=== PATIENT | male | born 1955 | race Caucasian/White ===

== ENCOUNTER → 2017-12-11 07:17 | Outpatient (CLI) | payer OTHER, SELFPAY ==
[2017-12-11 08:03] LABS: Hemoglobin A1c 7.7 % (4.2-6.3)
[2017-12-11 08:09] LABS: AST(SGOT) 19 U/L (15-37); Alanine Aminotransfer ALT/SGPT 29 U/L (16-61); Albumin, Serum 3.3 g/dL (3.2-5.0); Alkaline Phosphatase 48 U/L (45-117); Bilirubin, Direct 0.07 mg/dL (0.00-0.30); Cholesterol 149 mg/dL (200); Globulin 4.1 g/dL (2.2-4.2); High Density Lipoprotein 34 mg/dL; Protein, Total 7.4 g/dL (6.4-8.2); Triglycerides 118 mg/dL; Very Low Density Lipoprotein 24 mg/dL (5-40)
[2017-12-11 08:12] LABS: ALB/GLOB Ratio 0.8 RATIO (0.9-2.4); AST(SGOT) 16 U/L (15-37); Alanine Aminotransfer ALT/SGPT 27 U/L (16-61); Albumin, Serum 3.3 g/dL (3.2-5.0); Alkaline Phosphatase 49 U/L (45-117); Anion Gap 3 (5-15); BUN 14 mg/dL (7-18); BUN/Creat Ratio 13.7 RATIO (10-20); Calcium,Total 8.9 mg/dL (8.5-10.1); Chloride 97 mmol/L (98-107); Creatinine, Serum 1.02 mg/dL (0.70-1.30); EST Glomerular Filtration Rate 79 mL/min (>60); Est Glom Filt Rate - Afr Amer 96 mL/min (>60); Globulin 4.2 g/dL (2.2-4.2); Glucose 164 mg/dL (74-106); Potassium 4.8 mmol/L (3.5-5.1); Protein, Total 7.5 g/dL (6.4-8.2); Sodium Level 135 mmol/L (136-145)
[2017-12-11 08:54] LABS: Microalbumin,Random Urine 8.9 mg/L (NO RANGE EST.); Microalbumin:Creatinine Ratio 5.1 mg/g CRE (<30 mg/g CRE)
== END ==
PROVIDERS: Nurse Practitioner; Family Provider Nurse Practitioner Adult Health; PCP Nurse Practitioner Adult Health; Visit Provider Internal Medicine Cardiovascular Disease
DX: E11.9 Type 2 diabetes mellitus without complications (principal); E78.00 Pure hypercholesterolemia, unspecified
CPT/HCPCS: 36415; 80053; 80061; 80076; 82043; 82570; 83036

== ENCOUNTER → 2018-03-24 08:54 | Outpatient (CLI) | payer OTHER, SELFPAY ==
[2018-03-24 09:36] LABS: AST(SGOT) 15 U/L (15-37); Alanine Aminotransfer ALT/SGPT 29 U/L (16-61); Albumin, Serum 3.3 g/dL (3.2-5.0); Alkaline Phosphatase 52 U/L (45-117); Bilirubin, Direct 0.14 mg/dL (0.00-0.30); Cholesterol 150 mg/dL (200); Globulin 4.3 g/dL (2.2-4.2); High Density Lipoprotein 32 mg/dL; Protein, Total 7.6 g/dL (6.4-8.2); Triglycerides 122 mg/dL; Very Low Density Lipoprotein 24 mg/dL (5-40)
== END ==
PROVIDERS: Family Provider Nurse Practitioner Adult Health; PCP Nurse Practitioner Adult Health; Referring Provider Nurse Practitioner Family; Visit Provider Nurse Practitioner Family
DX: I25.10 Atherosclerotic heart disease of native coronary artery without angina pectoris (principal); E78.00 Pure hypercholesterolemia, unspecified; I10 Essential (primary) hypertension; R06.09 Other forms of dyspnea
CPT/HCPCS: 36415; 80061; 80076; 83880

== ENCOUNTER → 2018-04-07 06:11 | Outpatient (CLI) | payer OTHER, SELFPAY ==
--- NOTE | 2018-04-07 06:14 | ECHOD_ITS ---
Reason For Study: Dyspnea/SOB Procedure This was a 2D Doppler, Color Flow transthoracic echocardiogram. Exam performed in department. Left Ventricle Normal LV size. Left ventricular systolic function is normal. The estimated ejection fraction is 65 %. Stage 1 diastolic dysfunction. No regional wall motion abnormalities noted. Right Ventricle Normal RV size. Normal systolic function. Atria Normal left atrium. Normal right atrium. Mitral Valve Normal mitral valve. Mild (1+) eccentric mitral valve insufficiency. Tricuspid Valve Normal tricuspid valve. Mild tricuspid valve insufficiency. Aortic Valve Trisinus/trileaflet aortic valve. Mild focal aortic valve calcification. Mild (1+) eccentric aortic valve insufficiency. Pulmonic Valve Normal pulmonic valve. Great Vessels Normal aortic root. The pulmonary artery is normal size. Normal inferior vena cava. Pericardium/Pleural No pericardial effusion. MMode/2D Measurements & Calculations LVIDd: 4.8 cm IVSd: 1.8 cm LVOT diam: 2.1 cm LVIDs: 3.1 cm LVPWd: 1.1 cm LVOT area: 3.6 cm2 RVDd: 4.3 cm FS: 35.5 % Ao root diam: 3.7 cm LAV(MOD-bp): 54.4 ml LVAd ap4: 33.5 cm2 LAV(MOD-bp) Indexed: 19.5 ml/m2 EDV(MOD-sp4): 100.6 ml LAV(MOD-sp2): 62.5 ml EDV(sp4-el): 102.6 ml LAV(MOD-sp4): 45.4 ml LVAs ap4: 18.4 cm2 ESV(MOD-sp4): 39.8 ml ESV(sp4-el): 37.7 ml EF(MOD-sp4): 60.4 % EF(sp4-el): 63.2 % SV(MOD-sp4): 60.7 ml SV(sp4-el): 64.8 ml LA A4 area: 17.9 cm2 LA dimension(2D): 4.1 cm RA A4 area: 19.6 cm2 Doppler Measurements & Calculations MV E max brett: 80.0 cm/sec Lat Peak E' Brett: 6.8 cm/sec Med Peak E' Brett: 4.6 cm/sec MV A max brett: 104.6 cm/sec E/E' lat: 11.7 E/E' med: 17.5 MV E/A: 0.76 Ao V2 max: 193.6 cm/sec LV V1 max: 119.8 cm/sec SV(LVOT): 102.1 ml Ao max P.0 mmHg LV V1 max P.7 mmHg Ao V2 mean: 136.4 cm/sec LV V1 mean P.9 mmHg Ao mean P.2 mmHg LV V1 mean: 94.5 cm/sec Ao V2 VTI: 43.6 cm LV V1 VTI: 28.5 cm DANIELLA(I,D): 2.3 cm2 DANIELLA(V,D): 2.2 cm2 PA V2 max: 108.6 cm/sec TR max brett: 215.3 cm/sec TR max P.6 mmHg Interpretation Summary Normal LV size. Left ventricular systolic function is normal. The estimated ejection fraction is 65 %. Stage 1 diastolic dysfunction. Mild focal aortic valve calcification. Mild (1+) eccentric aortic valve insufficiency. Ordering Physician: Yadiel Karimi Referring Physician: Winsome Lorenzo Performed By: Sharmila Karimi, SADA, RVT
--- NOTE | 2018-04-07 09:05 | STRESSREP ---
Stress Test Report Pharmacologic myocardial perfusion stress test. 62-year-old male with a history of coronary disease. Stress protocol: Resting EKG demonstrates normal sinus rhythm with a rate of 68 bpm normal intervals and noted resting blood pressure 144/90 mmHg. 0.4 mg of regadenoson was infused per usual protocol followed by rapid intravenous and flush injection continuous EKG monitoring was performed. The maximum heart rate attained was 91 bpm which was 56% of maximum predicted heart rate the maximum workload was 1 metabolic equivalent. At rest there were no ST or T wave changes noted suggest ischemia at peak infusion no ST or T wave changes were noted suggest ischemia. The resting blood pressure 144/90 with a final blood pressure 142/84 mmHg. Myocardial perfusion protocol. 14.8 mCi of technetium 99m sestamibi was injected at rest. 0.4 mg regadenoson was infused per usual protocol peak infusion 44.7 mCi of technetium 99m sestamibi was injected stress images were obtained stress and rest images were reconstructed and compared in the short axis vertical long horizontal long axis. Gated images were also obtained next Perfusion SPECT analysis: Review of the stress images demonstrate normal uptake of tracer noted in all areas of the myocardium. Is a small area towards the apex with mildly reduced perfusion. The resting images similarly demonstrate normal uptake of tracer noted in all areas of myocardium. Is also a small area towards the apex with mildly reduced perfusion. No areas of reversibility are noted suggest ischemia. Gated SPECT analysis: The gated ejection fraction is noted to be 53%. Conclusion: Normal pharmacologic myocardial perfusion stress test. Preserved ejection fraction.
== END ==
LOC: CVS 06:12
PROVIDERS: Family Provider Nurse Practitioner Adult Health; PCP Nurse Practitioner Adult Health; Referring Provider Nurse Practitioner Family; Visit Provider Nurse Practitioner Family
DX: I25.10 Atherosclerotic heart disease of native coronary artery without angina pectoris (principal); I10 Essential (primary) hypertension; R06.09 Other forms of dyspnea; Z95.5 Presence of coronary angioplasty implant and graft; E78.00 Pure hypercholesterolemia, unspecified
CPT/HCPCS: 78452; 93017; 93306; A9500; A4216; J2785

== ENCOUNTER 2020-10-20 17:18 | Inpatient (IN) | payer OTHER, SELFPAY ==
[2020-10-20 17:18] VITALS: BP 151/79; PULSE 75; RESP 20; TEMP 36.8; O2SAT 90; O2SAT 92; BMI 49.9
--- NOTE | 2020-10-20 17:29 | EKG12_ITS ---
Test Reason : Blood Pressure : / mmHG Vent. Rate : 063 BPM Atrial Rate : 063 BPM P-R Int : 190 ms QRS Dur : 136 ms QT Int : 446 ms P-R-T Axes : 067 089 037 degrees QTc Int : 456 ms Normal sinus rhythm Right bundle branch block Abnormal ECG Confirmed by MISAEL RIVER, EUGENE ([id number]), advertising editor VERONICA ZAMORA ([id number]) on 10/23/2020 9:33:35 AM Referred By: Carmencita Rodriguez Confirmed By:EUGENE DOUGLAS MD
--- NOTE | 2020-10-20 17:32 | EDS_ITS ---
HPI History of Present Illness Chief Complaint: Chest Pain Detail of Chief Complaint: Burning in chest and arm pain and mild shortness of breath x1 hour Informant: patient Onset/Context/Timing Current Severity: 0/10 Narrative Narrative: Patient presents to the emergency department with discomfort in his chest that he thought was may be indigestion that started about an hour ago. Patient states that he ate a lot of jalapenos. Patient also had some aching in the arms bilaterally. And he felt mildly short of breath. He had similar symptoms last weekend that were short-lived. Patient was concerned because he does have a history of a cardiac stent 9 years ago. He denies fever cough or recent illness. He is a long distance heavy truck driver. No history of PE or DVT. Prior Similar Symptoms: Yes CVD Risk Factors: Positive for Hypertension, Diabetes and Hypercholesterolemia PE Risk Factors: Positive for Recent Travel/Surgery TAD Risk Factors: Positive for Hypertension; Negative for Marfan's Syndrome and Family History [facility] Medical History (Updated 10/20/20 @ 18:[address] Leeanna Hernandez, ) Atherosclerosis of [place] coronary artery of [place] heart without angina pectoris COPD (chronic obstructive pulmonary disease) DM type 2 (diabetes mellitus, type 2) Dyspnea on exertion Essential hypertension Obesity Pure hypercholesterolemia Home Medications aspirin 81 mg tablet,delayed release 81 mg PO QDAY 05/19/17 [History Last Taken Unknown] metformin 500 mg tablet See Rx Instructions PO TID #150 tab 12/07/17 [Rx Last Taken Unknown] blood sugar diagnostic #180 ea 08/23/18 [Rx Last Taken Unknown] blood-glucose meter #1 ea 08/23/18 [Rx Last Taken Unknown] lancets 30 gauge #180 ea 08/23/18 [Rx Last Taken Unknown] albuterol sulfate 90 mcg/actuation aerosol inhaler 2 puff INHALATION Q4H PRN gm 08/20/20 [History Last Taken Unknown] amlodipine 5 mg tablet 5 mg PO DAILY #90 tab 08/20/20 [Rx Last Taken Unknown] carvedilol 25 mg tablet 25 mg PO BID #180 tab 08/20/20 [Rx Last Taken Unknown] clopidogrel 75 mg tablet 75 mg PO DAILY #90 tab 08/20/20 [Rx Last Taken Unknown] clotrimazole-betamethasone 1 %-0.05 % topical cream 1 applic TOPICAL BID PRN 08/20/20 [History Last Taken Unknown] coenzyme Q10 100 mg capsule 200 mg PO DAILY cap 08/20/20 [History Last Taken Unknown] dulaglutide 0.75 mg/0.5 mL subcutaneous pen injector 0.75 mg SC QWEEK ml 08/20/20 [History Last Taken Unknown] enalapril maleate 20 mg tablet 20 mg PO BID #180 tab 08/20/20 [Rx Last Taken Unknown] glimepiride 2 mg tablet 2 mg PO BIDWMEAL tablet 08/20/20 [History Last Taken Unknown] hydrochlorothiazide 25 mg tablet 25 mg PO QDAY #90 tab 08/20/20 [Rx Last Taken Unknown] nitroglycerin 0.4 mg sublingual tablet 0.4 mg SUBLINGUAL Q5-15M PRN #25 tab 08/20/20 [Rx Last Taken Unknown] rosuvastatin 10 mg tablet 10 mg PO DAILY #90 tab 08/20/20 [Rx Last Taken Unknown] Allergy/AdvReac Type Severity Reaction Status Date / Time lovastatin Allergy Severe Unknown Verified 10/20/20 17:18 pravastatin Allergy Severe Unknown Verified 10/20/20 17:18 atorvastatin AdvReac Severe myalgias Verified 10/20/20 17:18 Family History Brother Diabetes Father COPD (chronic obstructive pulmonary disease) Surgical History History of coronary artery stent placement (08/27/11) Social History (Updated 08/20/20 @ 10:15 by Yadiel Karimi CUBE CUTTER, CUBE CUTTER-C) Smoking Status: Former smoker second hand exposure: No alcohol intake: never substance use type: does not use ROS ROS ED Review of Systems ROS Unobtainable: other Constitutional Constitutional ED: Reports lethargy; Denies chills, fever(s), sweats or weight loss Eyes Eyes: Denies blurry vision, change in vision or diplopia ENT ENT ED: Denies rhinorrhea or sore throat Cardiovascular Cardiovascular: Reports chest pain Respiratory/Chest Respiratory/Chest: Reports dyspnea Gastrointestinal Gastrointestinal: Denies abdominal pain, diarrhea, nausea or vomiting Genitourinary Genitourinary ED: Denies dysuria, hematuria or urinary frequency Musculoskeletal Musculoskeletal: Denies arthralgias, back pain, myalgias or neck pain Integumentary Denies abscess, Abrasions or rash Neurologic Neurologic: Denies headache(s) or weakness Psychiatric Psychiatric: Denies anxiety, depression or suicidal thoughts Endocrine Endocrinology: Denies polydipsia, polyphagia or polyuria Hematologic/Lymphatic Hematologic/Lymphatic: Denies easy bleeding, easy bruising or lymphadenopathy Allergic/Immunologic Allergic/Immunologic ED: Denies mouth swelling, tongue swelling or urticaria EXAM Physical Exam Const Vital Signs: 10/20/20 17:18 10/20/20 17:48 Temperature 98.2 F Temperature Source Temporal Pulse Rate 75 Respiratory Rate 20 H Blood Pressure 151/79 H Blood Pressure Mean 103 Pulse Ox 92 83 Oxygen Delivery Method Room Air Room Air Positive well nourished and well developed General Appearance ED: well developed and NAD HEENT Reports TM's clear and moist mucous membranes normocephalic and atraumatic; Negative for trauma or tenderness Tympanic Membrane ED: Yes TM's clear Eyes PERRL and EOMs intact bilaterally General Eye ED: Negative for pale conjunctiva or scleral icterus Neck no lymphadenopathy, supple and no JVD General: Negative for tenderness Chest Wall inspection of chest normal and palpation of chest normal Chest: Negative for tenderness Resp normal respiratory effort and clear to auscultation bilaterally Effort and Inspection: Negative for respiratory distress or pain with movement Auscultation: Negative for rhonchi, wheezes or diminished lung sounds Cardio regular rate, regular rhythm, S1 normal heart sound, S2 normal heart sound and no murmurs Peripheral Pulses: pulses 2+ throughout GI normal to inspection, nondistended, normoactive bowel sounds, soft to palpation, non-tender, non-distended and no masses Back/Spine no CVA tenderness and no thoracic nor lumbar tenderness Extremity normal to inspection General Extremety ED: Negative for edema General Extremity: Negative for edema Neuro oriented x3, CN's II-XII intact bilaterally, no sensory deficits noted and gait normal Sensorium / Orientation: awake, alert, oriented to person, oriented to place and oriented to time Motor Exam: strength 5/5 throughout and strength abnormal Psych mental status grossly normal Skin no rashes or lesions noted and no wounds Heart Score History: Moderately Suspicious ECG: Nonspecific Repolarization Age: >45 - <65 years Risk Factors: >/= 3 Risk Factors or History of CAD Troponin: >1 - <3 Normal Limit Score: 6 MDM MDM MDM Narrative Medical decision making narrative: Patient currently asymptomatic. He does have a elevated troponin of 0.483. No old values available. Recommended admission for concern of acute coronary syndrome and non-ST elevation AL. Case will be discussed with hospitalist. Lab Data Labs: Laboratory Results - last 24 hr 10/20/20 10/20/20 10/20/20 17:55 17:55 17:55 WBC 12.1 H RBC 4.80 Hgb 13.5 Hct 42.5 MCV 88.5 MCH 28.1 MCHC 31.8 L RDW Std Deviation 43.5 RDW Coeff of Cedric 13.3 Plt Count 214 MPV 9.9 Immature Gran % (Auto) 0.700 Neut % (Auto) 77.8 H Lymph % (Auto) 14.2 L [place] % (Auto) 4.9 Eos % (Auto) 2.1 Baso % (Auto) 0.3 Absolute Neuts (auto) 9.5 H Absolute Lymphs (auto) 1.72 Nucleated RBC % 0 D-Dimer Quant (PE/DVT) 0.51 H* Sodium 137 Potassium 3.8 Chloride 99 Carbon Dioxide 33.0 H Anion Gap 5 BUN 19 H Creatinine 0.90 Estim Creat Clear Calc 92.21 Est GFR (MDRD) Af Amer 110 Est GFR (MDRD) Non-Af 91 BUN/Creatinine Ratio 21.2 H Glucose 155 H Calcium 9.3 Troponin I 0.483 H Radiography Diagnostic Testing: Radiology Impression Chest X-Ray 10/20/20 17:46 IMPRESSION: Stable, nonacute portable x-ray examination of the chest. Electronically Signed: Byron Whipple MD ([place]) at 18:09 EDT , Service support , EKG Initial EKG: Comments: Sinus rhythm with a ventricular rate of 63 bpm with a right bundle branch block. Discharge Plan Triage Chief Complaint: Chest Pain ED Provider: Leeanna Hernandez Dx/Rx/DC Orders Clinical Impression: ACS (acute coronary syndrome), Non-ST elevated myocardial infarction Prescriptions: No Action aspirin [Adult Low Dose Aspirin] 81 mg tablet,delayed release (DR/EC) 81 mg PO QDAY RF: 0 coenzyme Q10 [Co Q-10] 100 mg capsule 200 mg PO DAILY RF: 0 clotrimazole-betamethasone 1-0.05 % cream 1 applic TOPICAL BID PRNRF: 0 albuterol sulfate 90 mcg/actuation HFA aerosol inhaler 2 puff INHALATION Q4H PRNRF: 0 dulaglutide 0.75 mg/0.5 mL pen injector 0.75 mg SC QWEEK RF: 0 glimepiride 2 mg tablet 2 mg PO BIDWMEAL RF: 0 amlodipine 5 mg tablet 5 mg PO DAILY Qty: 90 RF: 3 carvedilol [Coreg] 25 mg tablet 25 mg PO BID Qty: 180 RF: 3 clopidogrel 75 mg tablet 75 mg PO DAILY Qty: 90 RF: 3 enalapril maleate 20 mg tablet 20 mg PO BID Qty: 180 RF: 3 rosuvastatin [Crestor] 10 mg tablet 10 mg PO DAILY Qty: 90 RF: 3 hydrochlorothiazide 25 mg tablet 25 mg PO QDAY Qty: 90 RF: 3 nitroglycerin 0.4 mg tablet, sublingual 0.4 mg SUBLINGUAL Q5-15M PRN (Reason: chest pain) Qty: 25 RF: 6 metformin 500 mg tablet See Rx Instructions PO TID Qty: 150 RF: 11 (DME) Blood Glucose Test strip See Dose Instructions .ROUTE .MEDSUPPLY Qty: 180 RF: 5 (DME) blood-glucose meter misc See Dose Instructions .ROUTE .MEDSUPPLY Qty: 1 RF: 0 (DME) lancets 30 gauge misc See Dose Instructions .ROUTE .MEDSUPPLY Qty: 180 RF: 5 Primary Care Provider: Ti Ferreira Referrals: Ti Ferreira MD [Primary Care Provider] - Disposition Disposition: Acute Care Hospital [facility]
--- NOTE | 2020-10-20 17:46 | RAD_ITS ---
STUDY: X-RAY CHEST REASON FOR EXAM: Male, 65 years old. chest pain TECHNIQUE: AP COMPARISON: 10/14/2012 FINDINGS: Coarsened interstitial lung markings (likely fibrotic) but no airspace consolidation. Overall similar appearance since prior study. There is no demonstrated pleural abnormality. Normal size heart. Normal mediastinum and lyle. Normal visualized pulmonary arteries. Normal visualized aortic arch and descending thoracic aorta. No acute bony process. There is no demonstrated abnormality of the visualized soft tissue structures of the upper abdomen. RAD/Chest 1 View (Portable) IMPRESSION: Stable, nonacute portable x-ray examination of the chest. Electronically Signed: Byron Whipple MD ([place]) at 18:09 EDT , Service support ,
[2020-10-20 17:48] VITALS: O2SAT 83
[2020-10-20] MEDS: Aspirin 81 MG TAB.CHEW 324 MG PO (17:55)
[2020-10-20] MEDS: 0.9% Normal Saline 1,000 ML 150 ML IV (17:59)
[2020-10-20 18:11] LABS: Absolute Lymphocyte Count 1.72 X10^3/uL (0.83-4.51); Absolute Neutrophil Count 9.5 X10^3/uL (2.0-7.7); Basophil# 0.04 X10^3/uL; Basophil% 0.3 % (0-1); Eosinophil# 0.25 X10^3/uL; Eosinophils% 2.1 % (0-5); Hematocrit 42.5 % (40-54); Hemoglobin 13.5 g/dL (13.0-16.5); Lymphocyte # 1.72 X10^3/ul (0.83-4.51); Lymphocyte % 14.2 % (19-41); Mean Corp Hgb Conc 31.8 g/dL (32-36); Mean Corpuscular Hgb 28.1 pg (27.0-32.0); Mean Corpuscular Volume 88.5 fL (80-94); Mean Platelet Vol. 9.9 fl (6.2-12.0); Monocyte# 0.59 X10^3/uL; Monocyte% 4.9 % (0-10); NRBC Flagged by Analyzer 0 % (0-5); Neutrophil # 9.46 X10^3/uL (2.7-7.7); Neutrophil % 77.8 % (47-70); Platelet Count 214 K/mm3 (150-450); RBC Distribution Width CV 13.3 % (11.6-14.6); RBC Distribution Width SD 43.5 fl (35.1-43.9); White Blood Count 12.1 K/mm3 (4.4-11.0)
[2020-10-20 18:20] VITALS: BP 138/63; PULSE 66; RESP 14; O2SAT 98
[2020-10-20 18:21] LABS: D-Dimer Quantitative (DVT/PE) 0.51 FEU/ug/m (0.27-0.49)
[2020-10-20 18:29] LABS: Anion Gap 5 (5-15); BUN 19 mg/dL (7-18); BUN/Creat Ratio 21.2 RATIO (10-20); Calcium,Total 9.3 mg/dL (8.5-10.1); Chloride 99 mmol/L (98-107); EST Glomerular Filtration Rate 91 mL/min (>60); Est Glom Filt Rate - Afr Amer 110 mL/min (>60); Estimated Creatinine Clearance 92.21 ml/min; Glucose 155 mg/dL (74-106); Potassium 3.8 mmol/L (3.5-5.1); Sodium Level 137 mmol/L (136-145)
[2020-10-20 19:25] VITALS: BP 151/73; PULSE 70; RESP 14; TEMP 36.9; O2SAT 99
[2020-10-20] MEDS: HEPARIN/D5w 25,000 UNITS 25,000 UNITS/250 ML IV.SOLN. 20 UNITS IV (19:25)
[2020-10-20] MEDS: Heparin Injection (Vial) 5,000 UNIT/ML VIAL 13000 UNIT IV (19:26)
[2020-10-20 19:37] LABS: Partial Thromboplast Time 30.2 Seconds (24.1-36.2)
--- NOTE | 2020-10-20 20:48 | PN.HOSP_ITS ---
Hospitalist Note Physical Examination: General: awake, alert, oriented x 3 and cooperative, seated upright in bed in no apparent distress. Skin: normal color, turgor, no icterus, cyanosis. HEENT: AT/NC, EOMI, PERRLA, MMM, no carotid bruits or JVD noted. Lungs: CTA bilaterally, no rales, ronchi or wheezing. Heart: regular rate and rhythm; no gallop, rub audible. Abdomen: soft, NTTP, ND, normal BS, no HSM. Extremities: no cyanosis, clubbing, or edema. Neurological: patient awake, alert, oriented x 3, cognitive function intact; pupils equally reactive to light and accommodation, cranial nerves II-XII grossly normal, moving all 4 extremities, no focal deficits, strength preserved. Psychiatric: affect appears normal, no acute evidence of depressive or anxiety feelings. Admission Review of Systems: CONSTITUTIONAL: No weight loss, fever, chills, weakness or fatigue. HEENT: Eyes: No visual loss, blurred vision, double vision or yellow sclerae. Ears, Nose, Throat: No hearing loss, sneezing, congestion, runny nose or sore throat. SKIN: No rash or itching, lesions, wounds. CARDIOVASCULAR: No chest pain, chest pressure or chest discomfort, palpitations, edema, orthopnea, syncopal events. RESPIRATORY: No shortness of breath, cough or sputum, wheezing, hemoptysis. GASTROINTESTINAL: No anorexia, nausea, vomiting or diarrhea, abdominal pain, melena, BRBPR. GENITOURINARY: No dysuria, frequency, urgency or retention. NEUROLOGICAL: No headache, dizziness, syncope, paralysis, ataxia, numbness or tingling in the extremities, focal weakness, change in bowel or bladder control, seizure. MUSCULOSKELETAL: No muscle, back pain, joint pain or stiffness. HEMATOLOGIC: No anemia, bleeding or bruising. LYMPHATICS: No enlarged nodes. No history of splenectomy. PSYCHIATRIC: No history of depression or anxiety. ENDOCRINOLOGIC: No reports of sweating, cold or heat intolerance. No polyuria or polydipsia. ALLERGIES: No history of asthma, hives, eczema or rhinitis. ATTENDING PHYSICIAN NOTE: I have seen and examined the patient independently and agree with the assessment, plan, history per [] as noted. Chief Complaint: [] The patient is a [] y/o [] w/ PMHx: [] who presents to the [facility] ED on [] w/ history of []. Labs, Allergies, Home medications, Social Hx, PSurgHx, Family Hx per note below. Admission Review of Systems: CONSTITUTIONAL: No weight loss, fever, chills, weakness or fatigue. HEENT: Eyes: No visual loss, blurred vision, double vision or yellow sclerae. Ears, Nose, Throat: No hearing loss, sneezing, congestion, runny nose or sore throat. SKIN: No rash or itching, lesions, wounds. CARDIOVASCULAR: No chest pain, chest pressure or chest discomfort, palpitations, edema, orthopnea, syncopal events. RESPIRATORY: No shortness of breath, cough or sputum, wheezing, hemoptysis. GASTROINTESTINAL: No anorexia, nausea, vomiting or diarrhea, abdominal pain, melena, BRBPR. GENITOURINARY: No dysuria, frequency, urgency or retention. NEUROLOGICAL: No headache, dizziness, syncope, paralysis, ataxia, numbness or tingling in the extremities, focal weakness, change in bowel or bladder control, seizure. MUSCULOSKELETAL: No muscle, back pain, joint pain or stiffness. HEMATOLOGIC: No anemia, bleeding or bruising. LYMPHATICS: No enlarged nodes. No history of splenectomy. PSYCHIATRIC: No history of depression or anxiety. ENDOCRINOLOGIC: No reports of sweating, cold or heat intolerance. No polyuria or polydipsia. ALLERGIES: No history of asthma, hives, eczema or rhinitis. Admission VS: As noted below. Physical Examination: General: awake, alert, oriented x 3 and cooperative, seated upright in bed in no apparent distress. Skin: normal color, turgor, no icterus, cyanosis. HEENT: AT/NC, EOMI, PERRLA, MMM, no carotid bruits or JVD noted. Lungs: CTA bilaterally, no rales, ronchi or wheezing. Heart: regular rate and rhythm; no gallop, rub audible. Abdomen: soft, NTTP, ND, normal BS, no HSM. Extremities: no cyanosis, clubbing, or edema. Neurological: patient awake, alert, oriented x 3; cognitive function intact; pupils equally reactive to light and accommodation; cranial nerves II-XII grossly normal, moving all 4 extremities, no focal deficits, strength preserved. Psychiatric: affect appears normal, no acute evidence of depressive or anxiety feelings. Assessment and Plan: The patient is a [] y/o [] w/ PMHx: [] who presents to the [facility] ED on [] w/ history of []. (1) [] Additional Co-morbidities: [] [] [] ATTENDING PHYSICIAN DISCHARGE NOTE: I have seen and examined the patient independently and agree with the assessment, plan, history per [] as noted. Discharge Diagnoses: [] Discharge Summary: The patient is a [] y/o [] w/ PMHx: [] who presents to the [facility] ED on [] w/ []. Discharge Time: [] 35 Minutes DAY OF DISCHARGE PROGRESS NOTE: Subjective: Patient without acute event overnight per self and nursing report. Patient denies fever, chills, nausea, emesis, abdominal pain, chest pain or dyspnea. Patient agreeable to discharge to []. Patient will be discharged with follow-up with primary care physician within 3-5 days in addition to []. Objective: [] Physical Examination: General: awake, alert, oriented x 3 and cooperative, seated upright in the bed, NAD. Skin: normal color, turgor, no icterus, cyanosis. HEENT: AT/NC, EOMI, PERRLA, MMM. Lungs: CTA bilaterally, no rales, ronchi or wheezing; Heart: Regular rate and rhythm; no gallop, rub audible. Abdomen: soft, NTTP, ND, normal BS. Extremities: no cyanosis, clubbing, or edema. Neurological: patient awake, alert, oriented x 3; cognitive function appears intact upon questioning,; pupils equally reactive to light and accomodation; cranial nerves II-XII grossly normal, moving all 4 extremities, strength appropriate. Psychiatric: affect appears normal, no acute evidence of depressive or anxiety feelings. Assessment and Plan: Please see hospital summary above. ATTENDING PHYSICIAN NOTE: I have seen and examined the patient independently and agree with the assessment, plan, history per [] as noted. I have independently interviewed, examined and reviewed pertinent historical, laboratory and other data. Please refer to [] note for details on the patient presentation, findings and recommendations. I have reviewed []'s note and concur fully with documented findings with the following additions []. The patient is a [] y/o [] w/ PMHx: [] who presents to the [facility] ED on [] w/ history of []. Physical Examination: General: awake, alert, oriented x 3 and cooperative, seated upright in bed in no apparent distress. Skin: normal color, turgor, no icterus, cyanosis. HEENT: AT/NC, EOMI, PERRLA, MMM, no carotid bruits or JVD noted. Lungs: CTA bilaterally, moderate effort, mild decrease BL bases, no rales, ronch i or wheezing. Heart: regular rate and rhythm; no gallop, rub audible. Abdomen: soft, NTTP, ND, normal BS, no HSM. Extremities: no cyanosis, clubbing, or edema. Neurological: patient awake, alert, oriented x 3; cognitive function intact; pupils equally reactive to light and accomodation; cranial nerves II-XII grossly normal, moving all 4 extremities, no focal deficits, strength preserved. Psychiatric: affect appears normal, no acute evidence of depressive or anxiety feelings. Assessment and Plan: The patient is a [] y/o [] w/ PMHx: [] who presents to the [facility] ED on [] w/ history of []. (1) [] Additional Co-morbidities: [] [] []
--- NOTE | 2020-10-20 20:57 | EKG12_ITS ---
Test Reason : SHOULDER PAIN Blood Pressure : / mmHG Vent. Rate : 090 BPM Atrial Rate : 090 BPM P-R Int : 176 ms QRS Dur : 134 ms QT Int : 406 ms P-R-T Axes : 078 100 032 degrees QTc Int : 496 ms Normal sinus rhythm Right bundle branch block Abnormal ECG Confirmed by SAMPSON RIVER, OG ([id number]), newspaper or periodical editor VERONICA ZAMORA ([id number]) on 10/24/2020 9:49:14 AM Referred By: Carmencita Rodriguez Confirmed By:OG BRADEN MD
[2020-10-20 21:03] VITALS: PULSE 78
[2020-10-20 21:05] VITALS: BMI 49.6
[2020-10-20 21:10] VITALS: BP 168/74; PULSE 71; RESP 20; RESP 22; TEMP 37.3; O2SAT 94; O2SAT 95
--- NOTE | 2020-10-20 21:23 | PCM.HP.STD ---
[facility] - General General Date of Admission: 10/20/20 HPI Narrative BYRON COKER, is a 65 M who presented to the emergency department at [facility] on 10/20/2020 with a chief complaint of chest discomfort. The patient reported on admission that he felt like he was having indigestion as he did recently eat a lot of jalapenos. He also complained of bilateral aching in his arms and felt mildly shortness of breath but denied any nausea, vomiting, or diaphoresis. He reports he had similar episodes last weekend. He had a stent placed approximately 9 years ago and indicates that he had other noted areas of atherosclerosis that were nonintervenable at the time. His indicates on admission that he snores and does stop breathing but has never been diagnosed with obstructive sleep apnea. He also has a history of hypertension, hyperlipidemia, and type 2 diabetes. In the emergency department he was noted to be hypertensive but other vital signs were stable. Blood pressure was 168/74 at admission. His CBC showed a mildly elevated white count at 12.1. His D-dimer was mildly elevated at 0.51 but when age corrected is negative. His CMP shows an elevated serum bicarbonate but this appears to be at baseline, and elevated glucose at 154. His initial troponin was elevated at 0.483 and there are no other troponins in the system to compare. The patient is currently pain-free. He is EKG shows a chronic right bundle branch block but no signs of acute ST-T wave changes. See department he was loaded with aspirin and started on a heparin drip. The patient indicates he follows with Dr. Romo in the outpatient office. His last visit with cardiology was in July 2020. PENDING SALE TO [facility] Medical History (Updated 10/20/20 @ 21:[address] Carmencita Rodriguez, ) Atherosclerosis of [place] coronary artery of [place] heart without angina pectoris COPD (chronic obstructive pulmonary disease) DM type 2 (diabetes mellitus, type 2) Dyspnea on exertion Essential hypertension Obesity Pure hypercholesterolemia Home Medications aspirin 81 mg tablet,delayed release 81 mg PO QDAY 05/19/17 [History Last Taken Unknown] metformin 500 mg tablet See Rx Instructions PO TID #150 tab 12/07/17 [Rx Last Taken Unknown] blood sugar diagnostic #180 ea 08/23/18 [Rx Last Taken Unknown] blood-glucose meter #1 ea 08/23/18 [Rx Last Taken Unknown] lancets 30 gauge #180 ea 08/23/18 [Rx Last Taken Unknown] albuterol sulfate 90 mcg/actuation aerosol inhaler 2 puff INHALATION Q4H PRN gm 08/20/20 [History Last Taken Unknown] amlodipine 5 mg tablet 5 mg PO DAILY #90 tab 08/20/20 [Rx Last Taken Unknown] carvedilol 25 mg tablet 25 mg PO BID #180 tab 08/20/20 [Rx Last Taken Unknown] clopidogrel 75 mg tablet 75 mg PO DAILY #90 tab 08/20/20 [Rx Last Taken Unknown] coenzyme Q10 100 mg capsule 200 mg PO PRN PRN cap 08/20/20 [History Last Taken Unknown] dulaglutide 0.75 mg/0.5 mL subcutaneous pen injector 0.75 mg SC QWEEK ml 08/20/20 [History Last Taken Unknown] enalapril maleate 20 mg tablet 20 mg PO BID #180 tab 08/20/20 [Rx Last Taken Unknown] glimepiride 2 mg tablet 4 mg PO BIDWMEAL tablet 08/20/20 [History Last Taken Unknown] hydrochlorothiazide 25 mg tablet 25 mg PO QDAY #90 tab 08/20/20 [Rx Last Taken Unknown] nitroglycerin 0.4 mg sublingual tablet 0.4 mg SUBLINGUAL Q5-15M PRN #25 tab 08/20/20 [Rx Last Taken Unknown] rosuvastatin 10 mg tablet 10 mg PO DAILY #90 tab 08/20/20 [Rx Last Taken Unknown] Allergy/AdvReac Type Severity Reaction Status Date / Time lovastatin Allergy Severe Unknown Verified 10/20/20 17:18 pravastatin Allergy Severe Unknown Verified 10/20/20 17:18 atorvastatin AdvReac Severe myalgias Verified 10/20/20 17:18 Family History Brother Diabetes Father COPD (chronic obstructive pulmonary disease) Surgical History History of coronary artery stent placement (08/27/11) Social History (Updated 08/20/20 @ 10:15 by Yadiel Karimi [employer]ING [employer]ATION ENGINE[employer], [employer]ING [employer]ATION [employer]INE[employer]-C) Smoking Status: Former smoker second hand exposure: No alcohol intake: never substance use type: does not use ROS Review of Systems ROS Unobtainable: Denies due to encephalopathy, due to endotracheal tube, due to mental condition, due to mental status or other Constitutional Constitutional: Denies anorexia, change in weight, chills, fatigue, fever(s), malaise, night sweats, weakness or other Eyes Eyes: Denies blurry vision, change in eye color, change in vision, discharge from eye(s), double vision, erythema, eye pain, loss of vision or other ENT HEENT: Denies abnormal hearing, dysphagia, ear pain, epistaxis, headache(s), hearing loss, nasal congestion, nasal discharge, post nasal drip, sinus pressure, sore throat or other Cardiovascular Cardiovascular: Reports chest pain, dyspnea on exertion and edema; Denies claudication, lightheadedness, orthopnea, palpitations, paroxysmal nocturnal dyspnea, rapid heart rate, syncope or other Respiratory/Chest Respiratory/Chest: Reports shortness of breath at rest; Denies cough, dyspnea, excessive phlegm production, hemoptysis, productive cough, shortness of breath with exertion, wheezing or other Gastrointestinal Gastrointestinal: Reports dyspepsia and other; Denies abdominal pain, coffee ground emesis, constipation, diarrhea, hematemesis, hematochezia, loose stools, melena, nausea or vomiting Genitourinary Genitourinary: Denies burning urination, difficulty urinating, dysuria, hematuria, nocturia, urinary frequency, urinary hesitancy, urinary incontinence, urinary urgency or other Musculoskeletal Musculoskeletal: Denies arthralgias, back pain, joint pain, joint stiffness, joint swelling, myalgias, neck pain or other Neurologic Neurologic: Denies abnormal gait, abnormal speech, confusion, disequilibrium, dizziness, focal weakness, headache(s), numbness, paresthesias, seizure-like activity, seizures, syncope, tingling, tremor(s) or other Psychiatric Psychiatric: Denies anxiety, depression, homicidal ideation, suicidal ideation or other Endocrine Endocrinology: Denies change in body appearance, cold intolerance, excessive sweating, heat intolerance, polydipsia, polyuria or other Hematologic/Lymphatic Hematologic/Lymphatic: Denies anemia, easy bleeding, easy bruising, lymphadenopathy or other Allergic/Immunologic Allergic/Immunologic: Denies rhinitis, hives, eczemia, asthma or other Vital Signs Vital Signs Vital Signs: 10/20/20 17:18 10/20/20 17:48 10/20/20 18:20 Temperature 98.2 F Temperature Source Temporal Pulse Rate 75 66 Respiratory Rate 20 H 14 Respiratory Effort Respiratory Pattern Blood Pressure 151/79 H 138/63 H Blood Pressure Mean 103 88 Blood Pressure Source Blood Pressure Position Blood Pressure Location Pulse Ox 92 83 98 Oxygen Delivery Method Room Air Room Air Venturi Mask Oxygen Flow Rate (L/min) 2 10/20/20 19:25 10/20/20 21:10 Temperature 98.4 F 99.1 F Temperature Source Temporal Oral Pulse Rate 70 71 Respiratory Rate 14 22 H Respiratory Effort Normal Non-Labored Respiratory Pattern Tachypnea Blood Pressure 151/73 H 168/74 H Blood Pressure Mean 99 105 Blood Pressure Source Monitor Blood Pressure Position Semi-Fowlers Blood Pressure Location Right Forearm Pulse Ox 99 95 Oxygen Delivery Method Nasal Cannula Nasal Cannula Oxygen Flow Rate (L/min) 2 2 Physical Exam Const alert, oriented x3, no apparent distress, average body habitus, healthy appearing and well nourished Constitutional Narrative: Morbidly obese white male, sitting up in bed, at bedside General Appearance: cooperative; Negative for uncooperative Orientation / Consciousness: Negative for confused, disoriented or lethargic HEENT normocephalic, head/scalp atraumatic, hearing grossly normal bilaterally, moist oral mucous membranes and oropharynx normal HEENT Narrative: Fair dentition, Mallampati 3, no thrush Mouth: oral and palatal mucosa normal Eyes PERRL, EOMs intact bilaterally and conjunctivae normal Neck no lymphadenopathy, supple, no JVD and no carotid bruits Resp normal respiratory effort, no retractions, no use of accessory muscles and clear to auscultation bilaterally Auscultation: Negative for crackles, rales, rhonchi or wheezes Cardio regular rate, regular rhythm, S1 normal heart sound, S2 normal heart sound, no murmurs, no rub, no gallops, no clicks and no JVD GI normal to inspection, nondistended, normoactive bowel sounds, soft to palpation, non-tender and non-distended; Negative for hepatosplenomegaly GI Narrative: Obese Auscultation: Negative for hyperactive bowel sounds or hypoactive bowel sounds Palpation: Negative for tender, guarding or hernia Extremity full ROM Extremity Narrative: No cyanosis or clubbing, 1+ pitting edema-Per this is chronic Peripheral Pulses: Yes pulses 2+ throughout Skin no rashes or lesions noted, no wounds, skin turgor normal, no jaundice, no petechiae and no mottling Neuro oriented x3, CN's II-XII intact bilaterally, moves all extremities and no focal motor deficits Sensorium / Orientation: awake, alert, oriented to person, oriented to place and oriented to time Speech: speech normal Motor Exam: strength 5/5 throughout Psych affect normal Mood & Affect: Negative for depressed or anxious Lab / Micro Data Attestation: I reviewed the patient's lab results. Result Diagrams: 10/20/20 17:55 10/20/20 17:55 Labs: Laboratory Results - last 24 hr 10/20/20 10/20/20 10/20/20 17:55 17:55 17:55 WBC 12.1 H RBC 4.80 Hgb 13.5 Hct 42.5 MCV 88.5 MCH 28.1 MCHC 31.8 L RDW Std Deviation 43.5 RDW Coeff of Cedric 13.3 Plt Count 214 MPV 9.9 Immature Gran % (Auto) 0.700 Neut % (Auto) 77.8 H Lymph % (Auto) 14.2 L [place] % (Auto) 4.9 Eos % (Auto) 2.1 Baso % (Auto) 0.3 Absolute Neuts (auto) 9.5 H Absolute Lymphs (auto) 1.72 Nucleated RBC % 0 APTT D-Dimer Quant (PE/DVT) 0.51 H* Sodium 137 Potassium 3.8 Chloride 99 Carbon Dioxide 33.0 H Anion Gap 5 BUN 19 H Creatinine 0.90 Estim Creat Clear Calc 92.21 Est GFR (MDRD) Af Amer 110 Est GFR (MDRD) Non-Af 91 BUN/Creatinine Ratio 21.2 H Glucose 155 H Calcium 9.3 Troponin I 0.483 H 10/20/20 17:55 WBC RBC Hgb Hct MCV MCH MCHC RDW Std Deviation RDW Coeff of Cedric Plt Count MPV Immature Gran % (Auto) Neut % (Auto) Lymph % (Auto) [place] % (Auto) Eos % (Auto) Baso % (Auto) Absolute Neuts (auto) Absolute Lymphs (auto) Nucleated RBC % APTT 30.2 D-Dimer Quant (PE/DVT) Sodium Potassium Chloride Carbon Dioxide Anion Gap BUN Creatinine Estim Creat Clear Calc Est GFR (MDRD) Af Amer Est GFR (MDRD) Non-Af BUN/Creatinine Ratio Glucose Calcium Troponin I Radiology Impression Chest X-Ray 10/20/20 17:46 IMPRESSION: Stable, nonacute portable x-ray examination of the chest. Electronically Signed: Byron Whipple MD (Brooks) at 18:09 EDT , Service support , Assessment & Plan Assessment/Plan (1) Non-ST elevated myocardial infarction: (2) Essential hypertension: (3) Pure hypercholesterolemia: (4) Morbid obesity: (5) DM type 2 (diabetes mellitus, type 2): QUALIFIERS: Diabetes mellitus nursing home insulin use: without salvage determiner use Diabetes mellitus complication status: with unspecified complications Qualified Code(s): E11.8 - Type 2 diabetes mellitus with unspecified complications (6) ACS (acute coronary syndrome): (7) Atherosclerosis of [place] coronary artery of [place] heart without angina pectoris: (8) History of coronary artery stent placement: PLAN: ACS/NSTEMI -LHC done in 07/2011 -No lesions in the left main, LAD showed 60 to 70% stenosis proximally and 60% stenosis mid vessel with 90% stenosis at the proximal first diagonal, the left circumflex showed 60% stenosis proximally and less than 10% diffuse disease distally, RCA showed 90% stenosis and it was felt that this was the culprit lesion PCI to the RCA was performed at that time -Initial cardiac enzyme was elevated--> cycle -EKG shows no specific current findings consistent with acute ischemia -Continue heparin drip initiated in the emergency department -Continue aspirin/Plavix -Continue Crestor -As needed nitroglycerin -We will consult cardiology as I suspect cardiac catheterization will be needed DM-2 -Hold Metformin -Hold glipizide -SSI -Before meals and at bedtime BGT -Check hemoglobin A1c CAD/HTN/HPL -Continue Plavix and aspirin as above -Continue statin -Continue HCTZ -Continue enalapril -Continue carvedilol -Check lipids Morbid obesity -BMI is 49.6 -Recommend weight loss -This complicates overall prognosis and expected outcomes Suspected COURTNEY -Recommend outpatient polysomnography DVT prophylaxis -Patient is currently on heparin drip CODE STATUS -Full code
[2020-10-20] MEDS: Carvedilol 25 MG Tablet PO (22:45)
[2020-10-20] MEDS: Lisinopril 20 MG Tablet PO (22:45)
[2020-10-20 22:56] LABS: Bedside Glucose 147 mg/dL (70-110)
[2020-10-21] VITALS (10 sets, daily range): BP systolic 129–153; BP diastolic 56–94; PULSE 42–88; RESP 18–20; TEMP 36.4–36.8; O2SAT 92–95
[2020-10-21 01:48] LABS: Absolute Lymphocyte Count 1.93 X10^3/uL (0.83-4.51); Absolute Neutrophil Count 6.9 X10^3/uL (2.0-7.7); Basophil# 0.04 X10^3/uL; Basophil% 0.4 % (0-1); Eosinophil# 0.22 X10^3/uL; Eosinophils% 2.3 % (0-5); Hematocrit 41.8 % (40-54); Hemoglobin 13.1 g/dL (13.0-16.5); Lymphocyte # 1.93 X10^3/ul (0.83-4.51); Lymphocyte % 19.9 % (19-41); Mean Corp Hgb Conc 31.3 g/dL (32-36); Mean Corpuscular Hgb 28.1 pg (27.0-32.0); Mean Corpuscular Volume 89.5 fL (80-94); Mean Platelet Vol. 9.8 fl (6.2-12.0); Monocyte# 0.51 X10^3/uL; Monocyte% 5.3 % (0-10); NRBC Flagged by Analyzer 0 % (0-5); Neutrophil # 6.93 X10^3/uL (2.7-7.7); Neutrophil % 71.5 % (47-70); Platelet Count 205 K/mm3 (150-450); RBC Distribution Width CV 13.5 % (11.6-14.6); RBC Distribution Width SD 43.8 fl (35.1-43.9); Red Blood Count 4.67 M/mm3 (4.6-6.2); White Blood Count 9.7 K/mm3 (4.4-11.0)
[2020-10-21 02:04] LABS: Partial Thromboplast Time 99.3 Seconds (24.1-36.2)
[2020-10-21 02:09] LABS: Hemoglobin A1c 6.6 % (3.8-5.6)
[2020-10-21 02:13] LABS: ALB/GLOB Ratio 0.8 RATIO (0.9-2.4); AST(SGOT) 16 U/L (15-37); Alanine Aminotransfer ALT/SGPT 22 U/L (16-61); Albumin, Serum 3.1 g/dL (3.2-5.0); Alkaline Phosphatase 46 U/L (45-117); Anion Gap 4 (5-15); BUN 15 mg/dL (7-18); BUN/Creat Ratio 18.6 RATIO (10-20); Calcium,Total 8.9 mg/dL (8.5-10.1); Chloride 101 mmol/L (98-107); Cholesterol 114 mg/dL (200); Creatinine, Serum 0.81 mg/dL (0.70-1.30); EST Glomerular Filtration Rate 103 mL/min (>60); Est Glom Filt Rate - Afr Amer 124 mL/min (>60); Estimated Creatinine Clearance 102.46 ml/min; Globulin 3.9 g/dL (2.2-4.2); Glucose 159 mg/dL (74-106); High Density Lipoprotein 30 mg/dL; Potassium 3.8 mmol/L (3.5-5.1); Sodium Level 136 mmol/L (136-145); Thyroid Stim Hormone (TSH) 2.33 uIU/mL (0.358-3.74); Triglycerides 167 mg/dL; Very Low Density Lipoprotein 33 mg/dL (5-40)
[2020-10-21] MEDS: 0.9% Normal Saline 1,000 ML 150 ML IV ×3 (02:15→15:22)
--- NOTE | 2020-10-21 05:20 | EKG12_ITS ---
Test Reason : DYSRHYTHMIA Blood Pressure : / mmHG Vent. Rate : 073 BPM Atrial Rate : 073 BPM P-R Int : 222 ms QRS Dur : 138 ms QT Int : 430 ms P-R-T Axes : 058 094 044 degrees QTc Int : 473 ms Sinus rhythm with 1st degree A-V block Right bundle branch block Abnormal ECG Confirmed by SAMPSON RIVER, OG ([id number]), editor at large VERONICA ZAMORA ([id number]) on 10/24/2020 9:53:19 AM Referred By: Carmencita Rodriguez Confirmed By:OG BRADEN MD
--- NOTE | 2020-10-21 05:55 | ECHOCS_ITS ---
Reason For Study: NSTEMI Procedure This was a 2D Doppler, Color Flow transthoracic echocardiogram. Very technically difficult study. Patient scanned post cath and elevated due to discomfort. Contrast injection was used to cupola liner helper in the image quality of exam. Exam performed portable in patient room. Left Ventricle Normal LV size. Left ventricular systolic function is normal. The estimated ejection fraction is 60 %. No regional wall motion abnormalities noted. Right Ventricle Normal RV size. Normal systolic function. Atria Normal left atrium. Normal right atrium. Mitral Valve Normal mitral valve. Tricuspid Valve Normal tricuspid valve. Aortic Valve The aortic valve is not well visualized. Mild aortic stenosis. Pulmonic Valve The pulmonic valve is not well visualized. Great Vessels Normal aortic root. The pulmonary artery is normal size. Normal inferior vena cava. Pericardium/Pleural No pericardial effusion. Medication Diluted definity 5ml given slow IV push to enhance endocardial definition. MMode/2D Measurements & Calculations LVOT diam: 2.1 cm LA dimension: 3.9 cm LAV(MOD-bp): 46.0 ml LVOT area: 3.4 cm2 LAV(MOD-bp) Indexed: 16.7 ml/m2 LAV(MOD-sp2): 40.4 ml LAV(MOD-sp4): 54.7 ml LA A4 area: 18.3 cm2 RA A4 area: 18.9 cm2 Time Measurements MV dec time: 0.22 sec Doppler Measurements & Calculations MV E max brett: 85.2 cm/sec Lat Peak E' Brett: 10.3 cm/sec Med Peak E' Brett: 5.3 cm/sec MV A max brett: 74.9 cm/sec E/E' lat: 8.3 E/E' med: 16.0 MV E/A: 1.1 MV V2 max: 127.1 cm/sec MV P1/2t max brett: 129.0 cm/sec Ao V2 max: 173.1 cm/sec MV max P.5 mmHg MV P1/2t: 99.3 msec Ao max P.0 mmHg MV V2 mean: 75.4 cm/sec Ao V2 mean: 109.1 cm/sec MV mean P.7 mmHg MV dec slope: 380.8 cm/sec2 Ao mean P.6 mmHg MV V2 VTI: 35.6 cm MVA(P1/2t): 2.2 cm2 Ao V2 VTI: 33.1 cm MVA(VTI): 2.2 cm2 DANIELLA(I,D): 2.4 cm2 DANIELLA(V,D): 2.0 cm2 LV V1 max: 103.7 cm/sec SV(LVOT): 79.3 ml PA V2 max: 147.3 cm/sec LV V1 max P.3 mmHg LV V1 mean P.1 mmHg LV V1 mean: 67.6 cm/sec LV V1 VTI: 23.3 cm ECHO/Echo Complete W/ Contrast Interpretation Summary Normal LV size. Left ventricular systolic function is normal. The estimated ejection fraction is 60 %. Contrast injection was performed. Ordering Physician: Lisa Wells Referring Physician: Michael, Carmencita Performed By: Deepak Aaron RCS
[2020-10-21] MEDS: Albuterol 2.5 MG/3 ML VIAL.NEB. INHALATION (06:50)
[2020-10-21 07:25] LABS: Bedside Glucose 137 mg/dL (70-110)
[2020-10-21] MEDS: HEPARIN/D5w 25,000 UNITS 25,000 UNITS/250 ML IV.SOLN. 18 UNITS IV (08:58)
[2020-10-21] MEDS: hydroCHLOROthiazide 25 MG Tablet PO (09:01)
[2020-10-21] MEDS: amLODIPine 5 MG Tablet PO (09:01)
[2020-10-21] MEDS: Clopidogrel Bisulfate 75 MG Tablet PO (09:01)
[2020-10-21] MEDS: Aspirin E.C. 81 MG Tablet PO (09:01)
[2020-10-21] MEDS: Carvedilol 25 MG Tablet PO ×2 (09:01→21:15)
[2020-10-21] MEDS: Lisinopril 20 MG Tablet PO ×2 (09:01→21:15)
[2020-10-21 09:57] LABS: Partial Thromboplast Time 44.5 Seconds (24.1-36.2)
[2020-10-21] MEDS: Heparin Injection (Vial) 5,000 UNIT/ML VIAL IV ×2 (10:17→15:24)
--- NOTE | 2020-10-21 10:59 | PN.HOSP_ITS ---
Documented by User: Riddhi Blancas NP, [employer] 10/21/20 11:07 Subjective Subjective Patient seen and examined. Denies chest pain, shortness of breath at rest. States he has dyspnea on exertion which has been ongoing. Denies other associated symptoms or complaints. Objective Data Objective Data Vital Signs: Vital Signs Temp Pulse Resp BP Pulse Ox 98.3 F 76 20 H 139/83 H 92 10/21/20 09:09 10/21/20 09:09 10/21/20 09:09 10/21/20 09:09 10/21/20 09:09 Oxygen Flow Rate (L/min) 2 Oxygen Delivery Method Room Air Weight: 365 lb 11.95 oz Body Mass Index (BMI) 49.6 Intake & Output: Intake and Output for Last 24 Hours 10/19/20 10/20/20 10/21/20 23:59 23:59 23:59 Intake Total 2259.33 / 2259.33 Balance 2259.33 / 2259.33 Lab / Micro Data Result Diagrams: 10/21/20 01:35 10/21/20 01:35 Labs: Laboratory Results - last 24 hr 10/20/20 10/20/20 10/20/20 17:55 17:55 17:55 WBC 12.1 H RBC 4.80 Hgb 13.5 Hct 42.5 MCV 88.5 MCH 28.1 MCHC 31.8 L RDW Std Deviation 43.5 RDW Coeff of Cedric 13.3 Plt Count 214 MPV 9.9 Immature Gran % (Auto) 0.700 Neut % (Auto) 77.8 H Lymph % (Auto) 14.2 L [place] % (Auto) 4.9 Eos % (Auto) 2.1 Baso % (Auto) 0.3 Absolute Neuts (auto) 9.5 H Absolute Lymphs (auto) 1.72 Nucleated RBC % 0 APTT D-Dimer Quant (PE/DVT) 0.51 H* Sodium 137 Potassium 3.8 Chloride 99 Carbon Dioxide 33.0 H Anion Gap 5 BUN 19 H Creatinine 0.90 Estim Creat Clear Calc 92.21 Est GFR (MDRD) Af Amer 110 Est GFR (MDRD) Non-Af 91 BUN/Creatinine Ratio 21.2 H Glucose 155 H Hemoglobin A1c Calcium 9.3 Phosphorus Magnesium Total Bilirubin AST ALT Alkaline Phosphatase Troponin I 0.483 H Total Protein Albumin Globulin Albumin/Globulin Ratio Triglycerides Cholesterol LDL Cholesterol VLDL Cholesterol HDL Cholesterol TSH POC Glucose 10/20/20 10/20/20 10/20/20 17:55 21:25 22:47 WBC RBC Hgb Hct MCV MCH MCHC RDW Std Deviation RDW Coeff of Cedric Plt Count MPV Immature Gran % (Auto) Neut % (Auto) Lymph % (Auto) [place] % (Auto) Eos % (Auto) Baso % (Auto) Absolute Neuts (auto) Absolute Lymphs (auto) Nucleated RBC % APTT 30.2 D-Dimer Quant (PE/DVT) Sodium Potassium Chloride Carbon Dioxide Anion Gap BUN Creatinine Estim Creat Clear Calc Est GFR (MDRD) Af Amer Est GFR (MDRD) Non-Af BUN/Creatinine Ratio Glucose Hemoglobin A1c Calcium Phosphorus Magnesium Total Bilirubin AST ALT Alkaline Phosphatase Troponin I 0.618 H* Total Protein Albumin Globulin Albumin/Globulin Ratio Triglycerides Cholesterol LDL Cholesterol VLDL Cholesterol HDL Cholesterol TSH POC Glucose 147 H 10/20/20 10/21/20 10/21/20 23:58 01:35 01:35 WBC 9.7 RBC 4.67 Hgb 13.1 Hct 41.8 MCV 89.5 MCH 28.1 MCHC 31.3 L RDW Std Deviation 43.8 RDW Coeff of Cedric 13.5 Plt Count 205 MPV 9.8 Immature Gran % (Auto) 0.600 Neut % (Auto) 71.5 H Lymph % (Auto) 19.9 [place] % (Auto) 5.3 Eos % (Auto) 2.3 Baso % (Auto) 0.4 Absolute Neuts (auto) 6.9 Absolute Lymphs (auto) 1.93 Nucleated RBC % 0 APTT D-Dimer Quant (PE/DVT) Sodium 136 Potassium 3.8 Chloride 101 Carbon Dioxide 31.0 Anion Gap 4 L BUN 15 Creatinine 0.81 Estim Creat Clear Calc 102.46 Est GFR (MDRD) Af Amer 124 Est GFR (MDRD) Non-Af 103 BUN/Creatinine Ratio 18.6 Glucose 159 H Hemoglobin A1c Calcium 8.9 Phosphorus 4.0 Magnesium 2.0 Total Bilirubin 0.30 AST 16 ALT 22 Alkaline Phosphatase 46 Troponin I 0.790 H* Total Protein 7.0 Albumin 3.1 L Globulin 3.9 Albumin/Globulin Ratio 0.8 L Triglycerides 167 Cholesterol 114 LDL Cholesterol 51 VLDL Cholesterol 33 HDL Cholesterol 30 L TSH 2.33 POC Glucose 10/21/20 10/21/20 10/21/20 01:35 01:35 06:38 WBC RBC Hgb Hct MCV MCH MCHC RDW Std Deviation RDW Coeff of Cedric Plt Count MPV Immature Gran % (Auto) Neut % (Auto) Lymph % (Auto) [place] % (Auto) Eos % (Auto) Baso % (Auto) Absolute Neuts (auto) Absolute Lymphs (auto) Nucleated RBC % APTT 99.3 H* D-Dimer Quant (PE/DVT) Sodium Potassium Chloride Carbon Dioxide Anion Gap BUN Creatinine Estim Creat Clear Calc Est GFR (MDRD) Af Amer Est GFR (MDRD) Non-Af BUN/Creatinine Ratio Glucose Hemoglobin A1c 6.6 H Calcium Phosphorus Magnesium Total Bilirubin AST ALT Alkaline Phosphatase Troponin I Total Protein Albumin Globulin Albumin/Globulin Ratio Triglycerides Cholesterol LDL Cholesterol VLDL Cholesterol HDL Cholesterol TSH POC Glucose 137 H 10/21/20 09:12 WBC RBC Hgb Hct MCV MCH MCHC RDW Std Deviation RDW Coeff of Cedric Plt Count MPV Immature Gran % (Auto) Neut % (Auto) Lymph % (Auto) [place] % (Auto) Eos % (Auto) Baso % (Auto) Absolute Neuts (auto) Absolute Lymphs (auto) Nucleated RBC % APTT 44.5 H D-Dimer Quant (PE/DVT) Sodium Potassium Chloride Carbon Dioxide Anion Gap BUN Creatinine Estim Creat Clear Calc Est GFR (MDRD) Af Amer Est GFR (MDRD) Non-Af BUN/Creatinine Ratio Glucose Hemoglobin A1c Calcium Phosphorus Magnesium Total Bilirubin AST ALT Alkaline Phosphatase Troponin I Total Protein Albumin Globulin Albumin/Globulin Ratio Triglycerides Cholesterol LDL Cholesterol VLDL Cholesterol HDL Cholesterol TSH POC Glucose Radiography Diagnostic Testing: Radiology Impression Chest X-Ray 10/20/20 17:46 IMPRESSION: Stable, nonacute portable x-ray examination of the chest. Electronically Signed: Byron Whipple MD (Brooks) at 18:09 EDT , Service support , Physical Exam Const alert, oriented x3 and no apparent distress Orientation / Consciousness: awake, oriented to person, oriented to place and oriented to time HEENT normocephalic and moist oral mucous membranes Eyes PERRL, EOMs intact bilaterally and conjunctivae normal Neck no lymphadenopathy Resp normal respiratory effort and clear to auscultation bilaterally Cardio regular rate, regular rhythm and no murmurs Peripheral Pulses: pulses 2+ throughout GI normal to inspection, nondistended, normoactive bowel sounds, non-tender and non-distended Extremity normal to inspection Skin no rashes or lesions noted Lesions: no lesions Rashes: no rashes Trauma: no lacerations or abrasions Neuro CN's II-XII intact bilaterally, no focal motor deficits, no sensory deficits noted and deep tendon reflexes 2+ bilaterally Psych mental status grossly normal and affect normal Assessment & Plan Assessment/Plan (1) Non-ST elevated myocardial infarction: PLAN: 1. NSTEMI-on heparin drip. Continue aspirin, Plavix, statin. As needed nitrate. Cardiology consulted. Anticipate heart cath in a.m. 2. CAD with history of PCI-on aspirin, statin, Plavix, beta-karena. 3. Type 2 diabetes mellitus-oral regimen on hold. Continue Accu-Cheks with sliding scale insulin. 4. Hypertension-stable, continue enalapril, carvedilol, HCTZ. 5. Hyperlipidemia-continue statin. 6. Morbid obesity-encouraged diet and lifestyle modifications. 7. Suspected COURTNEY-recommend outpatient PSG. DVT prophylaxis-Heparin drip This patient was seen by KERA Canela under the supervision of Dr. Coyne. Documented by User: Dr. Scott Coyne MD 10/21/20 11:16 Objective Data Lab / Micro Data Result Diagrams: 10/21/20 01:35 10/21/20 01:35 Assessment & Plan Addt'l Comments This patient was seen in conjunction with KERA Canela . I have independently interviewed and examined the patient and reviewed pertinent historical, laboratory, and other data. Please refer to KERA Canela note for details of this patient's presentation, findings, and recommendations. I have reviewed KERA Canela note and concur with documented fi ndings. In brief, patient is a 65-year-old gentleman with multiple comorbidities admitted with chest discomfort and shortness of breath and assessment of acute non-STEMI Physical Examination: GENERAL: cooperative HEENT: Atraumatic; EYES; Anicteric, Normal Conjunctiva NECK; supple, normal thyroid, RESPIRATORY: Diminished to auscultation CARDIOVASCULAR: Regular S1 S2, GI: soft, normoactive bowel sounds, : No Renal angle tenderness; EXTREMITIES: No edema, no clubbing, MUSCULOSKELETAL: no muscle waisting NEURO: Awake; no lateralizing signs. SKIN: No Rash PSYCH; Flat affect Assessment: 1. Acute non-STEMI 2. Essential potential 3. Morbid obesity with BMI of 49.6 4. Diabetes mellitus type 2 5. Coronary artery disease with previous PCI 6. Dyslipidemia 7. Suspected obstructive sleep apnea 8. DVT prophylaxis?heparin Recommendations: 1. I have discussed the results of my overview and impressions with the patient 2. Options for management were reviewed Visit Charges Inpatient E&M: [id number] [facility] L3
[2020-10-21] MEDS: Insulin Lispro 100 UNIT/ML INSULN.PEN SC (11:49)
[2020-10-21 11:51] LABS: Bedside Glucose 186 mg/dL (70-110)
[2020-10-21] MEDS: DULAGLUTIDE 0.75 MG/0.5 ML PEN.INJCTR SC (13:34)
--- NOTE | 2020-10-21 15:03 | PCM.CONS.C ---
Assessment & Plan Assessment/Plan (1) ACS (acute coronary syndrome): PLAN: Patient has presented with non-STEMI. We will proceed with coronary angiography tomorrow. Patient understands risks and benefits and wishes to proceed. Agree with continuing aspirin, Plavix, statin, beta-karena. Agree with continuing heparin drip. (2) Non-ST elevated myocardial infarction: (3) History of coronary artery stent placement: HPI Consult Data Date of Consult: 10/21/20 Attending Care Provider: Non-STEMI HPI Narrative Reason for Consultation: Non-STEMI HPI Narrative: RUMA COKER, is a 65 M who presents with chest pain. His troponin went up to 0.79. He has a history of non-ST elevation myocardial infarction with bare-metal stenting to his right coronary artery in 2011. He also has a history hypertension and diabetes mellitus and obesity. Review of systems: All systems reviewed. All else is negative except as in HPI PFSH Medical History Atherosclerosis of [place] coronary artery of [place] heart without angina pectoris Chest pain COPD (chronic obstructive pulmonary disease) Coronary artery disease DM type 2 (diabetes mellitus, type 2) Dyspnea on exertion Essential hypertension Obesity Pure hypercholesterolemia Home Medications aspirin 81 mg tablet,delayed release 81 mg PO QDAY 05/19/17 [History Last Taken 10/20/20] metformin 500 mg tablet See Rx Instructions PO TID #150 tab 12/07/17 [Rx Last Taken Unknown] blood sugar diagnostic #180 ea 08/23/18 [Rx Last Taken Unknown] blood-glucose meter #1 ea 08/23/18 [Rx Last Taken Unknown] lancets 30 gauge #180 ea 08/23/18 [Rx Last Taken Unknown] albuterol sulfate 90 mcg/actuation aerosol inhaler 2 puff INHALATION Q4H PRN gm 08/20/20 [History Last Taken 10/20/20] amlodipine 5 mg tablet 5 mg PO DAILY #90 tab 08/20/20 [Rx Last Taken 10/20/20] carvedilol 25 mg tablet 25 mg PO BID #180 tab 08/20/20 [Rx Last Taken 10/20/20 10:00] clopidogrel 75 mg tablet 75 mg PO DAILY #90 tab 08/20/20 [Rx Last Taken 10/20/20] coenzyme Q10 100 mg capsule 200 mg PO PRN PRN cap 08/20/20 [History Last Taken Unknown] dulaglutide 0.75 mg/0.5 mL subcutaneous pen injector 0.75 mg SC QWEEK ml 08/20/20 [History Last Taken Unknown] enalapril maleate 20 mg tablet 20 mg PO BID #180 tab 08/20/20 [Rx Last Taken 10/20/20 10:00] glimepiride 2 mg tablet 4 mg PO BIDWMEAL tablet 08/20/20 [History Last Taken 10/20/20 10:00] hydrochlorothiazide 25 mg tablet 25 mg PO QDAY #90 tab 08/20/20 [Rx Last Taken 10/20/20] nitroglycerin 0.4 mg sublingual tablet 0.4 mg SUBLINGUAL Q5-15M PRN #25 tab 08/20/20 [Rx Last Taken 10/20/20] rosuvastatin 10 mg tablet 10 mg PO DAILY #90 tab 08/20/20 [Rx Last Taken 10/19/20] Allergy/AdvReac Type Severity Reaction Status Date / Time lovastatin Allergy Severe Unknown Verified 10/20/20 17:18 pravastatin Allergy Severe Unknown Verified 10/20/20 17:18 atorvastatin AdvReac Severe myalgias Verified 10/20/20 17:18 Family History Brother Diabetes Father COPD (chronic obstructive pulmonary disease) Surgical History H/O cardiac catheterization History of coronary artery stent placement (08/27/11) Social History (Updated 08/20/20 @ 10:15 by Yadiel Karimi RN INTAKE, RN INTAKE-C) Smoking Status: Former smoker second hand exposure: No alcohol intake: never substance use type: does not use Physical Exam Const alert and oriented x3 Orientation / Consciousness: awake HEENT normocephalic Eyes no scleral icterus Neck no JVD Chest inspection of chest normal Resp normal respiratory effort Cardio regular rate Extremity no pedal edema Skin no rashes or lesions noted Neuro oriented x3 Psych mental status grossly normal
[2020-10-21 16:51] LABS: Bedside Glucose 98 mg/dL (70-110)
[2020-10-21 21:25] LABS: Bedside Glucose 129 mg/dL (70-110)
[2020-10-21] MEDS: HEPARIN/D5w 25,000 UNITS 25,000 UNITS/250 ML IV.SOLN. 20 UNITS IV (21:25)
[2020-10-22] VITALS (19 sets, daily range): BP systolic 141–171; BP diastolic 48–89; PULSE 70–135; RESP 19–24; TEMP 36.7–37.7; O2SAT 77–94
[2020-10-22] MEDS: Mag Hydrox/Al Hydrox/Simeth 30 ML UDC PO ×2 (02:49→14:09)
[2020-10-22 03:35] LABS: Absolute Lymphocyte Count 1.55 X10^3/uL (0.83-4.51); Absolute Neutrophil Count 10.1 X10^3/uL (2.0-7.7); Basophil# 0.05 X10^3/uL; Basophil% 0.4 % (0-1); Eosinophil# 0.23 X10^3/uL; Eosinophils% 1.8 % (0-5); Hematocrit 43.2 % (40-54); Hemoglobin 13.8 g/dL (13.0-16.5); Lymphocyte # 1.55 X10^3/ul (0.83-4.51); Lymphocyte % 12.4 % (19-41); Mean Corp Hgb Conc 31.9 g/dL (32-36); Mean Corpuscular Hgb 28.5 pg (27.0-32.0); Mean Corpuscular Volume 89.3 fL (80-94); Mean Platelet Vol. 9.4 fl (6.2-12.0); Monocyte# 0.51 X10^3/uL; Monocyte% 4.1 % (0-10); NRBC Flagged by Analyzer 0 % (0-5); Neutrophil % 80.8 % (47-70); Platelet Count 206 K/mm3 (150-450); RBC Distribution Width CV 13.2 % (11.6-14.6); RBC Distribution Width SD 43.3 fl (35.1-43.9); Red Blood Count 4.84 M/mm3 (4.6-6.2); White Blood Count 12.5 K/mm3 (4.4-11.0)
[2020-10-22 03:40] LABS: Partial Thromboplast Time 76.1 Seconds (24.1-36.2)
[2020-10-22 03:45] LABS: Anion Gap 4 (5-15); BUN 11 mg/dL (7-18); BUN/Creat Ratio 12.4 RATIO (10-20); Chloride 98 mmol/L (98-107); Creatinine, Serum 0.89 mg/dL (0.70-1.30); EST Glomerular Filtration Rate 92 mL/min (>60); Est Glom Filt Rate - Afr Amer 111 mL/min (>60); Estimated Creatinine Clearance 93.25 ml/min; Glucose 153 mg/dL (74-106); Sodium Level 135 mmol/L (136-145)
--- NOTE | 2020-10-22 05:55 | EKG12_ITS ---
Test Reason : AM EKG Blood Pressure : / mmHG Vent. Rate : 072 BPM Atrial Rate : 072 BPM P-R Int : 196 ms QRS Dur : 138 ms QT Int : 422 ms P-R-T Axes : 071 096 032 degrees QTc Int : 462 ms Sinus rhythm with marked sinus arrhythmia Right bundle branch block Abnormal ECG Confirmed by SAMPSON RIVER, OG ([id number]), manager editorial VERONICA ZAMORA ([id number]) on 10/24/2020 9:48:09 AM Referred By: Carmencita Rodriguez Confirmed By:OG BRADEN MD
[2020-10-22] MEDS: Lisinopril 20 MG Tablet PO (06:42)
[2020-10-22] MEDS: Carvedilol 25 MG Tablet PO (06:42)
[2020-10-22] MEDS: Clopidogrel Bisulfate 75 MG Tablet PO (06:42)
[2020-10-22] MEDS: Aspirin E.C. 81 MG Tablet PO (06:43)
[2020-10-22] MEDS: amLODIPine 5 MG Tablet PO (06:43)
[2020-10-22 06:50] LABS: Bedside Glucose 143 mg/dL (70-110)
[2020-10-22] MEDS: 0.9% Saline Lock 10 ML Syringe IV ×3 (07:05→15:30)
[2020-10-22] MEDS: 0.9% Normal Saline 1,000 ML 15 ML IV (07:07)
--- NOTE | 2020-10-22 08:53 | PCM.PN.CARD ---
Subjective Subjective Patient seen and evaluated. Underwent cardiac catheterization today. Objective Data Vital Signs: Vital Signs Temp Pulse Resp BP Pulse Ox 98.4 F 73 19 H 141/48 H 93 10/22/20 06:39 10/22/20 06:58 10/22/20 06:39 10/22/20 06:39 10/22/20 07:32 Oxygen Flow Rate (L/min) 2 Oxygen Delivery Method Nasal Cannula Weight: 365 lb 11.95 oz Body Mass Index (BMI) 49.6 Intake & Output: Intake and Output for Last 24 Hours 10/20/20 10/21/20 10/22/20 23:59 23:59 23:59 Intake Total 5241.88 / 5241.88 243 / 243 Balance 5241.88 / 5241.88 243 / 243 Lab / Micro Data Result Diagrams: 10/22/20 03:16 10/22/20 03:16 Labs: Laboratory Results - last 24 hr 10/21/20 10/21/20 10/21/20 09:12 11:45 14:49 WBC RBC Hgb Hct MCV MCH MCHC RDW Std Deviation RDW Coeff of Cedric Plt Count MPV Immature Gran % (Auto) Neut % (Auto) Lymph % (Auto) [place] % (Auto) Eos % (Auto) Baso % (Auto) Absolute Neuts (auto) Absolute Lymphs (auto) Nucleated RBC % APTT 44.5 H 51.0 H Sodium Potassium Chloride Carbon Dioxide Anion Gap BUN Creatinine Estim Creat Clear Calc Est GFR (MDRD) Af Amer Est GFR (MDRD) Non-Af BUN/Creatinine Ratio Glucose Calcium POC Glucose 186 H 10/21/20 10/21/20 10/21/20 16:43 21:09 21:10 WBC RBC Hgb Hct MCV MCH MCHC RDW Std Deviation RDW Coeff of Cedric Plt Count MPV Immature Gran % (Auto) Neut % (Auto) Lymph % (Auto) [place] % (Auto) Eos % (Auto) Baso % (Auto) Absolute Neuts (auto) Absolute Lymphs (auto) Nucleated RBC % APTT 61.0 H Sodium Potassium Chloride Carbon Dioxide Anion Gap BUN Creatinine Estim Creat Clear Calc Est GFR (MDRD) Af Amer Est GFR (MDRD) Non-Af BUN/Creatinine Ratio Glucose Calcium POC Glucose 98 129 H 10/22/20 10/22/20 10/22/20 03:16 03:16 03:16 WBC 12.5 H RBC 4.84 Hgb 13.8 Hct 43.2 MCV 89.3 MCH 28.5 MCHC 31.9 L RDW Std Deviation 43.3 RDW Coeff of Cedric 13.2 Plt Count 206 MPV 9.4 Immature Gran % (Auto) 0.500 Neut % (Auto) 80.8 H Lymph % (Auto) 12.4 L [place] % (Auto) 4.1 Eos % (Auto) 1.8 Baso % (Auto) 0.4 Absolute Neuts (auto) 10.1 H Absolute Lymphs (auto) 1.55 Nucleated RBC % 0 APTT 76.1 H Sodium 135 L Potassium 4.0 Chloride 98 Carbon Dioxide 33.0 H Anion Gap 4 L BUN 11 Creatinine 0.89 Estim Creat Clear Calc 93.25 Est GFR (MDRD) Af Amer 111 Est GFR (MDRD) Non-Af 92 BUN/Creatinine Ratio 12.4 Glucose 153 H Calcium 9.0 POC Glucose 10/22/20 06:45 WBC RBC Hgb Hct MCV MCH MCHC RDW Std Deviation RDW Coeff of Cedric Plt Count MPV Immature Gran % (Auto) Neut % (Auto) Lymph % (Auto) [place] % (Auto) Eos % (Auto) Baso % (Auto) Absolute Neuts (auto) Absolute Lymphs (auto) Nucleated RBC % APTT Sodium Potassium Chloride Carbon Dioxide Anion Gap BUN Creatinine Estim Creat Clear Calc Est GFR (MDRD) Af Amer Est GFR (MDRD) Non-Af BUN/Creatinine Ratio Glucose Calcium POC Glucose 143 H Cardiology Labs/Tests 10/21/20 09:12: APTT 44.5 H 10/21/20 14:49: APTT 51.0 H 10/21/20 21:10: APTT 61.0 H 10/22/20 03:16: WBC 12.5 H, RBC 4.84, Hgb 13.8, Hct 43.2, MCV 89.3, MCH 28.5, MCHC 31.9 L, Plt Count 206, MPV 9.4, Immature Gran % (Auto) 0.500, Neut % (Auto) 80.8 H, Lymph % (Auto) 12.4 L, [place] % (Auto) 4.1, Eos % (Auto) 1.8, Baso % (Auto) 0.4, Absolute Neuts (auto) 10.1 H, Nucleated RBC % 0 10/22/20 03:16: Sodium 135 L, Potassium 4.0, Chloride 98, Carbon Dioxide 33.0 H, Anion Gap 4 L, BUN 11, Creatinine 0.89, Est GFR (MDRD) Af Amer 111, Est GFR (MDRD) Non-Af 92, BUN/Creatinine Ratio 12.4, Glucose 153 H, Calcium 9.0 10/22/20 03:16: APTT 76.1 H Rhythm: EKG: ECHO: Stress Test: Cardiac Cath: PCI: CT Surgery: Holter monitor: EPS: PPM: CXR: Chest CT Scan: Physical Exam Const oriented x3 and healthy appearing Orientation / Consciousness: awake HEENT normocephalic Eyes PERRL and conjunctivae normal Neck supple, no JVD and no carotid bruits Chest inspection of chest normal Resp normal respiratory effort and clear to auscultation bilaterally Cardio Palpation: normal PMI Rate: regular rate Rhythm: regular rhythm Heart Sounds: S1 normal and S2 normal Peripheral Pulses: pulses 2+ throughout GI normal to inspection, nondistended, normoactive bowel sounds Extremity normal to inspection and no clubbing, cyanosis or edema Psych mental status grossly normal Assessment & Plan Assessment/Plan (1) Non-ST elevated myocardial infarction: PLAN: Patient presents with a non-ST elevation myocardial infarction and is noted to have high-grade left circumflex artery disease, moderately severe left anterior descending artery disease, and moderate right coronary artery disease. His ejection fraction is preserved. Would consider high risk multivessel angioplasty with fixing the culprit lesion at this time versus considering coronary artery bypass surgery. After discussing with stockroom supervisor it would be preferable to pursue coronary artery bypass surgery. Arrangements will be made to transfer the patient to a tertiary care center. (2) History of coronary artery stent placement: PLAN: Patient has a history of previous right coronary artery stenting. . There is however moderately severe stenosis noted in this area. (3) Essential hypertension: PLAN: He does have a history of hypertension. His intra-arterial blood pressure appears to be well controlled. Would suggest continuing the hydrochlorothiazide. Continue carvedilol , Continue amlodipine but would increase dose to 10 mg a day Continue lisinopril 20 mg twice a day Thank you for allowing me to participate in the care of your patient. Please don't hesitate to call if any issues arise.
--- NOTE | 2020-10-22 08:54 | CL.D_ITS ---
Patient Name: RUMA COKER Study Date: 10/22/2020 Performing: Ti Ferreira MD Ht: 72.04 inches 183 cm : 1955 Wt: 365.97 lbs 166 kg Age: 65 Gender: male BSA: 2.76 PROCEDURE(S) PERFORMED [id number]/COR/LV CLINICAL PROFILE AND INDICATIONS Indications: Suspected CAD Heart Failure: None Stress/Imaging Stress/Image Study Performed: No CAD Presentations: Unstable angina. CONCLUSIONS Triple-vessel disease with preserved left ventricular ejection fraction RECOMMENDATIONS Would consider multivessel PCI versus coronary artery bypass surgery DESCRIPTION OF PROCEDURE The patient arrived to the procedure lab. The risks and benefits of the procedure as well as a full d escription of our services here and current unavailability of surgical backup were fully explained to the patient and/or their significant other prior to the catheterization. The Timeout was completed, verifying the correct patient and procedure. The patient's procedural site was prepped and draped in the usual fashion. Local anesthetic was given subcutaneously to right radial region with Lidocaine 2% . Using a modified Seldinger technique, arterial access was obtained via the right radial artery, a 6 Fr sheath was inserted. Left Coronary Artery selective angiography was performed in multiple views u sing a 5 Fr. 4.0 [place] catheter. Right Coronary Artery selective angiography was then performed in mu ltiple views using a 5 Fr. 4.0 [place] catheter. Left Coronary Artery selective angiography was perform ed in multiple views using a 5 Fr. 4.0 [place] catheter. Right Coronary Artery selective angiography was then performed in multiple views using a 5 Fr. JR 5 catheter. Left Ventriculography w as performed in PARTIDA projection using a 5 Fr. Pigtail catheter. LV to AO pullback pressures were then recorded. CORONARY ANGIOGRAPHY DOMINANCE: Right Dominant LEFT HEART ASSESSMENT Left Ventricular Ejection Fraction: by LV Gram 60 % Normal LV wall motion Normal Left Ventricular systolic function LEFT MAIN: Mild calcification, No significant disease noted LEFT ANTERIOR DESCENDING ARTERY: PROX LAD: Long proximal 70 to 80% stenosis CIRCUMFLEX ARTERY: Mild luminal irregularities MID CIRC: 90 % Stenosis RIGHT CORONARY ARTERY: Large aberrant vessel from the right ventricular branch coursing over to the a babita of the sinoatrial node PROX RCA: Proximal 70% stenosis with post stenotic dilatation and diffuse distal disease COMPLICATIONS PROCEDURE MEDICATIONS Fentanyl 50 mcg IV Versed 1 mg IV Oxygen: 2 L/min via nasal cannula Oxygen: 4 L/min via nasal cannula Heparin given IA 10/22/2020 08:27:32 Verapamil 2.5mg, Ntg 100mcgs, 3000 units of Heparin given IA 10/22/2020 08:27:32 SUMMARY OF HEMODYNAMIC DATA Time AIR REST ECG 07:53:23 AO 117/77 (96) SA 08:29:29 LV 133/17, 27 08:45:51 LV 132/11, 26 08:45:58 LV 129/20, 28 08:46:43 LVp 128/16, 28 08:46:46 AOp 128/77 (103) 08:46:51 Signed By Ti Ferreira MD On 10/22/2020 8:53:29 AM Ti Ferreira MD
--- NOTE | 2020-10-22 09:17 | CASEMGMT ---
According to the [facility] website, the following are in-network tertiary facilities: [facility], [place], [facility], [facility], [facility], [facility], [place], [facility], and . Bahman RODRÍGUEZ CM
[2020-10-22] MEDS: 0.9% Normal Saline 1,000 ML 75 ML IV (09:30)
--- NOTE | 2020-10-22 10:09 | NURSING ---
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 Pt's HOB elevated in bed. Pt placed on 4L N/C at this time. Pt c/o increased SOB.
--- NOTE | 2020-10-22 10:15 | DS.PCM_ITS ---
Documented by User: Riddhi Blancas NP, [employer] 10/22/20 10:28 Providers Date of Admission: 10/20/20 Date of Discharge: 10/22/20 Primary Care Physician: Dr. Ti Ferreira MD Consultations 10/20/20 19:08 Consult: Cardiology Routine Consulting Provider: Avinash Duarte Reason for Consult: NSTEMI EMERGENT Consult: No MD Notified: Yes Date Notified:: 10/21/20 Time Notified: 07:43 Method of Notification: Text Reason For Visit: NSTEMI Diagnosis Discharge Diagnosis (1) Non-ST elevated myocardial infarction: Status: Acute Code(s): I21.4 - Non-ST elevation (NSTEMI) myocardial infarction (2) History of coronary artery stent placement: Status: Resolved Code(s): Z95.5 - Presence of coronary angioplasty implant and graft (3) Essential hypertension: Status: Chronic Code(s): I10 - Essential (primary) hypertension Medications at Discharge Home Medications aspirin 81 mg tablet,delayed release 81 mg PO QDAY 05/19/17 metformin 500 mg tablet See Rx Instructions PO TID #150 tab 12/07/17 blood sugar diagnostic #180 ea 08/23/18 blood-glucose meter #1 ea 08/23/18 lancets 30 gauge #180 ea 08/23/18 albuterol sulfate 90 mcg/actuation aerosol inhaler 2 puff INHALATION Q4H PRN gm 08/20/20 amlodipine 5 mg tablet 5 mg PO DAILY #90 tab 08/20/20 carvedilol 25 mg tablet 25 mg PO BID #180 tab 08/20/20 clopidogrel 75 mg tablet 75 mg PO DAILY #90 tab 08/20/20 coenzyme Q10 100 mg capsule 200 mg PO PRN PRN cap 08/20/20 dulaglutide 0.75 mg/0.5 mL subcutaneous pen injector 0.75 mg SC QWEEK ml 08/20/20 enalapril maleate 20 mg tablet 20 mg PO BID #180 tab 08/20/20 glimepiride 2 mg tablet 4 mg PO BIDWMEAL tablet 08/20/20 hydrochlorothiazide 25 mg tablet 25 mg PO QDAY #90 tab 08/20/20 nitroglycerin 0.4 mg sublingual tablet 0.4 mg SUBLINGUAL Q5-15M PRN #25 tab 08/20/20 rosuvastatin 10 mg tablet 10 mg PO DAILY #90 tab 08/20/20 Hospital Course Operations None Procedures Cardiac catheterization Summary of Care Provided Minutes Spent on Discharge: 35 Hospital Course: Patient is a 65-year-old male admitted 10/20/2020 due to chest pain and dyspnea on exertion. 1. NSTEMI-Cardiology consulted. Patient underwent cardiac catheterization which demonstrated high-grade left circumflex artery disease, moderately severe left anterior descending artery disease and moderate right coronary artery disease. Cardiology recommending transfer to tertiary center for evaluation for CABG. Transferred to [facility] for ongoing evaluation and management. 2. CAD with history of PCI-on aspirin, statin, Plavix, beta-tenisha. 3. Type 2 diabetes mellitus-oral regimen on hold. Continue Accu-Cheks with sliding scale insulin. 4. Hypertension-stable, continue enalapril, carvedilol, HCTZ, amlodipine. 5. Hyperlipidemia-continue statin. 6. Morbid obesity-encouraged diet and lifestyle modifications. 7. Suspected COURTNEY-recommend outpatient PSG. Physical Exam Const alert, oriented x3 and no apparent distress Orientation / Consciousness: awake, oriented to person, oriented to place and oriented to time HEENT normocephalic and moist oral mucous membranes Eyes PERRL, EOMs intact bilaterally and conjunctivae normal Neck no lymphadenopathy Resp normal respiratory effort and clear to auscultation bilaterally Cardio regular rate, regular rhythm and no murmurs Peripheral Pulses: pulses 2+ throughout GI normal to inspection, nondistended, normoactive bowel sounds, non-tender and non-distended Extremity normal to inspection Skin no rashes or lesions noted Lesions: no lesions Rashes: no rashes Trauma: no lacerations or abrasions Neuro CN's II-XII intact bilaterally, no focal motor deficits, no sensory deficits noted and deep tendon reflexes 2+ bilaterally Psych mental status grossly normal and affect normal Patient seen and examined prior to discharge. Physical assessment as noted above. Transfer to tertiary facility as noted above. This patient was seen by KERA Canela under the supervision of Dr. Rodriguez. ABG / Lab / Microbiology Data Result Diagrams: 10/22/20 03:16 10/22/20 03:16 Laboratory: Laboratory Results - last 24 hr 10/21/20 10/21/20 10/21/20 11:45 14:49 16:43 WBC RBC Hgb Hct MCV MCH MCHC RDW Std Deviation RDW Coeff of Cedric Plt Count MPV Immature Gran % (Auto) Neut % (Auto) Lymph % (Auto) [place] % (Auto) Eos % (Auto) Baso % (Auto) Absolute Neuts (auto) Absolute Lymphs (auto) Nucleated RBC % APTT 51.0 H Sodium Potassium Chloride Carbon Dioxide Anion Gap BUN Creatinine Estim Creat Clear Calc Est GFR (MDRD) Af Amer Est GFR (MDRD) Non-Af BUN/Creatinine Ratio Glucose Calcium POC Glucose 186 H 98 10/21/20 10/21/20 10/22/20 21:09 21:10 03:16 WBC 12.5 H RBC 4.84 Hgb 13.8 Hct 43.2 MCV 89.3 MCH 28.5 MCHC 31.9 L RDW Std Deviation 43.3 RDW Coeff of Cedric 13.2 Plt Count 206 MPV 9.4 Immature Gran % (Auto) 0.500 Neut % (Auto) 80.8 H Lymph % (Auto) 12.4 L [place] % (Auto) 4.1 Eos % (Auto) 1.8 Baso % (Auto) 0.4 Absolute Neuts (auto) 10.1 H Absolute Lymphs (auto) 1.55 Nucleated RBC % 0 APTT 61.0 H Sodium Potassium Chloride Carbon Dioxide Anion Gap BUN Creatinine Estim Creat Clear Calc Est GFR (MDRD) Af Amer Est GFR (MDRD) Non-Af BUN/Creatinine Ratio Glucose Calcium POC Glucose 129 H 10/22/20 10/22/20 10/22/20 03:16 03:16 06:45 WBC RBC Hgb Hct MCV MCH MCHC RDW Std Deviation RDW Coeff of Cedric Plt Count MPV Immature Gran % (Auto) Neut % (Auto) Lymph % (Auto) [place] % (Auto) Eos % (Auto) Baso % (Auto) Absolute Neuts (auto) Absolute Lymphs (auto) Nucleated RBC % APTT 76.1 H Sodium 135 L Potassium 4.0 Chloride 98 Carbon Dioxide 33.0 H Anion Gap 4 L BUN 11 Creatinine 0.89 Estim Creat Clear Calc 93.25 Est GFR (MDRD) Af Amer 111 Est GFR (MDRD) Non-Af 92 BUN/Creatinine Ratio 12.4 Glucose 153 H Calcium 9.0 POC Glucose 143 H Meaningful Use Info Meaningful Use Diagnoses (Choose all that apply): AMI AMI/Post PCI/Angioplasty Aspirin given w/in 24hrs of arrival?: Yes ASA at discharge?: Yes Antiplatelet Therapy at Discharge:: Yes Statins at discharge?: Yes Juancarlos/ARB at discharge?: Yes Beta Tenisha at discharge?: Yes Done w/ Acute SD measure.: Yes Discharge Plan Admission Admit Date/Time: 10/20/20 19:08 Primary Reason for Your Visit: Chest Pain Attending Provider: aCrmencita Rodriguez Primary Care Provider: Ti Ferreira Consulting Providers: Avinash Duarte Discharge Orders/Prescriptions Prescriptions: No Action aspirin [Adult Low Dose Aspirin] 81 mg tablet,delayed release (DR/EC) 81 mg PO QDAY RF: 0 coenzyme Q10 [Co Q-10] 100 mg capsule 200 mg PO PRN PRN (Reason: general health) RF: 0 albuterol sulfate 90 mcg/actuation HFA aerosol inhaler 2 puff INHALATION Q4H PRN (Reason: Wheezing) RF: 0 dulaglutide 0.75 mg/0.5 mL pen injector 0.75 mg SC QWEEK RF: 0 glimepiride 2 mg tablet 4 mg PO BIDWMEAL RF: 0 amlodipine 5 mg tablet 5 mg PO DAILY Qty: 90 RF: 3 carvedilol [Coreg] 25 mg tablet 25 mg PO BID Qty: 180 RF: 3 clopidogrel 75 mg tablet 75 mg PO DAILY Qty: 90 RF: 3 enalapril maleate 20 mg tablet 20 mg PO BID Qty: 180 RF: 3 rosuvastatin [Crestor] 10 mg tablet 10 mg PO DAILY Qty: 90 RF: 3 hydrochlorothiazide 25 mg tablet 25 mg PO QDAY Qty: 90 RF: 3 nitroglycerin 0.4 mg tablet, sublingual 0.4 mg SUBLINGUAL Q5-15M PRN (Reason: chest pain) Qty: 25 RF: 6 metformin 500 mg tablet See Rx Instructions PO TID Qty: 150 RF: 11 (DME) Blood Glucose Test strip See Dose Instructions .ROUTE .MEDSUPPLY Qty: 180 RF: 5 (DME) blood-glucose meter misc See Dose Instructions .ROUTE .MEDSUPPLY Qty: 1 RF: 0 (DME) lancets 30 gauge misc See Dose Instructions .ROUTE .MEDSUPPLY Qty: 180 RF: 5 Referrals / Follow Up: Ti Ferreira MD [Primary Care Provider] - Disposition Disposition (needs filled in before D/C Order can be placed): Acute Care [facility] Documented by User: Dr. Carmencita Rodriguez DO 10/22/20 14:18 Providers Date of Admission: 10/20/20 Reason For Visit: NSTEMI Diagnosis Discharge Diagnosis (1) Essential hypertension: Status: Chronic Code(s): I10 - Essential (primary) hypertension (2) DM type 2 (diabetes mellitus, type 2): Status: Chronic Code(s): E11.9 - Type 2 diabetes mellitus without complications Qualifiers: Diabetes mellitus predatory animal exterminator insulin use: without predatory animal exterminator use Diabetes mellitus complication status: with unspecified complications Qualified Code(s): E11.8 - Type 2 diabetes mellitus with unspecified complications (3) Morbid obesity: Status: Acute Code(s): E66.01 - Morbid (severe) obesity due to excess calories (4) Pure hypercholesterolemia: Status: Chronic Code(s): E78.00 - Pure hypercholesterolemia, unspecified Medications at Discharge Home Medications aspirin 81 mg tablet,delayed release 81 mg PO QDAY 05/19/17 metformin 500 mg tablet See Rx Instructions PO TID #150 tab 12/07/17 blood sugar diagnostic #180 ea 08/23/18 blood-glucose meter #1 ea 08/23/18 lancets 30 gauge #180 ea 08/23/18 albuterol sulfate 90 mcg/actuation aerosol inhaler 2 puff INHALATION Q4H PRN gm 08/20/20 amlodipine 5 mg tablet 5 mg PO DAILY #90 tab 08/20/20 carvedilol 25 mg tablet 25 mg PO BID #180 tab 08/20/20 clopidogrel 75 mg tablet 75 mg PO DAILY #90 tab 08/20/20 coenzyme Q10 100 mg capsule 200 mg PO PRN PRN cap 08/20/20 dulaglutide 0.75 mg/0.5 mL subcutaneous pen injector 0.75 mg SC QWEEK ml 08/20/20 enalapril maleate 20 mg tablet 20 mg PO BID #180 tab 08/20/20 glimepiride 2 mg tablet 4 mg PO BIDWMEAL tablet 08/20/20 hydrochlorothiazide 25 mg tablet 25 mg PO QDAY #90 tab 08/20/20 nitroglycerin 0.4 mg sublingual tablet 0.4 mg SUBLINGUAL Q5-15M PRN #25 tab 08/20/20 rosuvastatin 10 mg tablet 10 mg PO DAILY #90 tab 08/20/20 Hospital Course Operations None Procedures Cardiac catheterization Summary of Care Provided Minutes Spent on Discharge: 39 Hospital Course: I agree with the above and the following is representation of my independent history and physical examination. RUMA COKER, is a 65 M who presented to the emergency department at [facility] on 10/20/2020 with the chief complaint of chest discomfort.? The patient reported on admission that he felt like he was having indigestion as he did recently eat a lot of jalapenos.? He also complained of bilateral aching in his arms and felt mildly shortness of breath but denied any nausea, vomiting, or diaphoresis.? He reported he had similar episodes the weekend prior to admission.? He had a stent placed approximately 9 years ago and indicates that he had other noted areas of atherosclerosis that were nonintervenable at the time.? His indicated as well on admission that he snores and does stop breathing but has never been diagnosed with obstructive sleep apnea.? He has a history of hypertension, hyperlipidemia, and type 2 diabetes.? In the emergency department he was noted to be hypertensive but other vital signs were stable.? Blood pressure was 168/74 at admission.? His CBC showed a mildly elevated white count at 12.1.? His D-dimer was mildly elevated at 0.51 but when age corrected is negative.? His CMP shows an elevated serum bicarbonate but this appears to be at baseline, and elevated glucose at 154.? His initial troponin was elevated at 0.483 and trended up to 0.790. He is EKG shows a chronic right bundle branch block but had no signs of acute ST-T wave changes.? In the emergency department he was loaded with aspirin and started on a heparin drip. He was admitted to telemetry floor and evaluated by cardiology. The decision was made to take the patient to the Certified Nurse Operating Room and this was done on 10/22/2020. C showed severe triple-vessel disease with a preserved ejection fraction. Dr. Ferreira discussed the case with cardiovascular surgeon at [facility], Dr. Ibarra, and he has accepted the patient for transfer. The patient was discharged in stable condition. Physical Exam Const alert, oriented x3, no apparent distress and well nourished Constitutional Narrative: Morbidly obese white male sitting up in bed watching television, appears comfortable General Appearance: cooperative and comfortable Orientation / Consciousness: awake, oriented to person, oriented to place and oriented to time Exam Limitations: no limitations Nutritional Appearance: morbidly obese HEENT normocephalic, head/scalp atraumatic, hearing grossly normal bilaterally, moist oral mucous membranes, oropharynx normal and gingiva normal Mouth: oral and palatal mucosa normal Eyes PERRL, EOMs intact bilaterally and conjunctivae normal Neck no lymphadenopathy, supple, no JVD and no carotid bruits Resp normal respiratory effort, no retractions and no use of accessory muscles Resp Narrative: Diffusely diminished, exam limited secondary to body habitus Cardio regular rate, regular rhythm, S1 normal heart sound, S2 normal heart sound, no murmurs, no rub, no gallops, no clicks and no JVD GI normal to inspection, nondistended, normoactive bowel sounds, soft to palpation, non-tender and non-distended Extremity normal to inspection, full ROM and no clubbing, cyanosis or edema Skin no rashes or lesions noted and no wounds Neuro oriented x3, CN's II-XII intact bilaterally and moves all extremities Sensorium / Orientation: awake, alert, oriented to person, oriented to place and oriented to time Motor Exam: strength 5/5 throughout Psych affect normal ABG / Lab / Microbiology Data Result Diagrams: 10/22/20 03:16 10/22/20 03:16 Discharge Plan Admission Admit Date/Time: 10/20/20 19:08 Primary Reason for Your Visit: Chest Pain Attending Provider: Carmencita Rodriguez Primary Care Provider: Ti Ferreira Consulting Providers: Avinash Duarte Discharge Orders/Prescriptions Prescriptions: No Action aspirin [Adult Low Dose Aspirin] 81 mg tablet,delayed release (DR/EC) 81 mg PO QDAY RF: 0 coenzyme Q10 [Co Q-10] 100 mg capsule 200 mg PO PRN PRN (Reason: general health) RF: 0 albuterol sulfate 90 mcg/actuation HFA aerosol inhaler 2 puff INHALATION Q4H PRN (Reason: Wheezing) RF: 0 dulaglutide 0.75 mg/0.5 mL pen injector 0.75 mg SC QWEEK RF: 0 glimepiride 2 mg tablet 4 mg PO BIDWMEAL RF: 0 amlodipine 5 mg tablet 5 mg PO DAILY Qty: 90 RF: 3 carvedilol [Coreg] 25 mg tablet 25 mg PO BID Qty: 180 RF: 3 clopidogrel 75 mg tablet 75 mg PO DAILY Qty: 90 RF: 3 enalapril maleate 20 mg tablet 20 mg PO BID Qty: 180 RF: 3 rosuvastatin [Crestor] 10 mg tablet 10 mg PO DAILY Qty: 90 RF: 3 hydrochlorothiazide 25 mg tablet 25 mg PO QDAY Qty: 90 RF: 3 nitroglycerin 0.4 mg tablet, sublingual 0.4 mg SUBLINGUAL Q5-15M PRN (Reason: chest pain) Qty: 25 RF: 6 metformin 500 mg tablet See Rx Instructions PO TID Qty: 150 RF: 11 (DME) Blood Glucose Test strip See Dose Instructions .ROUTE .MEDSUPPLY Qty: 180 RF: 5 (DME) blood-glucose meter misc See Dose Instructions .ROUTE .MEDSUPPLY Qty: 1 RF: 0 (DME) lancets 30 gauge misc See Dose Instructions .ROUTE .MEDSUPPLY Qty: 180 RF: 5 Referrals / Follow Up: Ti Ferreira MD [Primary Care Provider] - Disposition Disposition (needs filled in before D/C Order can be placed): Acute Care Hospital Visit Charges Inpatient E&M: 49460 Disch Hosp
[2020-10-22] MEDS: Furosemide 40 MG/4 ML Vial IV (10:40)
--- NOTE | 2020-10-22 10:56 | PHA.DC.MR ---
Pharmacy Service has performed discharge medication reconciliation for this patient. The patient's discharge medication list was reviewed for discrepancies and discrepancies were resolved. Home Medications aspirin 81 mg tablet,delayed release 81 mg PO QDAY 05/19/17 metformin 500 mg tablet See Rx Instructions PO TID #150 tab 12/07/17 blood sugar diagnostic #180 ea 08/23/18 blood-glucose meter #1 ea 08/23/18 lancets 30 gauge #180 ea 08/23/18 albuterol sulfate 90 mcg/actuation aerosol inhaler 2 puff INHALATION Q4H PRN gm 08/20/20 amlodipine 5 mg tablet 5 mg PO DAILY #90 tab 08/20/20 carvedilol 25 mg tablet 25 mg PO BID #180 tab 08/20/20 clopidogrel 75 mg tablet 75 mg PO DAILY #90 tab 08/20/20 coenzyme Q10 100 mg capsule 200 mg PO PRN PRN cap 08/20/20 dulaglutide 0.75 mg/0.5 mL subcutaneous pen injector 0.75 mg SC QWEEK ml 08/20/20 enalapril maleate 20 mg tablet 20 mg PO BID #180 tab 08/20/20 glimepiride 2 mg tablet 4 mg PO BIDWMEAL tablet 08/20/20 hydrochlorothiazide 25 mg tablet 25 mg PO QDAY #90 tab 08/20/20 nitroglycerin 0.4 mg sublingual tablet 0.4 mg SUBLINGUAL Q5-15M PRN #25 tab 08/20/20 rosuvastatin 10 mg tablet 10 mg PO DAILY #90 tab 08/20/20
[2020-10-22 11:25] LABS: Bedside Glucose 163 mg/dL (70-110)
[2020-10-22] MEDS: Insulin Lispro 100 UNIT/ML INSULN.PEN SC (11:34)
[2020-10-22] MEDS: Ondansetron 4 MG/2 ML Vial IV (15:30)
[2020-10-22 17:05] LABS: Bedside Glucose 167 mg/dL (70-110)
--- NOTE | 2020-10-22 17:19 | EKG12_ITS ---
Test Reason : CP ADMISSION Blood Pressure : / mmHG Vent. Rate : 072 BPM Atrial Rate : 072 BPM P-R Int : 210 ms QRS Dur : 138 ms QT Int : 436 ms P-R-T Axes : 076 093 031 degrees QTc Int : 477 ms Sinus rhythm with 1st degree A-V block Right bundle branch block Abnormal ECG Confirmed by SAMPSON RIVER, OG ([id number]), image editor VERONICA ZAMORA ([id number]) on 10/24/2020 9:54:03 AM Referred By: Carmencita Rodriguez Confirmed By:OG BRADEN MD
[2020-10-22] MEDS: proCHLORPERazine 10 MG/2 ML Vial IV (18:05)
--- NOTE | 2020-10-22 19:27 | NURSING ---
Called report to [facility], spoke with Rubina. Pt to go to [address] [place] [address], [address]. Transport to be here within the half hour.
== END 2020-10-22 20:00 | disposition short-term general hospital (02) | DRG 282 ==
LOC: ED 18:51 → PCU 19:41
PROVIDERS: Internal Medicine; Nurse Practitioner Family; Admitting Provider Internal Medicine; Emergency Provider Emergency Medicine; PCP Internal Medicine Cardiovascular Disease; Referring Provider Internal Medicine; Visit Provider Internal Medicine
DX: I21.4 Non-ST elevation (NSTEMI) myocardial infarction (principal); E11.65 Type 2 diabetes mellitus with hyperglycemia; J44.9 Chronic obstructive pulmonary disease, unspecified; I25.110 Atherosclerotic heart disease of native coronary artery with unstable angina pectoris; E66.01 Morbid (severe) obesity due to excess calories; I10 Essential (primary) hypertension; E78.5 Hyperlipidemia, unspecified; G47.33 Obstructive sleep apnea (adult) (pediatric); I25.2 Old myocardial infarction; Z79.82 Long term (current) use of aspirin; Z79.84 Long term (current) use of oral hypoglycemic drugs; Z79.899 Other long term (current) drug therapy; Z87.891 Personal history of nicotine dependence; Z95.5 Presence of coronary angioplasty implant and graft
CPT/HCPCS: 36415; 71045; 80048; 80053; 80061; 82962; 83036; 83735; 84100; 84443; 84484; 85025; 85379; 85730; 93005; 93306; 93458; 94640; 99152; 99153; 99251; 99285; J7030; Q9957; Q9967; A4216; C1769; C1894; C8929; G0463; J1940; J2405; J3490

== ENCOUNTER 2022-04-25 10:27 | Inpatient (IN) | payer OTHER, SELFPAY ==
[2022-04-25] VITALS (14 sets, daily range): BP systolic 97–157; BP diastolic 60–89; PULSE 70–88; RESP 18–22; TEMP 36.3–36.7; O2SAT 91–97; BMI 52.1
--- NOTE | 2022-04-25 09:39 | ECHOCS_ITS ---
Reason For Study: Dyspnea/SOB Procedure This was a 2D Doppler, Color Flow transthoracic echocardiogram. The study was technically difficult. Contrast injection was performed. Exam performed portable in patient room. Left Ventricle Normal LV size. Left ventricular systolic function is normal. The estimated ejection fraction is 55 %. No regional wall motion abnormalities noted. Right Ventricle Normal RV size. Normal systolic function. Atria Normal left atrium. Normal right atrium. Mitral Valve Mitral valve not well visualized. Tricuspid Valve The tricuspid valve is not well visualized. Pericardium/Pleural No pericardial effusion. Medication Diluted definity 2.5ml given slow IV push to enhance endocardial definition. MMode/2D Measurements & Calculations LVIDd: 4.9 cm IVSd: 1.7 cm LVOT diam: 2.0 cm LVIDs: 3.1 cm LVPWd: 1.6 cm LVOT area: 3.2 cm2 RVDd: 5.4 cm FS: 38.1 % Ao root diam: 4.0 cm LAV(MOD-bp): 56.2 ml LA dimension: 4.0 cm LA A4 area: 21.6 cm2 LAV(MOD-bp) Indexed: 20.0 ml/m2 LAV(MOD-sp2): 40.0 ml LAV(MOD-sp4): 68.6 ml RA A4 area: 24.2 cm2 Time Measurements MV dec time: 0.17 sec Doppler Measurements & Calculations MV E max brett: 112.8 cm/sec Lat Peak E' Brett: 10.0 cm/sec Med Peak E' Brett: 6.9 cm/sec MV A max brett: 86.9 cm/sec E/E' lat: 11.3 E/E' med: 16.4 MV E/A: 1.3 MV V2 max: 140.8 cm/sec MV P1/2t max brett: 141.8 cm/sec Ao V2 max: 195.4 cm/sec MV max P.9 mmHg MV P1/2t: 63.6 msec Ao max P.3 mmHg MV V2 mean: 76.2 cm/sec Ao V2 mean: 121.2 cm/sec MV mean P.7 mmHg MV dec slope: 652.7 cm/sec2 Ao mean P.0 mmHg MV V2 VTI: 36.7 cm MVA(P1/2t): 3.5 cm2 Ao V2 VTI: 37.3 cm MVA(VTI): 2.3 cm2 DANIELLA(I,D): 2.3 cm2 DANIELLA(V,D): 2.0 cm2 LV V1 max: 122.6 cm/sec SV(LVOT): 84.2 ml PA V2 max: 98.5 cm/sec LV V1 max P.0 mmHg LV V1 mean P.8 mmHg LV V1 mean: 76.9 cm/sec LV V1 VTI: 26.6 cm ECHO/Echo Complete W/ Contrast Interpretation Summary Normal LV size. Left ventricular systolic function is normal. The estimated ejection fraction is 55 %. Contrast injection was performed. The study was technically limited. The study was technically difficult. Ordering Physician: Olimpia Ortiz Performed By: Deepak Aaron RCS
--- NOTE | 2022-04-25 09:44 | HP.PCM.HOS_ITS ---
HPI - General General Date of Admission: 04/25/22 Date of Service: 04/25/22 Chief Complaint: SOB HPI Narrative RUMA COKER, is a 66 M who presents with the above. Patient stated that he has been have been shortness of breath since he got COVID in November 2021 however in the last couple of weeks, his shortness of breath has gotten worse. He is typically on 4 L of oxygen at baseline. He felt very short of breath yesterday and went to [place] [facility]. Patient has past medical history of CAD status post stents to the RCA in 2011, status post stent to his left circumflex and LAD in 2020, hypertension, hyperlipidemia, chronic hypoxic respiratory failure on 4 L of oxygen, type II DM. Patient denied any chest pain or dizziness or palpitations. He admits to orthopnea with 2 pillows, denies PND, admits to bilateral leg swelling and weight gain. He denied any recent sick contacts. His drove him to [facility] yesterday in the afternoon. He was unable to get out of the car and the ED staff help him out. In the emergency room, his blood pressure was 141/75, heart rate was 74, respiratory rate 18, he was saturating 64% on room air improved to 76% on 5 L of oxygen, then transition to BiPAP and later saturating 97% on BiPAP 50% FiO2. His rapid COVID-19 PCR, influenza, RSV was negative. His CMP on 04/02/2022 showed sodium of 134, potassium 4.8, chloride 91, bicarb 36, high-sensitivity troponin was 22, proBNP was 1007. WBC count was 8.74, hemoglobin 13.2, platelet count 175, D-dimer was 1090, INR 1.2. CTA of the chest was negative for acute PE. It showed right greater than left small bilateral pleural effusions and bilateral lower lobe compressive atelectasis, bilateral multifocal interstitial and groundglass opacity secondary to either edema or infection, enlarged metastatic lymph node, reactive, cardiomegaly. Chest x-ray showed bilateral perihilar and bilateral diffuse hazy interstitial and mild patchy expiratory opacities. [facility] Medical History ACS (acute coronary syndrome) (10/20/20) Atherosclerosis of [place] coronary artery of [place] heart without angina pectoris COPD (chronic obstructive pulmonary disease) Coronary artery disease Diabetic neuropathy DM type 2 (diabetes mellitus, type 2) Dyspnea on exertion Essential hypertension History of non-ST elevation myocardial infarction (NSTEMI) (10/20/20) Obesity Pure hypercholesterolemia Home Medications aspirin 81 mg tablet,delayed release (Adult Low Dose Aspirin) 81 mg PO QDAY heart health 05/19/17 [History Last Taken 04/24/22 08:00] blood-glucose meter #1 ea 08/23/18 [Rx Last Taken Unknown] coenzyme Q10 100 mg capsule (Co Q-10) 200 mg PO PRN PRN general health 08/20/20 [History Last Taken Unknown] albuterol sulfate 90 mcg/actuation aerosol inhaler 2 puff inhalation Q4H PRN Wheezing #8.5 grams 07/01/21 [Rx Last Taken 04/24/22 22:00] blood sugar diagnostic (Blood Glucose Test strips) #200 ea 07/01/21 [Rx Last Taken Unknown] lancets 30 gauge #200 ea 07/01/21 [Rx Last Taken Unknown] enalapril maleate 20 mg tablet 20 mg PO BID #180 tabs 08/20/21 [Rx Last Taken 04/24/22 20:00] nitroglycerin 0.4 mg sublingual tablet 0.4 mg sublingual Q5-15M PRN chest pain #25 tabs 11/12/21 [Rx Last Taken Unknown] amlodipine 5 mg tablet 5 mg PO DAILY blood pressure 04/25/22 [History Last Taken Unknown] carvedilol 25 mg tablet (Coreg) 25 mg PO BID heart 04/25/22 [History Last Taken 04/24/22 20:00] clopidogrel 75 mg tablet 75 mg PO DAILY antiplatlet 04/25/22 [History Last Taken 04/24/22 08:00] glimepiride 4 mg tablet 4 mg PO BID diabetes 04/25/22 [History Last Taken 04/24/22 17:00] hydrochlorothiazide 25 mg tablet 25 mg PO QDAY diuretic 04/25/22 [History Last Taken 04/24/22 08:00] metformin 500 mg tablet 1,000 mg PO BID diabetes 04/25/22 [History Last Taken 04/24/22 17:00] rosuvastatin 20 mg tablet 20 mg PO DAILY lowers cholesterol 04/25/22 [History Last Taken 04/24/22 22:00] Allergy/AdvReac Type Severity Reaction Status Date / Time lovastatin Allergy Severe Unknown Verified 08/20/21 08:34 pravastatin Allergy Severe Unknown Verified 08/20/21 08:34 atorvastatin AdvReac Severe myalgias Verified 08/20/21 08:34 Family History Brother Diabetes Father COPD (chronic obstructive pulmonary disease) Surgical History H/O cardiac catheterization (10/22/20) History of coronary artery stent placement (11/01/20) Social History Smoking Status: Former smoker second hand exposure: No alcohol intake: never substance use type: does not use ROS ROS Narrative Constitutional: Denies: Anorexia, Chills, Fever, Night Sweats, Weight Change Eyes: Denies: Blurred vision, Cataracts, Conjunctivae Inflammation, Pain, Redness, Vision Change HEENT: Denies: Difficulty Hearing, Difficulty Swallowing, Head Aches, Hearing Changes, Sinus Congestion, Sinus Drainage Cardiovascular: See HPI Respiratory: See HPI Gastrointestinal: Denies: Abdominal Pain, Nausea, Vomiting Genitourinary: Denies: Dysuria Musculoskeletal: Denies: Joint Pain, Joint stiffness, Joint swelling, Joint Tenderness Skin: Denies: Rash, Wounds Neurological: Denies: Numbness, Tingling, Focal weakness Vital Signs Vital Signs Vital Signs: 04/25/22 09:25 04/25/22 09:27 04/25/22 09:32 Temperature 97.4 F L 97.4 F L Temperature Source Oral Oral Pulse Rate 82 82 Respiratory Rate 22 H 22 H Respiratory Effort Short of Breath Labored Respiratory Depth Normal Respiratory Pattern Tachypnea Blood Pressure 157/89 H 157/89 H Blood Pressure Mean 111 111 Blood Pressure Source Monitor Blood Pressure Position Sitting Blood Pressure Location Left Arm Pulse Ox 94 94 Oxygen Delivery Method Nasal Cannula Nasal Cannula Nasal Cannula Oxygen Flow Rate (L/min) 7 7 7 Weight Weight: 174.3 kg Body Mass Index (BMI) 52.1 Physical Exam Narrative Physical exam: General: Alert, Oriented x3, Cooperative, morbidly obese, on 7 L of oxygen HEENT: Atraumatic Oral: Moist Mucosa Neck: Supple Lungs: Diminished to auscultation, scattered wheezes Cardiovascular: HS I+II, regular, no murmurs Abdomen: Bowel Sounds Present, Soft, Non Tender Extremities: Bilateral leg edema +3-4, left anterior rodríguez had yellowish crusting Skin: No rashes, No breakdown Neurological: Grossly intact Psych/Mental Status: Appropriate Assessment & Plan Assessment/Plan (1) DM type 2 (diabetes mellitus, type 2): QUALIFIERS: Diabetes mellitus superintendent container terminal insulin use: without jail use Diabetes mellitus complication status: with unspecified complications Qualified Code(s): E11.8 - Type 2 diabetes mellitus with unspecified complications PLAN: Plan 1. Acute on chronic hypoxic respiratory failure secondary to acute exacerbation of CHF with preserved EF Patient is on 4 L of oxygen chronically; he was on BiPAP in the hospital, that has improved to 7 L of oxygen Acute PE ruled out with a negative CTA of the chest done in [place] Will continue CHF management, wean off oxygen for SPO2 more than 94% 2. Acute exacerbation heart failure with preserved EF, EF 60% Patient presented with a BNP of more than 1000; started on Lasix IV We will continue on Lasix 40 mg every 8h, CHF protocol Trend troponins, cardiology consult, repeat 2D echo 3. CAD status post stents,. The EKG is unchanged from previous, troponin is 22 in [place] Continue with aspirin, Plavix, statin, enalapril Will trend troponins 4. Type II DM, patient is on metformin and glimepiride We will continue to monitor blood sugars with insulin sliding scale with blood glucose checks 5. Hypertension, fairly controlled, Will hold hydrochlorothiazide, continue on enalapril, Coreg Patient should probably be off amlodipine on account of bilateral leg edema -we will monitor 6. Morbid obesity, BMI 52.1, lifestyle modification recommended 7. DVT prophylaxis?Lovenox BID 8. I discussed and explained in details the various types of CODE STATUS-full code, DNR CCA, DNR CC. Patient chose full code Time spent discussing CODE STATUS 16 minutes Charges/Coding Visit Charges Inpatient E&M: 55659 Init Hosp L3 Procedures Hospitalists Procedures: 97474 Advncd Care Plan 30 Min
--- NOTE | 2022-04-25 09:50 | EKG12_ITS ---
Test Reason : Blood Pressure : / mmHG Vent. Rate : 083 BPM Atrial Rate : 083 BPM P-R Int : 174 ms QRS Dur : 138 ms QT Int : 402 ms P-R-T Axes : 061 096 040 degrees QTc Int : 472 ms Normal sinus rhythm Right bundle branch block Abnormal ECG When compared with ECG of 22-OCT-2020 17:30, No significant change was found Confirmed by MISAEL RIVER, EUGENE ([id number]), multimedia editor VERONICA ZAMORA ([id number]) on 04/28/2022 11:27:01 AM Referred By: KENDRA Confirmed By:EUGENE DOUGLAS MD
[2022-04-25 10:48] LABS: Absolute Lymphocyte Count 0.38 X10^3/uL (0.83-4.51); Absolute Neutrophil Count 6.1 X10^3/uL (2.0-7.7); Basophil# 0.01 X10^3/uL; Basophil% 0.2 % (0-1); Hematocrit 45.5 % (40-54); Lymphocyte # 0.38 X10^3/ul (0.83-4.51); Lymphocyte % 5.8 % (19-41); Mean Corp Hgb Conc 30.8 g/dL (32-36); Mean Corpuscular Hgb 28.2 pg (27.0-32.0); Mean Corpuscular Volume 91.5 fL (80-94); Mean Platelet Vol. 9.1 fl (6.2-12.0); Monocyte# 0.12 X10^3/uL; Monocyte% 1.8 % (0-10); NRBC Flagged by Analyzer 0 % (0-5); Neutrophil # 6.05 X10^3/uL (2.7-7.7); Neutrophil % 91.6 % (47-70); POSITIVE DIFFERENTIAL YES; Platelet Count 185 K/mm3 (150-450); RBC Distribution Width CV 14.2 % (11.6-14.6); Red Blood Count 4.97 M/mm3 (4.6-6.2); White Blood Count 6.6 K/mm3 (4.4-11.0)
[2022-04-25 10:53] LABS: Differential Indicated SCAN CRITERIA MET
[2022-04-25] MEDS: Ipratropium/Albuterol Sulfate 3 ML AMPUL.NEB INHALATION ×3 (10:53→20:07)
[2022-04-25 11:03] LABS: BNP,B-Type NATRIURETIC PEPTIDE 175.8 pg/mL (0-100)
[2022-04-25 11:05] LABS: ALB/GLOB Ratio 0.6 RATIO (0.9-2.4); AST(SGOT) 9 U/L (15-37); Alanine Aminotransfer ALT/SGPT 17 U/L (16-61); Albumin, Serum 2.9 g/dL (3.2-5.0); Alkaline Phosphatase 55 U/L (45-117); Anion Gap 3 (5-15); BUN 17 mg/dL (7-18); BUN/Creat Ratio 22.3 RATIO (10-20); Calcium,Total 9.2 mg/dL (8.5-10.1); Chloride 93 mmol/L (98-107); Creatinine, Serum 0.76 mg/dL (0.70-1.30); EST Glomerular Filtration Rate 109 mL/min (>60); Est Glom Filt Rate - Afr Amer 132 mL/min (>60); Estimated Creatinine Clearance 107.78 ml/min; Globulin 4.9 g/dL (2.2-4.2); Glucose 190 mg/dL (74-106); Potassium 4.7 mmol/L (3.5-5.1); Protein, Total 7.8 g/dL (6.4-8.2); Sodium Level 135 mmol/L (136-145)
[2022-04-25 11:29] LABS: Troponin-I HS 153 pg/mL (3.0-78.0)
[2022-04-25] MEDS: Furosemide 40 MG/4 ML Vial IV ×3 (11:34→22:30)
[2022-04-25] MEDS: 0.9% Saline Lock 10 ML Syringe IV ×3 (11:34→22:30)
[2022-04-25] MEDS: Carvedilol 25 MG Tablet PO ×2 (11:35→22:29)
[2022-04-25] MEDS: Aspirin E.C. 81 MG Tablet PO (11:35)
[2022-04-25] MEDS: Clopidogrel Bisulfate 75 MG Tablet PO (11:35)
[2022-04-25] MEDS: amLODIPine 5 MG Tablet PO (11:35)
[2022-04-25] MEDS: Lisinopril 20 MG Tablet PO ×2 (11:35→22:29)
--- NOTE | 2022-04-25 11:38 | CON.PCM.CA_ITS ---
Assessment & Plan Assessment/Plan (1) Dyspnea on exertion: PLAN: He does have a history of dyspnea on exertion which appears to be worse at this time. His natruretic peptide level is elevated suggesting that he may have evidence of diastolic heart failure. He did have an echocardiogram performed which demonstrated preserved left ventricular systolic function estimated at 55% plus. No valvular abnormalities are noted. I would recommend diuresis at this time. (2) History of coronary artery stent placement: PLAN: He is status post previous angioplasty and stenting as noted above. Depending on the trending of the troponin further recommendations will be made as to whether he would require further reevaluation of his coronary anatomy. (3) Essential hypertension: PLAN: He does have a history of hypertension his blood pressure is under fair control. He is on adequate guideline directed medical therapy and this will be continued. (4) Morbid obesity: PLAN: He is morbidly obese and this may be contributing to some of his underlying problem. Risk factor modification has been emphasized. Thank you for allowing me to participate in the care of your patient. Please don't hesitate to call if any issues arise. HPI Consult Data Date of Consult: 04/25/22 HPI Narrative HPI Narrative: RUMA COKER, is a 66 M who presented to [facility] with complaints of shortness of breath which has been ongoing for few months. He said that he got COVID in the spring of this year and ever since then he has been short of breath.? He does have a history of coronary artery disease with stenting to his right coronary artery in 2011.? He also has a history of hypertension and diabetes.? He presented to the hospital in September 2020 with a non-ST myocardial infarction.? He did undergo a diagnostic heart catheterization which he was noted to have high-grade left circumflex disease, moderately severe LAD disease and moderate disease of his RCA.? His ejection fraction was well-preserved.? It was felt that the patient would benefit being transferred to a tertiary hospital for consideration of bypass surgery. Patient was transferred to [facility].? He did undergo evaluation by a CT surgeon it was felt that he would benefit from a PCI, so he did undergo stenting to his left circumflex and LAD.He does not have any chest pain.? 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 He does not have any palpitations.? He does not have any lightheadedness/dizziness.? He does have some pedal edema. He says that he has really not felt well since his COVID. He presented to [facility] and was transferred here. His EKG demonstrated nonspecific ST changes high-sensitivity troponin was initially normal and now mildly abnormal. He specifically denies any chest pain whatsoever. [facility] Medical History (Updated 04/25/22 @ 12:[address] Ti Ferreira MD) ACS (acute coronary syndrome) (10/20/20) Atherosclerosis of [place] coronary artery of [place] heart without angina pectoris COPD (chronic obstructive pulmonary disease) Coronary artery disease Diabetic neuropathy DM type 2 (diabetes mellitus, type 2) Dyspnea on exertion Essential hypertension History of non-ST elevation myocardial infarction (NSTEMI) (10/20/20) Obesity Pure hypercholesterolemia Home Medications aspirin 81 mg tablet,delayed release (Adult Low Dose Aspirin) 81 mg PO QDAY [facility] 05/19/17 [History Last Taken 04/24/22 08:00] blood-glucose meter #1 ea 08/23/18 [Rx Last Taken Unknown] coenzyme Q10 100 mg capsule (Co Q-10) 200 mg PO PRN PRN [facility] 08/20/20 [History Last Taken Unknown] albuterol sulfate 90 mcg/actuation aerosol inhaler 2 puff inhalation Q4H PRN Wheezing #8.5 grams 07/01/21 [Rx Last Taken 04/24/22 22:00] blood sugar diagnostic (Blood Glucose Test strips) #200 ea 07/01/21 [Rx Last Taken Unknown] lancets 30 gauge #200 ea 07/01/21 [Rx Last Taken Unknown] enalapril maleate 20 mg tablet 20 mg PO BID #180 tabs 08/20/21 [Rx Last Taken 04/24/22 20:00] nitroglycerin 0.4 mg sublingual tablet 0.4 mg sublingual Q5-15M PRN chest pain #25 tabs 11/12/21 [Rx Last Taken Unknown] amlodipine 5 mg tablet 5 mg PO DAILY blood pressure 04/25/22 [History Last Taken Unknown] carvedilol 25 mg tablet (Coreg) 25 mg PO BID heart 04/25/22 [History Last Taken 04/24/22 20:00] clopidogrel 75 mg tablet 75 mg PO DAILY antiplatlet 04/25/22 [History Last Taken 04/24/22 08:00] glimepiride 4 mg tablet 4 mg PO BID diabetes 04/25/22 [History Last Taken 04/24/22 17:00] hydrochlorothiazide 25 mg tablet 25 mg PO QDAY diuretic 04/25/22 [History Last Taken 04/24/22 08:00] metformin 500 mg tablet 1,000 mg PO BID diabetes 04/25/22 [History Last Taken 04/24/22 17:00] rosuvastatin 20 mg tablet 20 mg PO DAILY lowers cholesterol 04/25/22 [History Last Taken 04/24/22 22:00] Allergy/AdvReac Type Severity Reaction Status Date / Time lovastatin Allergy Severe Unknown Verified 08/20/21 08:34 pravastatin Allergy Severe Unknown Verified 08/20/21 08:34 atorvastatin AdvReac Severe myalgias Verified 08/20/21 08:34 Family History Brother Diabetes Father COPD (chronic obstructive pulmonary disease) Surgical History H/O cardiac catheterization (10/22/20) History of coronary artery stent placement (11/01/20) Social History Smoking Status: Former smoker second hand exposure: No alcohol intake: never substance use type: does not use ROS Constitutional Constitutional: Denies fever(s) or weight loss Eyes Eyes: Reports systems reviewed and no addt'l complaints, except as documented ENT HEENT: Reports systems reviewed and no addt'l complaints, except as documented Cardiovascular Cardiovascular: Reports dyspnea at rest and dyspnea on exertion; Denies chest pain at rest, chest pain with activity, edema, palpitations or paroxysmal nocturnal dyspnea Respiratory/Chest Respiratory/Chest: Denies dyspnea on exertion, productive cough, shortness of breath at rest or shortness of breath with exertion Gastrointestinal Gastrointestinal: Denies change in bowel habits, nausea, vomiting or weight changes Genitourinary Genitourinary: Denies difficulty urinating Musculoskeletal Musculoskeletal: Denies joint stiffness or muscle weakness Integumentary Integumentary: Denies lesions Neurologic Neurologic: Denies dizziness or syncope Psychiatric Psychiatric: Denies anxiety Endocrine Endocrinology: Denies excessive sweating or fatigue Hematologic/Lymphatic Hematologic/Lymphatic: Denies anemia Allergic/Immunologic Allergic/Immunologic: Denies seasonal rhinorrhea Physical Exam Const alert, oriented x3 and no apparent distress General Appearance: cooperative HEENT hearing grossly normal bilaterally Head and Scalp: atraumatic Eyes EOMs intact bilaterally Neck General: normal visual inspection Chest inspection of chest normal and palpation of chest normal Resp normal respiratory effort Auscultation: clear to auscultation bilaterally Cardio regular rate, regular rhythm, S1 normal heart sound and S2 normal heart sound Jugular Venous Distention: JVD GI normal to inspection, nondistended, normoactive bowel sounds Extremity normal capillary refill General Extremity: edema bilateral Peripheral Pulses: Yes pulses 2+ throughout and femoral pulses present Skin no rashes or lesions noted Neuro oriented x3 and CN's II-XII intact bilaterally Psych Appearance: grossly normal and appropriate Risk Stratification Risk Stratification Applicable: No Objective Data Vital Signs: Vital Signs Temp Pulse Resp BP Pulse Ox O2 Del Method O2 Flow Rate 97.4 F L 82 22 H 157/89 H 91 High Flow 7 04/25/22 09:32 04/25/22 10:03 04/25/22 09:32 04/25/22 09:32 04/25/22 10:00 04/25/22 10:00 04/25/22 10:00 Oxygen Flow Rate (L/min) 7 Oxygen Delivery Method High Flow Weight: 384 lb 4.251 oz Body Mass Index (BMI) 52.1 Lab / Micro Data Result Diagrams: 04/25/22 10:40 04/25/22 10:40 Labs: Laboratory Results - last 24 hr 04/25/22 10:40: WBC 6.6, RBC 4.97, Hgb 14.0, Hct 45.5, MCV 91.5, MCH 28.2, MCHC 30.8 L, RDW Std Deviation 48.0 H, RDW Coeff of Cedric 14.2, Plt Count 185, MPV 9.1, Immature Gran % (Auto) 0.600, Neut % (Auto) 91.6 H, Lymph % (Auto) 5.8 L, [place] % (Auto) 1.8, Eos % (Auto) 0.0, Baso % (Auto) 0.2, Absolute Neuts (auto) 6.1, Absolute Lymphs (auto) 0.38 L, Nucleated RBC % 0, Differential Comment COMMENT 04/25/22 10:40: Sodium 135 L, Potassium 4.7, Chloride 93 L, Carbon Dioxide 39.0 H, Anion Gap 3 L, BUN 17, Creatinine 0.76, Estim Creat Clear Calc 107.78, Est GFR (MDRD) Af Amer 132, Est GFR (MDRD) Non-Af 109, BUN/Creatinine Ratio 22.3 H, Glucose 190 H, Calcium 9.2, Total Bilirubin 1.00, AST 9 L, ALT 17, Alkaline Phosphatase 55, Total Protein 7.8, Albumin 2.9 L, Globulin 4.9 H, Albumin/ Globulin Ratio 0.6 L 04/25/22 10:40: B-Natriuretic Peptide 175.8 H 04/25/22 10:40: Troponin I High Sens 153 H* Cardiology Labs/Tests 04/25/22 10:40: WBC 6.6, RBC 4.97, Hgb 14.0, Hct 45.5, MCV 91.5, MCH 28.2, MCHC 30.8 L, Plt Count 185, MPV 9.1, Immature Gran % (Auto) 0.600, Neut % (Auto) 91.6 H, Lymph % (Auto) 5.8 L, [place] % (Auto) 1.8, Eos % (Auto) 0.0, Baso % (Auto) 0.2, Absolute Neuts (auto) 6.1, Nucleated RBC % 0 04/25/22 10:40: Sodium 135 L, Potassium 4.7, Chloride 93 L, Carbon Dioxide 39.0 H, Anion Gap 3 L, BUN 17, Creatinine 0.76, Est GFR (MDRD) Af Amer 132, Est GFR (MDRD) Non-Af 109, BUN/Creatinine Ratio 22.3 H, Glucose 190 H, Calcium 9.2, Total Bilirubin 1.00 04/25/22 10:40: B-Natriuretic Peptide 175.8 H Rhythm: EKG: ECHO: Stress Test: Cardiac Cath: PCI: CT Surgery: Holter monitor: EPS: PPM: CXR: Chest CT Scan: Radiography Diagnostic Testing: Radiology Impression Echocardiogram 04/25/22 09:39 Interpretation Summary Normal LV size. Left ventricular systolic function is normal. The estimated ejection fraction is 55 %. Contrast injection was performed. The study was technically limited. The study was technically difficult. Ordering Physician: Olimpia Ortiz Performed By: Deepak Aaron RCS
[2022-04-25] MEDS: Insulin Lispro 100 UNIT/ML INSULN.PEN SC ×3 (11:56→22:30)
[2022-04-25 12:10] LABS: Bedside Glucose 193 mg/dL (74-106)
[2022-04-25 13:44] LABS: Troponin-I HS 141 pg/mL (3.0-78.0)
[2022-04-25] MEDS: Glimepiride 4 MG Tablet PO (16:20)
[2022-04-25 16:46] LABS: Bedside Glucose 245 mg/dL (74-106)
--- NOTE | 2022-04-25 17:15 | CASEMGMT ---
RN ZUNILDA BROOD HATCHERY MANAGER CM to room to meet with patient for initial transition planning/care coordination assessment. MARCOS MAURO introduced self and role at [facility]. Pt voices understanding and consents to assessment at this time. Pt resting in bed in no distress at this time. Pt is A/O at this time and answers all questions appropriately. Care providers, pharmacy, and demographics verified/updated at this time. PCP: CLEO Lorenzo @ [facility] Specialists: Dr Ferreira-cardiology, Dr Mata-endocrinology Preferred Pharmacy: [facility] Insurance: [employer] [address] Prescription Benefit: Yes Living Will/HPOA: Pt does not currently have LW/HCPOA LNOK: , Torie. 3 adult children Living Arrangements: Lives w/ in 2-story home w/no steps to enter. [facility] Transportation: Pt states drives self and states no transportation concerns at this time. also drives. DME: States has the following DME: functioning glucometer w/supplies and has all diabetic medications needed, pulse ox, oxygen thru [facility] @ 3l/m. Has concentrator and portable O2 tank, which can bring in for pt to go home on @ d/c. Pt states no need for further DME at this time. HHC/SNF: No hx of either. No needs identified. Discussed [facility] Pt link program and pt states he is interested in same. Order placed for referral. Pt wishes to return home and states has no concerns with going home at time of discharge. CM to follow for any increase in home oxygen needs and any further discharge planning/needs. Pt voices no further concerns/needs at this time. Advised pt to ask for CM if any further questions/concerns/needs arise. Voices understanding. PLAN: Home w/Pt Link Grayson FAULKNER RN, CM
[2022-04-25 17:41] LABS: Troponin-I HS 129 pg/mL (3.0-78.0)
[2022-04-25] MEDS: Enoxaparin 40 MG/0.4 ML Syringe SC (22:29)
[2022-04-25] MEDS: Rosuvastatin 20 MG Tablet PO (22:29)
[2022-04-25 23:20] LABS: Bedside Glucose 162 mg/dL (74-106)
[2022-04-26] VITALS (17 sets, daily range): BP systolic 108–123; BP diastolic 61–72; PULSE 57–80; RESP 12–21; TEMP 36.3–36.7; O2SAT 92–96
[2022-04-26] MEDS: Furosemide 40 MG/4 ML Vial IV ×3 (06:10→20:38)
[2022-04-26] MEDS: 0.9% Saline Lock 10 ML Syringe IV ×2 (06:11→13:39)
[2022-04-26 06:50] LABS: Bedside Glucose 131 mg/dL (74-106)
[2022-04-26] MEDS: Ipratropium/Albuterol Sulfate 3 ML AMPUL.NEB INHALATION ×4 (07:10→19:13)
[2022-04-26 07:14] LABS: Absolute Lymphocyte Count 1.25 X10^3/uL (0.83-4.51); Basophil# 0.04 X10^3/uL; Basophil% 0.4 % (0-1); Eosinophil# 0.13 X10^3/uL; Eosinophils% 1.4 % (0-5); Hematocrit 42.8 % (40-54); Hemoglobin 12.3 g/dL (13.0-16.5); Lymphocyte # 1.25 X10^3/ul (0.83-4.51); Lymphocyte % 13.6 % (19-41); Mean Corp Hgb Conc 28.7 g/dL (32-36); Mean Corpuscular Hgb 27.4 pg (27.0-32.0); Mean Corpuscular Volume 95.3 fL (80-94); Mean Platelet Vol. 9.1 fl (6.2-12.0); Monocyte# 0.75 X10^3/uL; Monocyte% 8.2 % (0-10); NRBC Flagged by Analyzer 0 % (0-5); Neutrophil # 6.97 X10^3/uL (2.7-7.7); Neutrophil % 75.9 % (47-70); Platelet Count 194 K/mm3 (150-450); RBC Distribution Width CV 14.4 % (11.6-14.6); RBC Distribution Width SD 49.6 fl (35.1-43.9); Red Blood Count 4.49 M/mm3 (4.6-6.2); White Blood Count 9.2 K/mm3 (4.4-11.0)
[2022-04-26 08:08] LABS: ALB/GLOB Ratio 0.6 RATIO (0.9-2.4); AST(SGOT) 11 U/L (15-37); Alanine Aminotransfer ALT/SGPT 15 U/L (16-61); Albumin, Serum 2.6 g/dL (3.2-5.0); Alkaline Phosphatase 44 U/L (45-117); Anion Gap 0 (5-15); BUN 22 mg/dL (7-18); BUN/Creat Ratio 27.7 RATIO (10-20); Calcium,Total 8.9 mg/dL (8.5-10.1); Chloride 92 mmol/L (98-107); Creatinine, Serum 0.79 mg/dL (0.70-1.30); EST Glomerular Filtration Rate 104 mL/min (>60); Est Glom Filt Rate - Afr Amer 126 mL/min (>60); Estimated Creatinine Clearance 103.68 ml/min; Globulin 4.1 g/dL (2.2-4.2); Glucose 113 mg/dL (74-106); Potassium 4.6 mmol/L (3.5-5.1); Protein, Total 6.7 g/dL (6.4-8.2); Sodium Level 135 mmol/L (136-145)
[2022-04-26] MEDS: Glimepiride 4 MG Tablet PO ×2 (09:00→16:22)
[2022-04-26] MEDS: Carvedilol 25 MG Tablet PO ×2 (09:01→20:38)
[2022-04-26] MEDS: Aspirin E.C. 81 MG Tablet PO (09:01)
[2022-04-26] MEDS: Clopidogrel Bisulfate 75 MG Tablet PO (09:02)
[2022-04-26] MEDS: amLODIPine 5 MG Tablet PO (09:02)
[2022-04-26] MEDS: Lisinopril 20 MG Tablet PO ×2 (09:02→20:38)
[2022-04-26] MEDS: Enoxaparin 40 MG/0.4 ML Syringe SC ×2 (09:04→20:39)
--- NOTE | 2022-04-26 09:13 | PN.CARD_ITS ---
Subjective Subjective Patient seen and evaluated. Appears to be doing much better now. Objective Data Vital Signs: Vital Signs Temp Pulse Resp BP Pulse Ox O2 Del Method O2 Flow Rate 97.4 F L 69 18 123/72 H 96 Nasal Cannula 5 04/26/22 09:00 04/26/22 09:00 04/26/22 09:00 04/26/22 09:00 04/26/22 09:00 04/26/22 09:00 04/26/22 09:00 FiO2 40 04/26/22 07:32 Oxygen Flow Rate (L/min) 5 Oxygen Delivery Method Nasal Cannula Weight: 384 lb 4.251 oz Body Mass Index (BMI) 52.1 Intake & Output: Intake and Output for Last 24 Hours 04/24/22 04/25/22 04/26/22 23:59 23:59 23:59 Intake Total 835 / 1055 220 / 220 Output Total 2500 / 2820 820 / 820 Balance -1665 / -1765 -600 / -600 Lab / Micro Data Result Diagrams: 04/26/22 06:09 04/26/22 06:09 Labs: Laboratory Results - last 24 hr 04/25/22 10:40: WBC 6.6, RBC 4.97, Hgb 14.0, Hct 45.5, MCV 91.5, MCH 28.2, MCHC 30.8 L, RDW Std Deviation 48.0 H, RDW Coeff of Cedric 14.2, Plt Count 185, MPV 9.1, Immature Gran % (Auto) 0.600, Neut % (Auto) 91.6 H, Lymph % (Auto) 5.8 L, [place] % (Auto) 1.8, Eos % (Auto) 0.0, Baso % (Auto) 0.2, Absolute Neuts (auto) 6.1, Absolute Lymphs (auto) 0.38 L, Nucleated RBC % 0, Differential Comment COMMENT 04/25/22 10:40: Sodium 135 L, Potassium 4.7, Chloride 93 L, Carbon Dioxide 39.0 H, Anion Gap 3 L, BUN 17, Creatinine 0.76, Estim Creat Clear Calc 107.78, Est GFR (MDRD) Af Amer 132, Est GFR (MDRD) Non-Af 109, BUN/Creatinine Ratio 22.3 H, Glucose 190 H, Calcium 9.2, Total Bilirubin 1.00, AST 9 L, ALT 17, Alkaline Phosphatase 55, Total Protein 7.8, Albumin 2.9 L, Globulin 4.9 H, Albumin /Globulin Ratio 0.6 L 04/25/22 10:40: B-Natriuretic Peptide 175.8 H 04/25/22 10:40: Troponin I High Sens 153 H* 04/25/22 11:48: POC Glucose 193 H 04/25/22 12:44: Troponin I High Sens 141 H* 04/25/22 16:17: POC Glucose 245 H 04/25/22 16:27: Troponin I High Sens 129 H* 04/25/22 22:29: POC Glucose 162 H 04/26/22 06:09: WBC 9.2, RBC 4.49 L, Hgb 12.3 L, Hct 42.8, MCV 95.3 H, MCH 27.4, MCHC 28.7 L D, RDW Std Deviation 49.6 H, RDW Coeff of Cedric 14.4, Plt Count 194, MPV 9.1, Immature Gran % (Auto) 0.500, Neut % (Auto) 75.9 H, Lymph % (Auto) 13.6 L, [place] % (Auto) 8.2, Eos % (Auto) 1.4, Baso % (Auto) 0.4, Absolute Neuts (auto) 7.0, Absolute Lymphs (auto) 1.25, Nucleated RBC % 0 04/26/22 06:09: Sodium 135 L, Potassium 4.6, Chloride 92 L, Carbon Dioxide 43.0 H, Anion Gap 0 L, BUN 22 H, Creatinine 0.79, Estim Creat Clear Calc 103.68, Est GFR (MDRD) Af Amer 126, Est GFR (MDRD) Non-Af 104, BUN/Creatinine Ratio 27.7 H, Glucose 113 H, Calcium 8.9, Total Bilirubin 0.60, AST 11 L, ALT 15 L, Alkaline Phosphatase 44 L, Total Protein 6.7, Albumin 2.6 L, Globulin 4.1, Albumin/Globulin Ratio 0.6 L 04/26/22 06:13: POC Glucose 131 H Micro: Microbiology 04/25/22 11:50 Sputum, Expectorated/Coughed Gram Stain - Final Cardiology Labs/Tests 04/25/22 10:40: WBC 6.6, RBC 4.97, Hgb 14.0, Hct 45.5, MCV 91.5, MCH 28.2, MCHC 30.8 L, Plt Count 185, MPV 9.1, Immature Gran % (Auto) 0.600, Neut % (Auto) 91.6 H, Lymph % (Auto) 5.8 L, [place] % (Auto) 1.8, Eos % (Auto) 0.0, Baso % (Auto) 0.2, Absolute Neuts (auto) 6.1, Nucleated RBC % 0 04/25/22 10:40: Sodium 135 L, Potassium 4.7, Chloride 93 L, Carbon Dioxide 39.0 H, Anion Gap 3 L, BUN 17, Creatinine 0.76, Est GFR (MDRD) Af Amer 132, Est GFR (MDRD) Non-Af 109, BUN/Creatinine Ratio 22.3 H, Glucose 190 H, Calcium 9.2, Total Bilirubin 1.00 04/25/22 10:40: B-Natriuretic Peptide 175.8 H 04/26/22 06:09: WBC 9.2, RBC 4.49 L, Hgb 12.3 L, Hct 42.8, MCV 95.3 H, MCH 27.4, MCHC 28.7 L D, Plt Count 194, MPV 9.1, Immature Gran % (Auto) 0.500, Neut % (Auto) 75.9 H, Lymph % (Auto) 13.6 L, [place] % (Auto) 8.2, Eos % (Auto) 1.4, Baso % (Auto) 0.4, Absolute Neuts (auto) 7.0, Nucleated RBC % 0 04/26/22 06:09: Sodium 135 L, Potassium 4.6, Chloride 92 L, Carbon Dioxide 43.0 H, Anion Gap 0 L, BUN 22 H, Creatinine 0.79, Est GFR (MDRD) Af Amer 126, Est GFR (MDRD) Non-Af 104, BUN/Creatinine Ratio 27.7 H, Glucose 113 H, Calcium 8.9, Total Bilirubin 0.60 Rhythm: EKG: ECHO: Stress Test: Cardiac Cath: PCI: CT Surgery: Holter monitor: EPS: PPM: CXR: Chest CT Scan: Radiography Diagnostic Testing: Radiology Impression Echocardiogram 04/25/22 09:39 Interpretation Summary Normal LV size. Left ventricular systolic function is normal. The estimated ejection fraction is 55 %. Contrast injection was performed. The study was technically limited. The study was technically difficult. Ordering Physician: Olimpia Ortiz Performed By: Deepak Aaron RCS Physical Exam Const alert, oriented x3 and no apparent distress General Appearance: cooperative HEENT hearing grossly normal bilaterally Head and Scalp: atraumatic Eyes EOMs intact bilaterally Neck General: normal visual inspection Chest inspection of chest normal and palpation of chest normal Resp normal respiratory effort Auscultation: clear to auscultation bilaterally Cardio regular rate, regular rhythm, S1 normal heart sound and S2 normal heart sound Jugular Venous Distention: JVD GI normal to inspection, nondistended, normoactive bowel sounds Extremity normal capillary refill General Extremity: edema bilateral Peripheral Pulses: Yes pulses 2+ throughout and femoral pulses present Skin no rashes or lesions noted Neuro oriented x3 and CN's II-XII intact bilaterally Psych Appearance: grossly normal and appropriate Assessment & Plan Assessment/Plan (1) Dyspnea on exertion: PLAN: He does have a history of dyspnea on exertion which appears to be worse at this time. His natruretic peptide level is elevated suggesting that he may have evidence of diastolic heart failure. He did have an echocardiogram performed which demonstrated preserved left ventricular systolic function estimated at 55% plus. No valvular abnormalities are noted. I would recommend diuresis at this time. He appears to be doing better with the diuresis as well. * Will recommend the addition of empagliflozin (2) History of coronary artery stent placement: PLAN: He is status post previous angioplasty and stenting as noted above. Depending on the trending of the troponin further recommendations will be made as to whether he would require further reevaluation of his coronary anatomy. (3) Essential hypertension: PLAN: He does have a history of hypertension his blood pressure is under fair control. He is on adequate guideline directed medical therapy and this will be continued. (4) Morbid obesity: PLAN: He is morbidly obese and this may be contributing to some of his underlying problem. Risk factor modification has been emphasized. Thank you for allowing me to participate in the care of your patient. Please don't hesitate to call if any issues arise.
--- NOTE | 2022-04-26 09:29 | PN.HOSP_ITS ---
Subjective Subjective Follow-up on acute on chronic hypoxic respiratory failure/acute CHF exacerbation: Patient was seen and examined. He denied any dizziness or dizziness or chest pain. Oxygen requirements have improved to 5 L of oxygen. Objective Data Objective Data Vital Signs: Vital Signs Temp Pulse Resp BP Pulse Ox O2 Del Method O2 Flow Rate 97.4 F L 69 18 123/72 H 96 Nasal Cannula 5 04/26/22 09:00 04/26/22 09:00 04/26/22 09:00 04/26/22 09:00 04/26/22 09:00 04/26/22 09:00 04/26/22 09:00 FiO2 40 04/26/22 07:32 Oxygen Flow Rate (L/min) 5 Oxygen Delivery Method Nasal Cannula Weight: 174.3 kg Body Mass Index (BMI) 52.1 Intake & Output: Intake and Output for Last 24 Hours 04/24/22 04/25/22 04/26/22 23:59 23:59 23:59 Intake Total 835 / 1055 220 / 220 Output Total 2500 / 2820 820 / 820 Balance -1665 / -1765 -600 / -600 Lab / Micro Data Result Diagrams: 04/26/22 06:09 04/26/22 06:09 Labs: Laboratory Results - last 24 hr 04/25/22 10:40: WBC 6.6, RBC 4.97, Hgb 14.0, Hct 45.5, MCV 91.5, MCH 28.2, MCHC 30.8 L, RDW Std Deviation 48.0 H, RDW Coeff of Cedric 14.2, Plt Count 185, MPV 9.1, Immature Gran % (Auto) 0.600, Neut % (Auto) 91.6 H, Lymph % (Auto) 5.8 L, [place] % (Auto) 1.8, Eos % (Auto) 0.0, Baso % (Auto) 0.2, Absolute Neuts (auto) 6.1, Absolute Lymphs (auto) 0.38 L, Nucleated RBC % 0, Differential Comment COMMENT 04/25/22 10:40: Sodium 135 L, Potassium 4.7, Chloride 93 L, Carbon Dioxide 39.0 H, Anion Gap 3 L, BUN 17, Creatinine 0.76, Estim Creat Clear Calc 107.78, Est GFR (MDRD) Af Amer 132, Est GFR (MDRD) Non-Af 109, BUN/Creatinine Ratio 22.3 H, Glucose 190 H, Calcium 9.2, Total Bilirubin 1.00, AST 9 L, ALT 17, Alkaline Phosphatase 55, Total Protein 7.8, Albumin 2.9 L, Globulin 4.9 H, Albumin/Globu juni Ratio 0.6 L 04/25/22 10:40: B-Natriuretic Peptide 175.8 H 04/25/22 10:40: Troponin I High Sens 153 H* 04/25/22 11:48: POC Glucose 193 H 04/25/22 12:44: Troponin I High Sens 141 H* 04/25/22 16:17: POC Glucose 245 H 04/25/22 16:27: Troponin I High Sens 129 H* 04/25/22 22:29: POC Glucose 162 H 04/26/22 06:09: WBC 9.2, RBC 4.49 L, Hgb 12.3 L, Hct 42.8, MCV 95.3 H, MCH 27.4, MCHC 28.7 L D, RDW Std Deviation 49.6 H, RDW Coeff of Cedric 14.4, Plt Count 194, MPV 9.1, Immature Gran % (Auto) 0.500, Neut % (Auto) 75.9 H, Lymph % (Auto) 13.6 L, [place] % (Auto) 8.2, Eos % (Auto) 1.4, Baso % (Auto) 0.4, Absolute Neuts (auto) 7.0, Absolute Lymphs (auto) 1.25, Nucleated RBC % 0 04/26/22 06:09: Sodium 135 L, Potassium 4.6, Chloride 92 L, Carbon Dioxide 43.0 H, Anion Gap 0 L, BUN 22 H, Creatinine 0.79, Estim Creat Clear Calc 103.68, Est GFR (MDRD) Af Amer 126, Est GFR (MDRD) Non-Af 104, BUN/Creatinine Ratio 27.7 H, Glucose 113 H, Calcium 8.9, Total Bilirubin 0.60, AST 11 L, ALT 15 L, Alkaline Phosphatase 44 L, Total Protein 6.7, Albumin 2.6 L, Globulin 4.1, Albumin/Globulin Ratio 0.6 L 04/26/22 06:13: POC Glucose 131 H Micro: Microbiology 04/25/22 11:50 Sputum, Expectorated/Coughed Gram Stain - Final Radiography Diagnostic Testing: Radiology Impression Echocardiogram 04/25/22 09:39 Interpretation Summary Normal LV size. Left ventricular systolic function is normal. The estimated ejection fraction is 55 %. Contrast injection was performed. The study was technically limited. The study was technically difficult. Ordering Physician: Olimpia Ortiz Performed By: Deepak Aaron RCS Physical Exam Narrative Physical exam: General: Alert, Oriented x3, Cooperative, morbidly obese, on 5 L of oxygen HEENT: Atraumatic Oral: Moist Mucosa Neck: Supple Lungs: Diminished to auscultation, scattered wheezes Cardiovascular: HS I+II, regular, no murmurs Abdomen: Bowel Sounds Present, Soft, Non Tender Extremities: Bilateral leg edema +3-4, left anterior rodríguez had yellowish crusting Skin: No rashes, No breakdown Neurological: Grossly intact Psych/Mental Status: Appropriate Assessment & Plan Assessment/Plan (1) DM type 2 (diabetes mellitus, type 2): QUALIFIERS: Diabetes mellitus supervisor long goods insulin use: without supervisor long goods use Diabetes mellitus complication status: with unspecified complications Qualified Code(s): E11.8 - Type 2 diabetes mellitus with unspecified complications PLAN: Plan 1. Acute on chronic hypoxic respiratory failure secondary to acute exacerbation of CHF with preserved EF, improving Patient is currently on 5 L of oxygen; on 4 L of oxygen chronically; He was on BiPAP in the hospital, that has improved to 7 L of oxygen Acute PE ruled out with a negative CTA of the chest done in [place] Will continue CHF management, wean off oxygen for SPO2 more than 94% 2. Acute exacerbation heart failure with preserved EF, EF 55% 2D echo done yesterday showed an EF of 55%, left ventricular systolic function Patient presented with a BNP of more than 1000; Continue on Lasix 40 mg IV every 8h, CHF protocol Trend troponins, cardiology following 3. CAD status post stents, continue with aspirin, Plavix, statin, enalapril Will trend troponins 4. Type II DM, blood sugars are better controlled Continue to hold metformin and glimepiride Continue to monitor blood sugars with insulin sliding scale with blood glucose checks 5. Hypertension, controlled, Continue to hold hydrochlorothiazide, Continue on enalapril, Coreg Patient should probably be off amlodipine on account of bilateral leg edema -we will monitor 6. Morbid obesity, BMI 52.1, lifestyle modification recommended 7. DVT prophylaxis?Lovenox Charges/Coding Visit Charges Inpatient E&M: 36979 Subs Hosp L2
[2022-04-26] MEDS: Empagliflozin 10 MG Tablet PO (10:15)
[2022-04-26] MEDS: Insulin Lispro 100 UNIT/ML INSULN.PEN SC ×3 (11:17→20:38)
[2022-04-26 11:40] LABS: Bedside Glucose 240 mg/dL (74-106)
[2022-04-26 16:45] LABS: Bedside Glucose 150 mg/dL (74-106)
[2022-04-26] MEDS: Rosuvastatin 20 MG Tablet PO (20:38)
[2022-04-26 23:56] LABS: Bedside Glucose 183 mg/dL (74-106)
[2022-04-27] VITALS (16 sets, daily range): BP systolic 112–133; BP diastolic 49–74; PULSE 62–78; RESP 12–22; TEMP 36.4–37.1; O2SAT 93–97
[2022-04-27 04:26] LABS: Absolute Lymphocyte Count 1.39 X10^3/uL (0.83-4.51); Absolute Neutrophil Count 6.3 X10^3/uL (2.0-7.7); Basophil# 0.06 X10^3/uL; Basophil% 0.7 % (0-1); Eosinophil# 0.26 X10^3/uL; Eosinophils% 2.9 % (0-5); Hematocrit 42.6 % (40-54); Hemoglobin 12.3 g/dL (13.0-16.5); Lymphocyte # 1.39 X10^3/ul (0.83-4.51); Lymphocyte % 15.7 % (19-41); Mean Corp Hgb Conc 28.9 g/dL (32-36); Mean Corpuscular Hgb 27.4 pg (27.0-32.0); Mean Corpuscular Volume 94.9 fL (80-94); Mean Platelet Vol. 8.9 fl (6.2-12.0); Monocyte# 0.85 X10^3/uL; Monocyte% 9.6 % (0-10); NRBC Flagged by Analyzer 0 % (0-5); Neutrophil # 6.28 X10^3/uL (2.7-7.7); Neutrophil % 70.8 % (47-70); Platelet Count 197 K/mm3 (150-450); RBC Distribution Width CV 14.5 % (11.6-14.6); RBC Distribution Width SD 49.3 fl (35.1-43.9); Red Blood Count 4.49 M/mm3 (4.6-6.2); White Blood Count 8.9 K/mm3 (4.4-11.0)
[2022-04-27 05:50] LABS: ALB/GLOB Ratio 0.6 RATIO (0.9-2.4); AST(SGOT) 14 U/L (15-37); Alanine Aminotransfer ALT/SGPT 18 U/L (16-61); Albumin, Serum 2.7 g/dL (3.2-5.0); Alkaline Phosphatase 45 U/L (45-117); BUN 24 mg/dL (7-18); Calcium,Total 8.7 mg/dL (8.5-10.1); Carbon Dioxide > 45.0 mmol/L (21.0-32.0); Chloride 91 mmol/L (98-107); Creatinine, Serum 0.86 mg/dL (0.70-1.30); EST Glomerular Filtration Rate 95 mL/min (>60); Est Glom Filt Rate - Afr Amer 116 mL/min (>60); Estimated Creatinine Clearance 95.25 ml/min; Globulin 4.2 g/dL (2.2-4.2); Glucose 107 mg/dL (74-106); Protein, Total 6.9 g/dL (6.4-8.2); Sodium Level 137 mmol/L (136-145)
[2022-04-27] MEDS: 0.9% Saline Lock 10 ML Syringe IV ×3 (06:42→17:02)
[2022-04-27] MEDS: Furosemide 40 MG/4 ML Vial IV ×3 (06:43→17:00)
[2022-04-27] MEDS: Ipratropium/Albuterol Sulfate 3 ML AMPUL.NEB INHALATION ×5 (07:22→23:17)
[2022-04-27] MEDS: Aspirin E.C. 81 MG Tablet PO (09:14)
[2022-04-27] MEDS: Carvedilol 25 MG Tablet PO ×2 (09:14→21:54)
[2022-04-27] MEDS: amLODIPine 5 MG Tablet PO (09:14)
[2022-04-27] MEDS: Clopidogrel Bisulfate 75 MG Tablet PO (09:14)
[2022-04-27] MEDS: Enoxaparin 40 MG/0.4 ML Syringe SC ×2 (09:14→21:54)
[2022-04-27] MEDS: Glimepiride 4 MG Tablet PO ×2 (09:14→16:57)
[2022-04-27] MEDS: Lisinopril 20 MG Tablet PO ×2 (09:14→21:54)
[2022-04-27] MEDS: Empagliflozin 10 MG Tablet PO (09:14)
--- NOTE | 2022-04-27 09:31 | PN.CARD_ITS ---
Subjective Subjective Patient seen and evaluated. Appears to be breathing much better. Still needs a little bit of diuresis though. Objective Data Vital Signs: Vital Signs Temp Pulse Resp BP Pulse Ox O2 Del Method O2 Flow Rate 98.8 F 67 16 121/66 H 94 Nasal Cannula 5 04/27/22 08:57 04/27/22 08:57 04/27/22 08:57 04/27/22 08:57 04/27/22 08:57 04/27/22 09:05 04/27/22 09:05 FiO2 40 04/27/22 04:41 Oxygen Flow Rate (L/min) 5 Oxygen Delivery Method Nasal Cannula Weight: 384 lb 4.251 oz Body Mass Index (BMI) 52.1 Intake & Output: Intake and Output for Last 24 Hours 04/25/22 04/26/22 04/27/22 23:59 23:59 23:59 Intake Total 835 / 1055 700 / 1140 440 / 440 Output Total 2500 / 2820 61324 / 64803 2049 / 2049 Balance -1665 / -1765 -34853 / -00005 -1610 / -1610 Lab / Micro Data Result Diagrams: 04/27/22 04:03 04/27/22 04:03 Labs: Laboratory Results - last 24 hr 04/26/22 11:16: POC Glucose 240 H 04/26/22 16:19: POC Glucose 150 H 04/26/22 20:36: POC Glucose 183 H 04/27/22 04:03: WBC 8.9, RBC 4.49 L, Hgb 12.3 L, Hct 42.6, MCV 94.9 H, MCH 27.4, MCHC 28.9 L, RDW Std Deviation 49.3 H, RDW Coeff of Cedric 14.5, Plt Count 197, MPV 8.9, Immature Gran % (Auto) 0.300, Neut % (Auto) 70.8 H, Lymph % (Auto) 15.7 L, [place] % (Auto) 9.6, Eos % (Auto) 2.9, Baso % (Auto) 0.7, Absolute Neuts (auto) 6.3, Absolute Lymphs (auto) 1.39, Nucleated RBC % 0 04/27/22 04:03: Sodium 137, Potassium 4.0, Chloride 91 L, Carbon Dioxide > 45.0 H*, Anion Gap TNP, BUN 24 H, Creatinine 0.86, Estim Creat Clear Calc 95.25, Est GFR (MDRD) Af Amer 116, Est GFR (MDRD) Non-Af 95, BUN/Creatinine Ratio 28.0 H, Glucose 107 H, Calcium 8.7, Total Bilirubin 0.60, AST 14 L, ALT 18, Alkaline Phosphatase 45, Total Protein 6.9, Albumin 2.7 L, Globulin 4.2, Albumin/Globulin Ratio 0.6 L Micro: Microbiology 04/25/22 11:50 Sputum, Expectorated/Coughed Gram Stain - Final 04/25/22 11:50 Sputum, Expectorated/Coughed Respiratory Culture - Final Mixed normal respiratory ethel. No Streptococcus pneumoniae, beta-hemolytic Streptococcus or Staphylococcus aureus isolated. Cardiology Labs/Tests 04/27/22 04:03: WBC 8.9, RBC 4.49 L, Hgb 12.3 L, Hct 42.6, MCV 94.9 H, MCH 27.4, MCHC 28.9 L, Plt Count 197, MPV 8.9, Immature Gran % (Auto) 0.300, Neut % (Auto) 70.8 H, Lymph % (Auto) 15.7 L, [place] % (Auto) 9.6, Eos % (Auto) 2.9, Baso % (Auto) 0.7, Absolute Neuts (auto) 6.3, Nucleated RBC % 0 04/27/22 04:03: Sodium 137, Potassium 4.0, Chloride 91 L, Carbon Dioxide > 45.0 H*, Anion Gap TNP, BUN 24 H, Creatinine 0.86, Est GFR (MDRD) Af Amer 116, Est GFR (MDRD) Non-Af 95, BUN/Creatinine Ratio 28.0 H, Glucose 107 H, Calcium 8.7, Total Bilirubin 0.60 Rhythm: EKG: ECHO: Stress Test: Cardiac Cath: PCI: CT Surgery: Holter monitor: EPS: PPM: CXR: Chest CT Scan: Physical Exam Const alert, oriented x3 and no apparent distress General Appearance: cooperative HEENT hearing grossly normal bilaterally Head and Scalp: atraumatic Eyes EOMs intact bilaterally Neck General: normal visual inspection Chest inspection of chest normal and palpation of chest normal Resp normal respiratory effort Auscultation: clear to auscultation bilaterally Cardio regular rate, regular rhythm, S1 normal heart sound and S2 normal heart sound Jugular Venous Distention: JVD GI normal to inspection, nondistended, normoactive bowel sounds Extremity normal capillary refill General Extremity: edema bilateral Peripheral Pulses: Yes pulses 2+ throughout and femoral pulses present Skin no rashes or lesions noted Neuro oriented x3 and CN's II-XII intact bilaterally Psych Appearance: grossly normal and appropriate Assessment & Plan Assessment/Plan (1) Dyspnea on exertion: PLAN: He does have a history of dyspnea on exertion which appears to be worse at this time. His natruretic peptide level is elevated suggesting that he may have evidence of diastolic heart failure. He did have an echocardiogram performed which demonstrated preserved left ventricular systolic function estimated at 55% plus. No valvular abnormalities are noted. I would recommend diuresis at this time. He appears to be doing better with the diuresis as well. * Will recommend the addition of empagliflozin * He appears to have a mild amount of contraction alkalosis going on. * Will keep in hospital 1 more day. (2) History of coronary artery stent placement: PLAN: He is status post previous angioplasty and stenting as noted above. Depending on the trending of the troponin further recommendations will be made as to whether he would require further reevaluation of his coronary anatomy. (3) Essential hypertension: PLAN: He does have a history of hypertension his blood pressure is under fair control. He is on adequate guideline directed medical therapy and this will be continued. (4) Morbid obesity: PLAN: He is morbidly obese and this may be contributing to some of his underlying problem. Risk factor modification has been emphasized. Thank you for allowing me to participate in the care of your patient. Please don't hesitate to call if any issues arise.
[2022-04-27 09:46] LABS: Bedside Glucose 104 mg/dL (74-106)
[2022-04-27] MEDS: Insulin Lispro 100 UNIT/ML INSULN.PEN SC ×2 (12:05→16:54)
[2022-04-27 12:40] LABS: Bedside Glucose 189 mg/dL (74-106)
--- NOTE | 2022-04-27 15:32 | PN.HOSP_ITS ---
Subjective Subjective Follow-up on acute on chronic hypoxic respiratory failure/acute CHF exacerbation: Patient was seen and examined.? He has been diuresing, oxygen requirements still remain a 5 L of oxygen. Denied any dizziness or palpitation. Objective Data Objective Data Vital Signs: Vital Signs Temp Pulse Resp BP Pulse Ox O2 Del Method O2 Flow Rate 97.8 F 65 18 112/49 L 94 Nasal Cannula 5 04/27/22 15:01 04/27/22 15:21 04/27/22 15:21 04/27/22 15:01 04/27/22 15:01 04/27/22 15:01 04/27/22 15:01 FiO2 40 04/27/22 08:57 Oxygen Flow Rate (L/min) 5 Oxygen Delivery Method Nasal Cannula Weight: 174.3 kg Body Mass Index (BMI) 52.1 Intake & Output: Intake and Output for Last 24 Hours 04/25/22 04/26/22 04/27/22 23:59 23:59 23:59 Intake Total 835 / 1055 700 / 1140 800 / 800 Output Total 2500 / 2820 64374 / 59671 4100 / 4100 Balance -1665 / -1765 -51602 / -40190 -3300 / -3300 Lab / Micro Data Result Diagrams: 04/27/22 04:03 04/27/22 04:03 Labs: Laboratory Results - last 24 hr 04/26/22 16:19: POC Glucose 150 H 04/26/22 20:36: POC Glucose 183 H 04/27/22 04:03: WBC 8.9, RBC 4.49 L, Hgb 12.3 L, Hct 42.6, MCV 94.9 H, MCH 27.4, MCHC 28.9 L, RDW Std Deviation 49.3 H, RDW Coeff of Cedric 14.5, Plt Count 197, MPV 8.9, Immature Gran % (Auto) 0.300, Neut % (Auto) 70.8 H, Lymph % (Auto) 15.7 L, [place] % (Auto) 9.6, Eos % (Auto) 2.9, Baso % (Auto) 0.7, Absolute Neuts (auto) 6.3, Absolute Lymphs (auto) 1.39, Nucleated RBC % 0 04/27/22 04:03: Sodium 137, Potassium 4.0, Chloride 91 L, Carbon Dioxide > 45.0 H*, Anion Gap TNP, BUN 24 H, Creatinine 0.86, Estim Creat Clear Calc 95.25, Est GFR (MDRD) Af Amer 116, Est GFR (MDRD) Non-Af 95, BUN/Creatinine Ratio 28.0 H, Glucose 107 H, Calcium 8.7, Total Bilirubin 0.60, AST 14 L, ALT 18, Alkaline Phosphatase 45, Total Protein 6.9, Albumin 2.7 L, Globulin 4.2, Albumin/Globulin Ratio 0.6 L 04/27/22 06:41: POC Glucose 104 04/27/22 12:02: POC Glucose 189 H Micro: Microbiology 04/25/22 11:50 Sputum, Expectorated/Coughed Gram Stain - Final 04/25/22 11:50 Sputum, Expectorated/Coughed Respiratory Culture - Final Mixed normal respiratory ethel. No Streptococcus pneumoniae, beta-hemolytic Streptococcus or Staphylococcus aureus isolated. Physical Exam Narrative Physical exam: General: Alert, Oriented x3, Cooperative, morbidly obese, on 5 L of oxygen HEENT: Atraumatic Oral: Moist Mucosa Neck: Supple Lungs: Diminished to auscultation, scattered wheezes Cardiovascular: HS I+II, regular, no murmurs Abdomen: Bowel Sounds Present, Soft, Non Tender Extremities: Bilateral leg edema +2, left anterior rodríguez had old yellowish crusting/scab Skin: No rashes, No breakdown Neurological: Grossly intact Psych/Mental Status: Appropriate Assessment & Plan Assessment/Plan (1) DM type 2 (diabetes mellitus, type 2): QUALIFIERS: Diabetes mellitus nursing home insulin use: without assistant terminal manager use Diabetes mellitus complication status: with unspecified complications Qualified Code(s): E11.8 - Type 2 diabetes mellitus with unspecified complications PLAN: Plan 1. Acute on chronic hypoxic respiratory failure secondary to acute exacerbation of CHF with preserved EF, improving Patient remains on 5 L of oxygen; on 4 L of oxygen chronically; He was on BiPAP in [facility] Acute PE ruled out with a negative CTA of the chest done in [place] Will continue CHF management, wean off oxygen for SPO2 more than 94% 2. Acute exacerbation heart failure with preserved EF, EF 55%, improving 2D echo done yesterday showed an EF of 55%, left ventricular systolic function Patient presented with a BNP of more than 1000; He has diuresed well and is currently -27L (unsure of accuracy) Continue on Lasix 40 mg IV every BID (patient seems to be developing contraction alkalosis), Continue with CHF protocol Cardiology following 3. Acute NSTEMI, likely type 2, POA, Troponins on admission 153 -->141--129 H/o CAD status post stents, Medical management recommended Continue with aspirin, Plavix, statin, enalapril 4. Type II DM, blood sugars are better controlled Continue to hold metformin and glimepiride Continue to monitor blood sugars with insulin sliding scale with blood glucose c hecks 5. Hypertension, controlled, Continue to hold hydrochlorothiazide, Continue on enalapril, Coreg Patient should probably be off amlodipine on account of bilateral leg edema -we will monitor 6. Morbid obesity, BMI 52.1, lifestyle modification recommended 7. DVT prophylaxis?Lovenox Charges/Coding Visit Charges Inpatient E&M: 46461 Subs Hosp L2
[2022-04-27 18:41] LABS: Bedside Glucose 152 mg/dL (74-106)
[2022-04-27] MEDS: Rosuvastatin 20 MG Tablet PO (21:54)
[2022-04-27 22:06] LABS: Bedside Glucose 124 mg/dL (74-106)
[2022-04-28] VITALS (12 sets, daily range): BP systolic 120–127; BP diastolic 62–65; PULSE 67–80; RESP 12–21; TEMP 36.3–37.1; O2SAT 86–96
[2022-04-28 05:27] LABS: Absolute Lymphocyte Count 1.11 X10^3/uL (0.83-4.51); Absolute Neutrophil Count 6.8 X10^3/uL (2.0-7.7); Basophil# 0.03 X10^3/uL; Basophil% 0.3 % (0-1); Eosinophil# 0.23 X10^3/uL; Eosinophils% 2.6 % (0-5); Hematocrit 42.6 % (40-54); Hemoglobin 12.7 g/dL (13.0-16.5); Lymphocyte # 1.11 X10^3/ul (0.83-4.51); Lymphocyte % 12.5 % (19-41); Mean Corp Hgb Conc 29.8 g/dL (32-36); Mean Corpuscular Hgb 27.9 pg (27.0-32.0); Mean Corpuscular Volume 93.4 fL (80-94); Monocyte# 0.71 X10^3/uL; NRBC Flagged by Analyzer 0 % (0-5); Neutrophil % 76.3 % (47-70); Platelet Count 183 K/mm3 (150-450); RBC Distribution Width CV 14.6 % (11.6-14.6); RBC Distribution Width SD 49.5 fl (35.1-43.9); Red Blood Count 4.56 M/mm3 (4.6-6.2); White Blood Count 8.9 K/mm3 (4.4-11.0)
[2022-04-28 06:15] LABS: ALB/GLOB Ratio 0.7 RATIO (0.9-2.4); AST(SGOT) 12 U/L (15-37); Alanine Aminotransfer ALT/SGPT 16 U/L (16-61); Albumin, Serum 2.9 g/dL (3.2-5.0); Alkaline Phosphatase 46 U/L (45-117); BUN 25 mg/dL (7-18); BUN/Creat Ratio 27.7 RATIO (10-20); Calcium,Total 8.7 mg/dL (8.5-10.1); Carbon Dioxide > 45.0 mmol/L (21.0-32.0); Chloride 92 mmol/L (98-107); EST Glomerular Filtration Rate 90 mL/min (>60); Est Glom Filt Rate - Afr Amer 109 mL/min (>60); Estimated Creatinine Clearance 91.01 ml/min; Globulin 4.3 g/dL (2.2-4.2); Glucose 124 mg/dL (74-106); Potassium 3.6 mmol/L (3.5-5.1); Protein, Total 7.2 g/dL (6.4-8.2); Sodium Level 139 mmol/L (136-145)
[2022-04-28 06:25] LABS: Bedside Glucose 121 mg/dL (74-106)
--- NOTE | 2022-04-28 06:49 | PCM.PN.CARD ---
Subjective Subjective Seen and evaluated. Objective Data Vital Signs: Vital Signs Temp Pulse Resp BP Pulse Ox O2 Del Method O2 Flow Rate 98.8 F 77 20 H 127/62 H 93 Nasal Cannula 4 04/28/22 04:00 04/28/22 06:42 04/28/22 05:22 04/28/22 04:00 04/28/22 05:22 04/28/22 04:00 04/28/22 04:00 FiO2 40 04/28/22 05:22 Oxygen Flow Rate (L/min) 4 Oxygen Delivery Method Nasal Cannula Weight: 384 lb 11.306 oz Body Mass Index (BMI) 52.1 Intake & Output: Intake and Output for Last 24 Hours 04/26/22 04/27/22 04/28/22 23:59 23:59 23:59 Intake Total 700 / 1140 1300 / 1300 420 / 420 Output Total 85984 / 94889 4100 / 4900 1200 / 1200 Balance -23043 / -16537 -2800 / -3600 -780 / -780 Lab / Micro Data Result Diagrams: 04/28/22 04:45 04/28/22 04:45 Labs: Laboratory Results - last 24 hr 04/27/22 06:41: POC Glucose 104 04/27/22 12:02: POC Glucose 189 H 04/27/22 16:53: POC Glucose 152 H 04/27/22 21:44: POC Glucose 124 H 04/28/22 04:45: WBC 8.9, RBC 4.56 L, Hgb 12.7 L, Hct 42.6, MCV 93.4, MCH 27.9, MCHC 29.8 L, RDW Std Deviation 49.5 H, RDW Coeff of Cedric 14.6, Plt Count 183, MPV 9.0, Immature Gran % (Auto) 0.300, Neut % (Auto) 76.3 H, Lymph % (Auto) 12.5 L, [place] % (Auto) 8.0, Eos % (Auto) 2.6, Baso % (Auto) 0.3, Absolute Neuts (auto) 6.8, Absolute Lymphs (auto) 1.11, Nucleated RBC % 0 04/28/22 04:45: Sodium 139, Potassium 3.6, Chloride 92 L, Carbon Dioxide > 45.0 H*, Anion Gap TNP, BUN 25 H, Creatinine 0.90, Estim Creat Clear Calc 91.01, Est GFR (MDRD) Af Amer 109, Est GFR (MDRD) Non-Af 90, BUN/Creatinine Ratio 27.7 H, Glucose 124 H, Calcium 8.7, Total Bilirubin 0.60, AST 12 L, ALT 16, Alkaline Phosphatase 46, Total Protein 7.2, Albumin 2.9 L, Globulin 4.3 H, Albumin/Globulin Ratio 0.7 L 04/28/22 06:04: POC Glucose 121 H Micro: Microbiology 04/25/22 11:50 Sputum, Expectorated/Coughed Gram Stain - Final 04/25/22 11:50 Sputum, Expectorated/Coughed Respiratory Culture - Final Mixed normal respiratory ethel. No Streptococcus pneumoniae, beta-hemolytic Streptococcus or Staphylococcus aureus isolated. Cardiology Labs/Tests 04/28/22 04:45: WBC 8.9, RBC 4.56 L, Hgb 12.7 L, Hct 42.6, MCV 93.4, MCH 27.9, MCHC 29.8 L, Plt Count 183, MPV 9.0, Immature Gran % (Auto) 0.300, Neut % (Auto) 76.3 H, Lymph % (Auto) 12.5 L, [place] % (Auto) 8.0, Eos % (Auto) 2.6, Baso % (Auto) 0.3, Absolute Neuts (auto) 6.8, Nucleated RBC % 0 04/28/22 04:45: Sodium 139, Potassium 3.6, Chloride 92 L, Carbon Dioxide > 45.0 H*, Anion Gap TNP, BUN 25 H, Creatinine 0.90, Est GFR (MDRD) Af Amer 109, Est GFR (MDRD) Non-Af 90, BUN/Creatinine Ratio 27.7 H, Glucose 124 H, Calcium 8.7, Total Bilirubin 0.60 Rhythm: EKG: ECHO: Stress Test: Cardiac Cath: PCI: CT Surgery: Holter monitor: EPS: PPM: CXR: Chest CT Scan: Physical Exam Const alert, oriented x3 and no apparent distress General Appearance: cooperative HEENT hearing grossly normal bilaterally Head and Scalp: atraumatic Eyes EOMs intact bilaterally Neck General: normal visual inspection Chest inspection of chest normal and palpation of chest normal Resp normal respiratory effort Auscultation: clear to auscultation bilaterally Cardio regular rate, regular rhythm, S1 normal heart sound and S2 normal heart sound Jugular Venous Distention: JVD GI normal to inspection, nondistended, normoactive bowel sounds Extremity normal capillary refill General Extremity: edema bilateral Peripheral Pulses: Yes pulses 2+ throughout and femoral pulses present Skin no rashes or lesions noted Neuro oriented x3 and CN's II-XII intact bilaterally Psych Appearance: grossly normal and appropriate Assessment & Plan Assessment/Plan (1) Dyspnea on exertion: PLAN: He does have a history of dyspnea on exertion which appears to be worse at this time. His natruretic peptide level is elevated suggesting that he may have evidence of diastolic heart failure. He did have an echocardiogram performed which demonstrated preserved left ventricular systolic function estimated at 55% plus. No valvular abnormalities are noted. I would recommend diuresis at this time. He appears to be doing better with the diuresis as well. Will recommend the addition of empagliflozin He appears to have a mild amount of contraction alkalosis going on. (2) History of coronary artery stent placement: PLAN: He is status post previous angioplasty and stenting as noted above. Depending on the trending of the troponin further recommendations will be made as to whether he would require further reevaluation of his coronary anatomy. (3) Essential hypertension: PLAN: He does have a history of hypertension his blood pressure is under fair control. He is on adequate guideline directed medical therapy and this will be continued. (4) Morbid obesity: PLAN: He is morbidly obese and this may be contributing to some of his underlying problem. Risk factor modification has been emphasized. Thank you for allowing me to participate in the care of your patient. Please don't hesitate to call if any issues arise.
[2022-04-28] MEDS: Ipratropium/Albuterol Sulfate 3 ML AMPUL.NEB INHALATION ×2 (07:10→12:23)
--- NOTE | 2022-04-28 07:42 | PN.HOSP_ITS ---
Objective Data Objective Data Vital Signs: Vital Signs Temp Pulse Resp BP Pulse Ox O2 Del Method O2 Flow Rate 98.8 F 77 20 H 127/62 H 93 Nasal Cannula 4 04/28/22 04:00 04/28/22 06:42 04/28/22 05:22 04/28/22 04:00 04/28/22 05:22 04/28/22 07:29 04/28/22 07:29 FiO2 94 04/28/22 07:29 Oxygen Flow Rate (L/min) 4 Oxygen Delivery Method Nasal Cannula Weight: 384 lb 11.306 oz Body Mass Index (BMI) 52.1 Intake & Output: Intake and Output for Last 24 Hours 04/26/22 04/27/22 04/28/22 23:59 23:59 23:59 Intake Total 700 / 1140 1300 / 1300 420 / 420 Output Total 88725 / 10887 4100 / 4900 1200 / 1200 Balance -26674 / -09870 -2800 / -3600 -780 / -780 Lab / Micro Data Result Diagrams: 04/28/22 04:45 04/28/22 04:45 Labs: Laboratory Results - last 24 hr 04/27/22 06:41: POC Glucose 104 04/27/22 12:02: POC Glucose 189 H 04/27/22 16:53: POC Glucose 152 H 04/27/22 21:44: POC Glucose 124 H 04/28/22 04:45: WBC 8.9, RBC 4.56 L, Hgb 12.7 L, Hct 42.6, MCV 93.4, MCH 27.9, MCHC 29.8 L, RDW Std Deviation 49.5 H, RDW Coeff of Cedric 14.6, Plt Count 183, MPV 9.0, Immature Gran % (Auto) 0.300, Neut % (Auto) 76.3 H, Lymph % (Auto) 12.5 L, [place] % (Auto) 8.0, Eos % (Auto) 2.6, Baso % (Auto) 0.3, Absolute Neuts (auto) 6.8, Absolute Lymphs (auto) 1.11, Nucleated RBC % 0 04/28/22 04:45: Sodium 139, Potassium 3.6, Chloride 92 L, Carbon Dioxide > 45.0 H*, Anion Gap TNP, BUN 25 H, Creatinine 0.90, Estim Creat Clear Calc 91.01, Est GFR (MDRD) Af Amer 109, Est GFR (MDRD) Non-Af 90, BUN/Creatinine Ratio 27.7 H, Glucose 124 H, Calcium 8.7, Total Bilirubin 0.60, AST 12 L, ALT 16, Alkaline Phosphatase 46, Total Protein 7.2, Albumin 2.9 L, Globulin 4.3 H, Albumin/Globulin Ratio 0.7 L 04/28/22 06:04: POC Glucose 121 H Micro: Microbiology 04/25/22 11:50 Sputum, Expectorated/Coughed Gram Stain - Final 04/25/22 11:50 Sputum, Expectorated/Coughed Respiratory Culture - Final Mixed normal respiratory ethel. No Streptococcus pneumoniae, beta-hemolytic Streptococcus or Staphylococcus aureus isolated. Assessment & Plan Assessment/Plan (1) DM type 2 (diabetes mellitus, type 2): QUALIFIERS: Diabetes mellitus termite technician insulin use: without penitentiary use Diabetes mellitus complication status: with unspecified complications Qualified Code(s): E11.8 - Type 2 diabetes mellitus with unspecified complications PLAN: Plan 1. Acute on chronic hypoxic respiratory failure secondary to acute exacerbation of CHF with preserved EF, improving Patient remains on 5 L of oxygen; on 4 L of oxygen chronically; He was on BiPAP in [facility] Acute PE ruled out with a negative CTA of the chest done in [place] Will continue CHF management, wean off oxygen for SPO2 more than 94% 2. Acute exacerbation heart failure with preserved EF, EF 55%, improving 2D echo done yesterday showed an EF of 55%, left ventricular systolic function Patient presented with a BNP of more than 1000; He has diuresed well and is currently -27L (unsure of accuracy) Continue on Lasix 40 mg IV every BID (patient seems to be developing contraction alkalosis), Continue with CHF protocol Cardiology following 3. Acute NSTEMI, likely type 2, POA, Troponins on admission 153 -->141--129 H/o CAD status post stents, Medical management recommended Continue with aspirin, Plavix, statin, enalapril 4. Type II DM, blood sugars are better controlled Continue to hold metformin and glimepiride Continue to monitor blood sugars with insulin sliding scale with blood glucose checks 5. Hypertension, controlled, Continue to hold hydrochlorothiazide, Continue on enalapril, Coreg Patient should probably be off amlodipine on account of bilateral leg edema -we will monitor 6. Morbid obesity, BMI 52.1, lifestyle modification recommended 7. DVT prophylaxis?Lovenox
--- NOTE | 2022-04-28 08:59 | PCM.DC ---
Discharge Instructions Diet Discharge Diet: Low fat / Low cholesterol, 1800 Calorie Control Diet and 6 Cup Fluid Restriction Activity Weight Bearing Status: Weight bearing as tolerated Dressing / Incision Call your doctor if you observe: Fever of 101 or Higher, Coldness, Increased Pain, Numbness or Tingling, Change in Color, Inability to urinate, Inability to have a bowel movement, Shortness of breath, Dizziness, Fainting spells, Swelling in the ankles, Chest pain, Prolonged hiccupping, Increased palpitations (irregular heartbeat), Calf discomfort and Uncontrolled pain Follow Up Care Test Results: Test results from this visit will be discussed in further detail at your follow-up appointment, if applicable. Discharge Plan Admission Admit Date/Time: 04/25/22 10:27 Primary Reason for Your Visit: Acute on chronic hypoxic respiratory failure Attending Provider: Tommie Trotter Primary Care Provider: Winsome Lorenzo NP Consulting Providers: Misti Burns ; Cherise Ramirez ; Alex Mcdonald ; Bridgre Salas ; Ti Ferreira ; Joce Quintana ; Bola Hernandez ; Sheba Forbes ; Marito Marcus ; Efra Chau ; Avinash Duarte ; Wallace Villanueva ; Wolf Barnett ; Edi Stanford ; Yadiel Karimi POULTRY PROCESS WORKER ; Misti Guevara NP ; Dora Hinojosa PA ; Olimpia Ortiz Discharge Orders/Prescriptions Prescriptions: New Jardiance 10 mg Tablet 10 mg PO DAILY Qty: 30 2RF furosemide [Lasix] 40 mg tablet 40 mg PO BID Qty: 60 2RF Continued aspirin [Adult Low Dose Aspirin] 81 mg tablet,delayed release (DR/EC) 81 mg PO QDAY coenzyme Q10 [Co Q-10] 100 mg capsule 200 mg PO PRN PRN (Reason: general health) enalapril maleate 20 mg tablet 20 mg PO BID Qty: 180 3RF albuterol sulfate 90 mcg/actuation HFA aerosol inhaler 2 puff INHALATION Q4H PRN (Reason: Wheezing) Qty: 8.5 1RF (DME) Blood Glucose Test Strip See Dose Instructions .ROUTE .MEDSUPPLY Qty: 200 3RF Dose Instruction: As directed Rx Instructions: use to check bg bid (DME) lancets 30 gauge misc See Dose Instructions .ROUTE .MEDSUPPLY Qty: 200 5RF Dose Instruction: As directed Rx Instructions: use to check BG bid metformin 500 mg tablet 1,000 mg PO BID carvedilol [Coreg] 25 mg tablet 25 mg PO BID clopidogrel 75 mg tablet 75 mg PO DAILY amlodipine 5 mg tablet 5 mg PO DAILY glimepiride 4 mg tablet 4 mg PO BID rosuvastatin 20 mg tablet 20 mg PO DAILY (DME) blood-glucose meter misc See Dose Instructions .ROUTE .MEDSUPPLY Qty: 1 0RF Dose Instruction: As directed Rx Instructions: use to check BG bid nitroglycerin 0.4 mg tablet, sublingual 0.4 mg SUBLINGUAL Q5-15M PRN (Reason: chest pain) Qty: 25 6RF Held hydrochlorothiazide 25 mg tablet 25 mg PO QDAY Hold Instructions: Hold while patient is on Lasix/furosemide Referrals / Follow Up: Winsome Lorenzo NP, POULTRY PROCESS WORKER-C [Primary Care Provider] - Disposition Disposition (needs filled in before D/C Order can be placed): Home, Self Care
--- NOTE | 2022-04-28 09:08 | PCM.DC.SUM ---
Providers Date of Admission: 04/25/22 Date of Discharge: 04/28/22 Primary Care Physician: KERA Kaiser Consultations 04/25/22 09:39 Consult: Cardiology Routine Consulting Provider: Asa Arango Reason for Consult: CHF EMERGENT Consult: No MD Notified: Yes Date Notified: 04/25/22 Time Notified: 10:04 Method of Notification: Text Reason For Visit: direct admit Diagnosis Discharge Diagnosis (1) DM type 2 (diabetes mellitus, type 2): Status: Chronic Code(s): E11.9 - Type 2 diabetes mellitus without complications Qualifiers: Diabetes mellitus career and guidance counselor insulin use: without shelter use Diabetes mellitus complication status: with unspecified complications Qualified Code(s): E11.8 - Type 2 diabetes mellitus with unspecified complications Plan 1. Acute on chronic hypoxic respiratory failure secondary to acute exacerbation of CHF with preserved EF, improving Patient remains on 5 L of oxygen; on 4 L of oxygen chronically; He was on BiPAP in [facility] Acute PE ruled out with a negative CTA of the chest done in [place] Will continue CHF management, wean off oxygen for SPO2 more than 94% 2. Acute exacerbation heart failure with preserved EF, EF 55%, improving 2D echo done yesterday showed an EF of 55%, left ventricular systolic function Patient presented with a BNP of more than 1000; He has diuresed well and is currently -27L (unsure of accuracy) Continue on Lasix 40 mg IV every BID (patient seems to be developing contraction alkalosis), Continue with CHF protocol Cardiology following 3. Acute NSTEMI, likely type 2, POA, Troponins on admission 153 -->141--129 H/o CAD status post stents, Medical management recommended Continue with aspirin, Plavix, statin, enalapril 4. Type II DM, blood sugars are better controlled Continue to hold metformin and glimepiride Continue to monitor blood sugars with insulin sliding scale with blood glucose checks 5. Hypertension, controlled, Continue to hold hydrochlorothiazide, Continue on enalapril, Coreg Patient should probably be off amlodipine on account of bilateral leg edema -we will monitor 6. Morbid obesity, BMI 52.1, lifestyle modification recommended 7. DVT prophylaxis?Lovenox Medications at Discharge Home Medications aspirin 81 mg tablet,delayed release (Adult Low Dose Aspirin) 81 mg PO QDAY [facility] 05/19/17 blood-glucose meter #1 ea 08/23/18 coenzyme Q10 100 mg capsule (Co Q-10) 200 mg PO PRN PRN general health 08/20/20 albuterol sulfate 90 mcg/actuation aerosol inhaler 2 puff inhalation Q4H PRN Wheezing #8.5 grams 07/01/21 blood sugar diagnostic (Blood Glucose Test strips) #200 ea 07/01/21 lancets 30 gauge #200 ea 07/01/21 enalapril maleate 20 mg tablet 20 mg PO BID #180 tabs 08/20/21 nitroglycerin 0.4 mg sublingual tablet 0.4 mg sublingual Q5-15M PRN chest pain #25 tabs 11/12/21 amlodipine 5 mg tablet 5 mg PO DAILY blood pressure 04/25/22 carvedilol 25 mg tablet (Coreg) 25 mg PO BID heart 04/25/22 clopidogrel 75 mg tablet 75 mg PO DAILY antiplatlet 04/25/22 glimepiride 4 mg tablet 4 mg PO BID diabetes 04/25/22 hydrochlorothiazide 25 mg tablet 25 mg PO QDAY diuretic 04/25/22 metformin 500 mg tablet 1,000 mg PO BID diabetes 04/25/22 rosuvastatin 20 mg tablet 20 mg PO DAILY lowers cholesterol 04/25/22 empagliflozin 10 mg tablet (Jardiance) 10 mg PO DAILY #30 tabs 04/28/22 furosemide 40 mg tablet (Lasix) 40 mg PO BID #60 tabs 04/28/22 Hospital Course Summary of Care Provided Hospital Course: This is 66-year-old gentleman with morbid obesity was directly admitted with shortness of breath for 2 days along with fatigue from [place] ED. Patient chronically on 4 L of home oxygen but he was hypoxic, 64% on room air, 96% on 5 L of oxygen and then was put on BiPAP 50% FiO2 saturating 97%. His rapid COVID-19 PCR, influenza and RSV were negative. proBNP was 1007. Bicarb 36. CTA chest was negative for acute PE but bilateral small pleural effusion right greater than left and bilateral lower lobe compressive atelectasis and bilateral multifocal interstitial alveolar/groundglass opacities secondary to edema or infection. He was admitted on the monitored PCU floor. His further hospital course, assessment, diagnosis and management as follows: 1. Acute on chronic hypoxic respiratory failure secondary to acute exacerbation of CHF with preserved EF, improved: On the day of discharge patient on 4 L of oxygen. Patient was on BiPAP in [place] Hospital admission as above. The patient will need follow-up in pulmonary clinic for PFT and sleep study. 2. Acute exacerbation heart failure with preserved EF, EF 55%, improving 2D echo done on 04/25/2022 showed an EF of 55%, left ventricular systolic function Patient presented with a BNP of more than 1000; He has diuresed well and is currently -27L (unsure of accuracy) Continue on Lasix 40 mg IV every BID. Patient had bicarb more than 45 for last 2 days. Lasix IV discontinued. Recommend starting Lasix 40 mg p.o. twice daily from tomorrow morning. ABG was ordered, to know baseline PCO2 but not done yet. Empagliflozin was added by silk screen layout drafter and prescription given for the same. Prescription also given for furosemide. 3. Acute NSTEMI, likely type 2, POA, Troponins on admission 153 -->141--129 H/o CAD status post stents, Medical management recommended Continue with aspirin, Plavix, statin, enalapril 4. Type II DM, blood sugars are better controlled Continue to hold metformin and glimepiride Continue to monitor blood sugars with insulin sliding scale with blood glucose checks 5. Hypertension, controlled, Continue to hold hydrochlorothiazide, Continue on enalapril, Coreg Patient should probably be off amlodipine on account of bilateral leg edema -we will monitor 6. Morbid obesity, BMI 52.2, lifestyle modification recommended 7. DVT prophylaxis?Lovenox Physical Exam Narrative Seen and examined on the day of discharge. Patient chronically on oxygen which currently is on. Shortness of breath is much improved. Physical exam General: Alert, Oriented x3, Cooperative HEENT: Atraumatic, PERRLA, EOMI, Normocephalic Oral: No oral ulcerations. Deep oropharyngeal could not be clearly visualized Neck: Supple, No JVD, Negative Carotid Bruits Lungs: Air entry diminished in bilateral lung bases. No crepitation/rhonchi/wheezing Cardiovascular: Regular rate, Regular Rhythm, Normal S1, Normal S2, No murmurs Abdomen: Bowel Sounds Present, Soft, Non Tender, Non-Distended : Denies dysuria or new LUTS. No renal angle tenderness. No suprapubic tenderness. Extremities: Mild to moderate 1+ lower leg edema, Capillary Refill Less than 3 Seconds Skin: Old healed scar over left lower leg from sunburn this year similar. No seepage or fluid exudate. Musculoskeletal: No Tenderness to Palpation of Joints or Extremities Neurological: Cranial nerves II-XII grossly intact, DTR 2+/4 and Symmetrical, Neuro grossly intact Psych/Mental Status: Normal Affect, Appropriate. Weight / BMI Weight Weight: 384 lb 11.306 oz Body Mass Index (BMI) 52.1 ABG / Lab / Microbiology Data Result Diagrams: 04/28/22 04:45 04/28/22 04:45 Laboratory: Laboratory Results - last 24 hr 04/27/22 06:41: POC Glucose 104 04/27/22 12:02: POC Glucose 189 H 04/27/22 16:53: POC Glucose 152 H 04/27/22 21:44: POC Glucose 124 H 04/28/22 04:45: WBC 8.9, RBC 4.56 L, Hgb 12.7 L, Hct 42.6, MCV 93.4, MCH 27.9, MCHC 29.8 L, RDW Std Deviation 49.5 H, RDW Coeff of Cedric 14.6, Plt Count 183, MPV 9.0, Immature Gran % (Auto) 0.300, Neut % (Auto) 76.3 H, Lymph % (Auto) 12.5 L, [place] % (Auto) 8.0, Eos % (Auto) 2.6, Baso % (Auto) 0.3, Absolute Neuts (auto) 6.8, Absolute Lymphs (auto) 1.11, Nucleated RBC % 0 04/28/22 04:45: Sodium 139, Potassium 3.6, Chloride 92 L, Carbon Dioxide > 45.0 H*, Anion Gap TNP, BUN 25 H, Creatinine 0.90, Estim Creat Clear Calc 91.01, Est GFR (MDRD) Af Amer 109, Est GFR (MDRD) Non-Af 90, BUN/Creatinine Ratio 27.7 H, Glucose 124 H, Calcium 8.7, Total Bilirubin 0.60, AST 12 L, ALT 16, Alkaline Phosphatase 46, Total Protein 7.2, Albumin 2.9 L, Globulin 4.3 H, Albumin/Globulin Ratio 0.7 L 04/28/22 06:04: POC Glucose 121 H Microbiology: Microbiology 04/25/22 11:50 Sputum, Expectorated/Coughed Gram Stain - Final 04/25/22 11:50 Sputum, Expectorated/Coughed Respiratory Culture - Final Mixed normal respiratory ethel. No Streptococcus pneumoniae, beta-hemolytic Streptococcus or Staphylococcus aureus isolated. D/C Instructions Discharge Diet: Low fat / Low cholesterol, 1800 Calorie Control Diet and 6 Cup Fluid Restriction Weight Bearing Status: Weight bearing as tolerated Call your doctor if you observe: Fever of 101 or Higher, Coldness, Increased Pain, Numbness or Tingling, Change in Color, Inability to urinate, Inability to have a bowel movement, Shortness of breath, Dizziness, Fainting spells, Swelling in the ankles, Chest pain, Prolonged hiccupping, Increased palpitations (irregular heartbeat), Calf discomfort and Uncontrolled pain Meaningful Use Info Meaningful Use Diagnoses (Choose all that apply): None applicable and CHF CHF ANGEL/ARB ordered at discharge?: Yes Documented LVEF (%): 55 Discharge Plan Admission Admit Date/Time: 04/25/22 10:27 Primary Reason for Your Visit: Acute on chronic hypoxic respiratory failure Attending Provider: Tommie Trotter Primary Care Provider: Winsome Lorenzo NP Consulting Providers: Misti Burns ; Cherise Ramirez ; Alex Mcdonald ; Bridger Salas ; Ti Ferreira ; Joce Quintana ; Bola Hernandez ; Sheba Forbes ; Marito Marcus ; Efra Chau ; Avinash Duarte ; Wallace Villanueva ; Wolf Barnett ; Edi Stanford ; Yadiel Karimi REPAIRING CALIBRATOR ; Misti Guevara NP ; Dora Hinojosa ; Olimpia Ortiz Discharge Orders/Prescriptions Prescriptions: New Jardiance 10 mg Tablet 10 mg PO DAILY Qty: 30 2RF furosemide [Lasix] 40 mg tablet 40 mg PO BID Qty: 60 2RF Continued aspirin [Adult Low Dose Aspirin] 81 mg tablet,delayed release (DR/EC) 81 mg PO QDAY coenzyme Q10 [Co Q-10] 100 mg capsule 200 mg PO PRN PRN (Reason: general health) enalapril maleate 20 mg tablet 20 mg PO BID Qty: 180 3RF albuterol sulfate 90 mcg/actuation HFA aerosol inhaler 2 puff INHALATION Q4H PRN (Reason: Wheezing) Qty: 8.5 1RF (DME) Blood Glucose Test Strip See Dose Instructions .ROUTE .MEDSUPPLY Qty: 200 3RF Dose Instruction: As directed Rx Instructions: use to check bg bid (DME) lancets 30 gauge misc See Dose Instructions .ROUTE .MEDSUPPLY Qty: 200 5RF Dose Instruction: As directed Rx Instructions: use to check BG bid metformin 500 mg tablet 1,000 mg PO BID carvedilol [Coreg] 25 mg tablet 25 mg PO BID clopidogrel 75 mg tablet 75 mg PO DAILY amlodipine 5 mg tablet 5 mg PO DAILY glimepiride 4 mg tablet 4 mg PO BID rosuvastatin 20 mg tablet 20 mg PO DAILY (DME) blood-glucose meter misc See Dose Instructions .ROUTE .MEDSUPPLY Qty: 1 0RF Dose Instruction: As directed Rx Instructions: use to check BG bid nitroglycerin 0.4 mg tablet, sublingual 0.4 mg SUBLINGUAL Q5-15M PRN (Reason: chest pain) Qty: 25 6RF Held hydrochlorothiazide 25 mg tablet 25 mg PO QDAY Hold Instructions: Hold while patient is on Lasix/furosemide Referrals / Follow Up: Winsome Lorenzo NP, REPAIRING CALIBRATOR-C [Primary Care Provider] - Within 2 Weeks Ti Ferreira MD [Med Staff - Active Staff] - Within 1 Month (For CHF.) Ant Cisse DO [Med Staff - Active Staff] - Within 2 Weeks (For outpatient PFT and sleep study evaluation. On chronic 4 L of O2. ) Disposition Disposition (needs filled in before D/C Order can be placed): Home, Self Care Charges/Coding Visit Charges Inpatient E&M: 34605 Disch Hosp
[2022-04-28] MEDS: amLODIPine 5 MG Tablet PO (09:09)
[2022-04-28] MEDS: Clopidogrel Bisulfate 75 MG Tablet PO (09:09)
[2022-04-28] MEDS: Carvedilol 25 MG Tablet PO (09:09)
[2022-04-28] MEDS: Aspirin E.C. 81 MG Tablet PO (09:10)
[2022-04-28] MEDS: Empagliflozin 10 MG Tablet PO (09:10)
[2022-04-28] MEDS: Glimepiride 4 MG Tablet PO (09:10)
[2022-04-28] MEDS: Lisinopril 20 MG Tablet PO (09:10)
[2022-04-28] MEDS: Enoxaparin 40 MG/0.4 ML Syringe SC (09:11)
--- NOTE | 2022-04-28 10:00 | PHA.DC.MC ---
Pharmacy Service has performed discharge medication reconciliation and counseling for this patient. 1. EMPAGLIFLOZIN 10MG PO DAILY 2. FUROSEMIDE 40MG PO BID The patient's discharge medication list was reviewed for discrepancies and discrepancies were resolved. Home Medications aspirin 81 mg tablet,delayed release (Adult Low Dose Aspirin) 81 mg PO QDAY [facility] 05/19/17 blood-glucose meter #1 ea 08/23/18 coenzyme Q10 100 mg capsule (Co Q-10) 200 mg PO PRN PRN general health 08/20/20 albuterol sulfate 90 mcg/actuation aerosol inhaler 2 puff inhalation Q4H PRN Wheezing #8.5 grams 07/01/21 blood sugar diagnostic (Blood Glucose Test strips) #200 ea 07/01/21 lancets 30 gauge #200 ea 07/01/21 enalapril maleate 20 mg tablet 20 mg PO BID #180 tabs 08/20/21 nitroglycerin 0.4 mg sublingual tablet 0.4 mg sublingual Q5-15M PRN chest pain #25 tabs 11/12/21 amlodipine 5 mg tablet 5 mg PO DAILY blood pressure 04/25/22 carvedilol 25 mg tablet (Coreg) 25 mg PO BID heart 04/25/22 clopidogrel 75 mg tablet 75 mg PO DAILY antiplatlet 04/25/22 glimepiride 4 mg tablet 4 mg PO BID diabetes 04/25/22 hydrochlorothiazide 25 mg tablet 25 mg PO QDAY diuretic 04/25/22 metformin 500 mg tablet 1,000 mg PO BID diabetes 04/25/22 rosuvastatin 20 mg tablet 20 mg PO DAILY lowers cholesterol 04/25/22 empagliflozin 10 mg tablet (Jardiance) 10 mg PO DAILY #30 tabs 04/28/22 furosemide 40 mg tablet (Lasix) 40 mg PO BID #60 tabs 04/28/22 The patient was counseled on the following discharge medications and changes in medications for homegoing were reviewed. The Reason for Use, instructions for use, and potential side effects were reviewed for all new medications. The patient's questions regarding all of their medications were answered. The patient was able to verbally demonstrate an understanding of their discharge medications. Patient was counseled by pharmacy technician, Sharron.
[2022-04-28 10:01] LABS: Allen Test Positive; Base Excess 17 mmol/L (-2 to +2); Bicarbonate 42.8 mmol/L (22-26); Blood Gas Specimen Type ART; PO2 58 mmHG (75-100); SITE R Radial; SO2 87 % (95-99); Total Carbon Dioxide 45 mmol/L; pCO2 74.8 mmHg (35-45); pH 7.37 (7.35-7.45)
--- NOTE | 2022-04-28 10:49 | CASEMGMT ---
Addendum entered by Carina West 04/28/22 11:25: Dr. Trotter states to defer to [facility] for Jardiance. Per Dr. Ferreira, ok to d/c jardiance for now d/t cost. Pt updated on all, voices understanding. Pt states plans to be set up with [facility] in June and will work on part D that covers. Pt has pulse ox at home. Pt voices no further questions/concerns/needs. Pt aware for to bring O2 tank for d/c. Bahman RODRÍGUEZ CM Original Note: Pt qualifies for 4L at rest and 6L w/ exertion and new order sent to [place] via [facility] with note that pt will need bigger concentrator. This MARCOS CM also placed call [place] to update on need for larger concentrator. Pt also to be sent home on Jardiance and per Gwen, pt's cost after insurance is $530.70/month. There is a Jardiance coupon but pt's co-pay/month would still be $355. Dr. Trotter aware. CM to follow. Bahman RODRÍGUEZ CM
[2022-04-28] MEDS: Insulin Lispro 100 UNIT/ML INSULN.PEN SC (11:25)
[2022-04-28 12:10] LABS: Bedside Glucose 169 mg/dL (74-106)
--- NOTE | 2022-04-28 15:16 | CASEMGMT ---
Addendum entered by Carina West 04/28/22 15:53: Call back to pt and he states he heard from [facility] and they will be setting up larger concentrator this evening. Bahman RODRÍGUEZ CM Original Note: Call from pt and he states [facility] is still saying they do not have new order. This RN CM verified it was sent thru [facility] and call to [facility]. Per rep, she is still unable to find in [facility], even by referral number. This RN CM faxed order to [facility] at this time. [facility] rep took this RN CM's number and will call if does not get fax. Fax was confirmed on this end to have gone thru. CM to follow. Bahman RODRÍGUEZ CM
== END 2022-04-28 13:55 | disposition home or self-care (01) | DRG 280 ==
PROVIDERS: Admitting Provider Internal Medicine; PCP Nurse Practitioner Adult Health; Visit Provider Internal Medicine
DX: I11.0 Hypertensive heart disease with heart failure (principal); I21.A1 Myocardial infarction type 2; J96.21 Acute and chronic respiratory failure with hypoxia; I50.33 Acute on chronic diastolic (congestive) heart failure; Z68.43 Body mass index [BMI] 50.0-59.9, adult; E11.40 Type 2 diabetes mellitus with diabetic neuropathy, unspecified; J44.9 Chronic obstructive pulmonary disease, unspecified; E66.01 Morbid (severe) obesity due to excess calories; E78.00 Pure hypercholesterolemia, unspecified; I25.10 Atherosclerotic heart disease of native coronary artery without angina pectoris; Z79.82 Long term (current) use of aspirin; Z79.02 Long term (current) use of antithrombotics/antiplatelets; Z87.891 Personal history of nicotine dependence; Z79.899 Other long term (current) drug therapy; Z79.84 Long term (current) use of oral hypoglycemic drugs; Z86.16 Personal history of COVID-19; Z99.81 Dependence on supplemental oxygen
CPT/HCPCS: 36415; 36600; 80053; 82803; 82962; 83880; 84484; 85025; 87070; 87205; 93005; 93306; 94002; 94003; 94640; 94762; Q9957; A4216; C8929; J1940

== ENCOUNTER → 2023-02-16 | Outpatient (CLI) | payer MEDICARE, OTHER, SELFPAY ==
[2023-02-16 11:14] LABS: Mucous, Urine 0 SEEN /hpf (<or=2+)
[2023-02-16 12:36] LABS: Color, Urine Yellow (Yellow); Glucose, Dipstick Normal (Normal); Ketone-Dipstick Negative (Negative); Leukocyte Esterase-Dipstick 500 /ul (Negative); Nitrite-Dipstick Positive (Negative); Occult Blood-Urine 150 /ul (Negative); Protein-Dipstick 30 mg/dl (Negative); Urine Bilirubin Dipstick Negative (Negative); Urine Clarity Sl. Cloudy (Clear); Urine Urobilinogen Normal (Normal)
[2023-02-16 12:59] LABS: Bacteria 1+ /hpf (None Seen); Red Blood Cells-Urine 10-25 SEEN /hpf (0-5); Squamous Epithelial Cells - UA 0-5 SEEN /hpf (0-5); White Blood Cells 25-50 SEEN /hpf (0-5)
[2023-02-16 13:10] LABS: Microalbumin:Creatinine Ratio 195.1 mg/g CRE (<30 mg/g CRE)
[2023-02-16 13:18] LABS: ALB/GLOB Ratio 0.8 RATIO (0.9-2.4); AST(SGOT) 18 U/L (15-37); Alanine Aminotransfer ALT/SGPT 22 U/L (16-61); Albumin, Serum 3.5 g/dL (3.2-5.0); Alkaline Phosphatase 61 U/L (45-117); Anion Gap 4 (5-15); BUN 20 mg/dL (7-18); BUN/Creat Ratio 22.7 RATIO (10-20); Chloride 98 mmol/L (98-107); Cholesterol 136 mg/dL (200); Creatinine, Serum 0.88 mg/dL (0.70-1.30); EST Glomerular Filtration Rate 92 mL/min (>60); Est Glom Filt Rate - Afr Amer 111 mL/min (>60); Globulin 4.5 g/dL (2.2-4.2); Glucose 155 mg/dL (74-106); High Density Lipoprotein 35 mg/dL; Potassium 4.5 mmol/L (3.5-5.1); Sodium Level 136 mmol/L (136-145); Thyroid Stim Hormone (TSH) 2.64 uIU/mL (0.358-3.74); Triglycerides 146 mg/dL; Very Low Density Lipoprotein 29 mg/dL (5-40)
== END | disposition home or self-care (01) ==
PROVIDERS: PCP Nurse Practitioner Adult Health; Referring Provider Internal Medicine Endocrinology, Diabetes & Metabolism; Visit Provider Internal Medicine Endocrinology, Diabetes & Metabolism
DX: I10 Essential (primary) hypertension (principal); E11.40 Type 2 diabetes mellitus with diabetic neuropathy, unspecified; E78.00 Pure hypercholesterolemia, unspecified; E66.9 Obesity, unspecified; R30.0 Dysuria
CPT/HCPCS: 36415; 80053; 80061; 81001; 82043; 82570; 84443; 87086; 87088; 87186